=== PATIENT | male | born 1940 | race Caucasian/White ===

== ENCOUNTER → 2017-03-31 14:11 | Outpatient (CLI) | payer MEDICARE, OTHER, SELFPAY ==
[2017-03-31 15:52] LABS: BUN 24 mg/dL (7-18); Creatinine, Serum 1.49 mg/dL (0.70-1.30); EST Glomerular Filtration Rate 49 mL/min (>60); Est Glom Filt Rate - Afr Amer 59 mL/min (>60)
== END ==
PROVIDERS: Family Provider Family Medicine Geriatric Medicine; PCP Family Medicine Geriatric Medicine; Visit Provider Surgery Vascular Surgery
DX: I65.23 Occlusion and stenosis of bilateral carotid arteries (principal); I70.213 Atherosclerosis of native arteries of extremities with intermittent claudication, bilateral legs; E11.9 Type 2 diabetes mellitus without complications; I25.10 Atherosclerotic heart disease of native coronary artery without angina pectoris; E78.00 Pure hypercholesterolemia, unspecified; I10 Essential (primary) hypertension; Z85.038 Personal history of other malignant neoplasm of large intestine; Z87.891 Personal history of nicotine dependence
CPT/HCPCS: 36415; 82565; 84520

== ENCOUNTER → 2017-04-26 07:49 | Outpatient (CLI) | payer MEDICARE, OTHER, SELFPAY ==
--- NOTE | 2017-04-26 07:53 | CT_ITS ---
STUDY: CTA NECK WITH CONTRAST REASON FOR EXAM: Male, 76 years old. History of carotid stenosis. RADIATION DOSAGE (If Supplied By Facility): CTDIvol = ( 18.46 ) mGy, DLP = ( 642.75 ) mGycm TECHNIQUE: CT angiography with multi-detector data acquisition was performed from the aortic arch to the skull base following intravenous administration of 100 ml of Isovue 370 contrast. MIP images were reconstructed from the axial data set. Post-processing of the angiographic images was performed, with multiplanar reformation and 3D reconstruction. Individualized dose optimization techniques were used for this CT. COMPARISON: None. FINDINGS: AORTIC ARCH: There is atherosclerotic calcific plaque formation of the aortic arch and great vessels arising from the aortic arch, without a hemodynamically significant stenosis. There is a normal origin of the brachiocephalic, left common carotid, and left subclavian arteries. Prior coronary artery bypass surgery. Normal origins of the brachiocephalic, left common carotid, and left subclavian arteries. RIGHT CAROTID ARTERIES: Normal right common carotid artery (CCA). Normal right common carotid bulb. There is moderate atherosclerotic plaque formation of the origin of the right internal carotid artery with an estimated stenosis of 50-69% stenosis. Findings suggestive of a ulcerated plaque at the origin of the right internal carotid artery. Normal visualized cervical portion of the right internal carotid artery. Normal origin of the right external carotid artery (ECA). LEFT CAROTID ARTERIES: Normal left common carotid artery (CCA). Normal left common carotid bulb. There is mild atherosclerotic plaque formation of the origin of the left internal carotid artery with less than 50% cross sectional diameter stenosis. Normal visualized cervical portion of the left internal carotid artery. Normal origin of the left external carotid artery (ECA). VERTEBRAL ARTERIES: There is enhancement within the bilateral vertebral arteries with a small right vertebral artery, and a dominant left vertebral artery. CT/CTA Neck W/WO Contrast IMPRESSION: 50-70% narrowing of the right internal carotid artery at its origin with the findings suggestive of possible ulceration at its origin. Electronically Signed: Zain Collier MD at 11:48 EST Tel [phone], Service support ,
--- NOTE | 2017-04-26 08:07 | AAVD_ITS ---
Reason For Study: Atherosclerosis Aorta Measurements Aorta Doppler Measurements Proximal aorta measures1.51cm x 1.49cm. in cross-Peak systolic flow velocities within the proximal sectional axis. aorta measure 85 cm/sec. Proximal aorta measures1.53cm. in longitudinal Peak systolic flow velocities within the mid axis. aorta measure 89 cm/sec. Mid aorta measures1.46cm x 1.66cm. in cross- Peak systolic flow velocities within the distal sectional axis. aorta measure 82 cm/sec. Mid aorta measures1.46cm. in longitudinal axis. Distal aorta measures1.34cm x 1.46cm. in cross- sectional axis. Distal aorta measures1.40cm. in longitudinal axis. Left Iliac Artery Peak systolic velocity in the left iliac artery measures 134 cm/sec. Left iliac artery measures 1.38cm x1.47 cm. in the cross-sectional axis. Left iliac artery measures 1.22 cm. in the longitudinal axis. Right Iliac Artery Right iliac artery measures 0.94cm x 1.01 cm. in the cross-sectional axis. Right iliac artery measures 1.10 cm. in the longitudinal axis. Peak systolic velocity in the right iliac artery measures 124 cm/sec. Procedure Aorta IVC Iliac vasculature or bypass grafts [id number]. The exam was of poor technical quality due to bowel gas. Exam performed in department. Interpretation Summary 1. Aortoiliac with no aneurysm or stenosis seen. Ordering Physician: Luis Antonio Harrell Referring Physician: Hunter Becker Chi Performed By: Kacie Freitas, RO, RVT
--- NOTE | 2017-04-28 13:22 | LEAS ---
Arterial Study - Arterial Study Arterial Study: Date of scan 04/26/[address] Harrell Patient with a history of iliac stenting here for follow-up evaluation Interpretation: Right lower extremity normal pulsatile flow noted at the ankle duplex showing triphasic flow both vessels at the ankle with an SE 0.99 in the posterior tib 1.0 for the dorsalis pedis. Digital brachial index 0.55 next Left lower extremity normal pulsatile flow noted at the ankle again triphasic flow is noted with a SE 0.99 in the posterior tibial and 1.07 of the dorsalis pedis. Digital brachial index 0.52 Impression: 1. Bilateral lower extremities with no evidence significant arterial occlusive disease at rest with triphasic flow noted SE 1.04 and 1.07. 2. Mild small vessel disease bilaterally with digit brachial index 0.55 and 0.52
--- NOTE | 2017-04-28 13:27 | LEAS_ITS ---
Arterial Study - Arterial Study Arterial Study: Date of scan 04/26/[address] Harrell Patient with a history of iliac stenting here for follow-up evaluation Interpretation: Right lower extremity normal pulsatile flow noted at the ankle duplex showing triphasic flow both vessels at the ankle with an SE 0.99 in the posterior tib 1.0 for the dorsalis pedis. Digital brachial index 0.55 next Left lower extremity normal pulsatile flow noted at the ankle again triphasic flow is noted with a SE 0.99 in the posterior tibial and 1.07 of the dorsalis pedis. Digital brachial index 0.52 Impression: 1. Bilateral lower extremities with no evidence significant arterial occlusive disease at rest with triphasic flow noted SE 1.04 and 1.07. 2. Mild small vessel disease bilaterally with digit brachial index 0.55 and 0.52
== END ==
PROVIDERS: Family Provider Family Medicine Geriatric Medicine; PCP Family Medicine Geriatric Medicine; Visit Provider Surgery Vascular Surgery
DX: I65.23 Occlusion and stenosis of bilateral carotid arteries (principal); I70.213 Atherosclerosis of native arteries of extremities with intermittent claudication, bilateral legs; E11.9 Type 2 diabetes mellitus without complications; I25.10 Atherosclerotic heart disease of native coronary artery without angina pectoris; E78.00 Pure hypercholesterolemia, unspecified; Z85.038 Personal history of other malignant neoplasm of large intestine; Z87.891 Personal history of nicotine dependence
CPT/HCPCS: 70498; 93922; 93978; Q9967

== ENCOUNTER → 2017-05-23 13:48 | Outpatient (CLI) | payer MEDICARE, OTHER, SELFPAY ==
[2017-05-23 14:19] LABS: Absolute Lymphocyte Count 2.14 X10^3/ul (0.83-4.51); Absolute Neutrophil Count 3.1 X10^3/uL (2.0-7.7); Basophil# 0.02 X10^3/uL; Basophil% 0.3 % (0-1); Eosinophil# 0.22 X10^3/uL; Eosinophils% 3.7 % (0-5); Hemoglobin 14.2 g/dl (13.0-16.5); Lymphocyte # 2.14 X10^3/ul (4.0); Mean Corpuscular Hgb 31.1 pg (27.0-32.0); Mean Corpuscular Volume 94.1 fL (80-94); Monocyte# 0.44 X10^3/uL; Monocyte% 7.4 % (0-10); Neutrophil # 3.11 X10^3/uL (2.7-7.7); Neutrophil % 52.4 % (47-70); POSITIVE COUNT NO; POSITIVE DIFFERENTIAL NO; POSITIVE MORPHOLOGY NO; Platelet Count 246 K/mm3 (150-450); RBC Distribution Width CV 13.3 % (11.6-14.6); RBC Distribution Width SD 45.8 fl (35.1-43.9); Red Blood Count 4.57 M/mm3 (4.6-6.2); White Blood Count 5.9 K/mm3 (4.4-11.0)
[2017-05-23 14:42] LABS: ALB/GLOB Ratio 0.9 RATIO (0.9-2.4); AST(SGOT) 11 U/L (15-37); Alanine Aminotransfer ALT/SGPT 22 U/L (16-61); Albumin, Serum 3.6 g/dL (3.2-5.0); Alkaline Phosphatase 83 U/L (45-117); Anion Gap 5 (5-15); BUN 18 mg/dL (7-18); BUN/Creat Ratio 15.9 RATIO (10-20); Calcium,Total 8.9 mg/dL (8.5-10.1); Chloride 106 mmol/L (98-107); Creatinine, Serum 1.13 mg/dL (0.70-1.30); EST Glomerular Filtration Rate 67 mL/min (>60); Est Glom Filt Rate - Afr Amer 81 mL/min (>60); Globulin 4.2 g/dL (2.2-4.2); Glucose 102 mg/dL (74-106); Potassium 4.5 mmol/L (3.5-5.1); Protein, Total 7.8 g/dL (6.4-8.2); Sodium Level 139 mmol/L (136-145)
[2017-05-24 08:33] LABS: Vitamin D,25 Hydroxy 29.9 ng/mL (29.95-100.01)
== END ==
PROVIDERS: Family Provider Family Medicine Geriatric Medicine; PCP Family Medicine Geriatric Medicine; Visit Provider Family Medicine Geriatric Medicine
DX: E11.9 Type 2 diabetes mellitus without complications (principal); I10 Essential (primary) hypertension; E55.9 Vitamin D deficiency, unspecified
CPT/HCPCS: 36415; 80053; 82306; 84443; 85025

== ENCOUNTER → 2017-05-23 14:09 | Outpatient (CLI) | payer MEDICARE, OTHER, SELFPAY ==
--- NOTE | 2017-05-23 14:11 | CT_ITS ---
STUDY: CT CHEST WITH CONTRAST REASON FOR EXAM: Male, 76 years old. Shortness of breath. History of lung cancer with a left upper lobe resection. History of colon cancer as well. RADIATION DOSAGE (If Supplied By Facility): CTDIvol = ( 16.42 ) mGy, DLP = ( 588.32 ) mGycm TECHNIQUE: Transaxial imaging was performed following intravenous administration of 100 ml of Isovue 300 contrast material. Multiplanar coronal and sagittal images were reformatted. Individualized dose optimization techniques were used for this CT. COMPARISON: Comparison is made with prior examination dated October 20, 2015. FINDINGS: A left-sided portacatheter is seen. Small bilateral axillary lymph nodes. The previously seen left upper lobe spiculated nodule has been removed. There is evidence of postoperative changes with volume loss in the left upper lobe 8 with prior lobectomy. There is evidence of a small left pleural effusion with left basilar atelectasis. Emphysematous changes are seen in the lungs more prominent in the right lung. Sternal cerclage wires and vascular clips are present from a prior sternotomy and coronary artery bypass graft procedure (CABG). There are calcifications of the coronary arteries. There is a 1.3 cm x 0.8 cm filling defect in the left atrium just proximal to the insertion of the left inferior pulmonary venous return. There are multiple small lymph nodes within the mediastinum, which are normal in size and morphology most compatible with reactive lymph hyperplasia. Normal hilar regions. Normal enhanced pulmonary arteries. There is atherosclerotic calcification of the aortic arch arch and descending thoracic aorta. There are multi-level degenerative changes of the thoracic spine. There is no demonstrated abnormality of the visualized upper abdomen. CT/Chest WITH Contrast IMPRESSION: Status post left upper lobectomy with resection. Small left pleural effusion with underlying atelectasis at the left lung base. Filling defect in the left atrium as described. This most likely represents a thrombus. Electronically Signed: Zain Collier MD at 15:29 EDT Tel [phone], Service support ,
== END ==
PROVIDERS: Family Provider Family Medicine Geriatric Medicine; PCP Family Medicine Geriatric Medicine; Visit Provider Family Medicine Geriatric Medicine
DX: C34.90 Malignant neoplasm of unspecified part of unspecified bronchus or lung (principal); R06.02 Shortness of breath
CPT/HCPCS: 36415; 71260; 80053; 82306; 84443; 85025; Q9967

== ENCOUNTER → 2017-06-16 08:53 | Outpatient (CLI) | payer MEDICARE, OTHER, SELFPAY ==
--- NOTE | 2017-06-16 08:55 | ECHOD_ITS ---
Reason For Study: Assess LA for thrombus Procedure This was a 2D Doppler, Color Flow transthoracic echocardiogram. The exam was of fair technical quality due to diminished acoustic windows. The study was technically difficult. Exam performed in department. Left Ventricle Normal LV size. Left ventricular systolic function is normal. The estimated ejection fraction is 60 %. No regional wall motion abnormalities noted. Right Ventricle Normal RV size. ICD or pacer leads identified within the right ventricle. Normal systolic function. Atria The left atrium is mildly enlarged. Normal right atrium. ICD or pacer leads identified within the right atrium. No doppler evidence for ASD. Mitral Valve There is mild mitral annular calcification. Mild diffuse mitral valve thickening. Mild focal mitral valve calcification, bileaflet. Mild mitral valve prolapse. Trivial mitral valve insufficiency. Tricuspid Valve Normal tricuspid valve. Trivial tricuspid valve insufficiency. Aortic Valve The bioprosthetic aortic valve apparatus is not well visualized, however, based upon the 2D echocardiographic images obtained it appears stable. Mild to moderate aortic stenosis. Pulmonic Valve The pulmonic valve is not well visualized. Trivial pulmonic valve insufficiency. Great Vessels Normal sized aortic root. Calcified aortic root. Pericardium/Pleural No pericardial effusion. MMode/2D Measurements & Calculations LVIDd: 4.2 cm IVSd: 1.3 cm LVOT diam: 2.1 cm LVIDs: 2.9 cm LVPWd: 1.2 cm LVOT area: 3.3 cm2 FS: 30.6 % Ao root diam: 3.2 cm Doppler Measurements & Calculations MV E max moisés: 102.9 cm/sec Lat Peak E' Moisés: 4.8 cm/sec Med Peak E' Moisés: 3.2 cm/sec MV A max moisés: 161.9 cm/sec E/E' lat: 21.5 E/E' med: 32.5 MV E/A: 0.64 MV V2 max: 175.0 cm/sec Ao V2 max: 310.2 cm/sec LV V1 max: 139.6 cm/sec MV max P.3 mmHg Ao max P.5 mmHg LV V1 max P.8 mmHg MV V2 mean: 103.8 cm/sec Ao V2 mean: 217.5 cm/sec LV V1 mean P.8 mmHg MV mean P.8 mmHg Ao mean P.6 mmHg LV V1 mean: 104.3 cm/sec MV V2 VTI: 41.0 cm Ao V2 VTI: 70.7 cm LV V1 VTI: 32.7 cm MVA(VTI): 2.7 cm2 BHAKTI(I,D): 1.5 cm2 BHAKTI(V,D): 1.5 cm2 SV(LVOT): 109.3 ml PA V2 max: 79.1 cm/sec Interpretation Summary The study was technically difficult. Left ventricular systolic function is normal. The estimated ejection fraction is 60 %. The left atrium is mildly enlarged. There is mild mitral annular calcification. Mild diffuse mitral valve thickening. Mild focal mitral valve calcification, bileaflet. Mild mitral valve prolapse. Trivial mitral valve insufficiency. Trivial tricuspid valve insufficiency. The bioprosthetic aortic valve apparatus is not well visualized, however, based upon the 2D echocardiographic images obtained it appears stable. Mild to moderate aortic stenosis. Trivial pulmonic valve insufficiency. Calcified aortic root. ICD or pacer leads identified within the right atrium ICD or pacer leads identified within the right ventricle. Transmitral diastolic flow velocities suggest diastolic dysfunction. 2D echocardiographic images obtained demonstrate a vague echodensity in the left atrium (approximately 1.0 cm x 1.5 cm) of uncertain etiology potentially c/w echocardiographic artifact, however, other etiologies cannot be excluded. Consider further evaluation with ELIJAH if clinically indicated. Ordering Physician: Hunter Becker Referring Physician: Hunter Becker Chi Performed By: Sulema Gongora RDCS
== END ==
PROVIDERS: Family Provider Family Medicine Geriatric Medicine; PCP Family Medicine Geriatric Medicine; Visit Provider Family Medicine Geriatric Medicine
DX: I23.6 Thrombosis of atrium, auricular appendage, and ventricle as current complications following acute myocardial infarction (principal)
CPT/HCPCS: 93306

== ENCOUNTER → 2017-07-18 10:00 | Outpatient (CLI) | payer MEDICARE, OTHER, SELFPAY ==
--- NOTE | 2017-07-18 10:02 | ECHOTEE_ITS ---
Reason For Study: ATRIAL THROMBUS Medication ELIJAH probe passed with minimal difficulty. No complications were noted. Cetacaine Topical Orbisonia given X3 orally. Versed 2 mg given slow IVP. Fentanyl 100 mcg given slow IVP. Performed a rapid injection of agitated mix of 9 cc saline and 1cc air to assess for atrial septal defect. Left Ventricle Normal LV size. Left ventricular systolic function is normal. The estimated ejection fraction is 65 %. No regional wall motion abnormalities noted. Right Ventricle Normal RV size. ICD or pacer leads identified within the right ventricle. Normal systolic function. Atria No doppler evidence for ASD. Bubble contrast study negative for right to left interatrial shunt. The left atrium is mildly enlarged. There is no sponatenous contrast in the left atrium. No thrombus is detected in the left atrial appendage. Normal right atrium. There is no sponatenous contrast in the right atrium. No RA / appendage thrombus identified. ICD or pacer leads identified within the right atrium. Mitral Valve There is mild mitral annular calcification. Mild diffuse mitral valve thickening. Mild focal mitral valve calcification, bileaflet. Mild-Moderate (1-2+) mitral valve insufficiency. Tricuspid Valve Normal tricuspid valve. Trivial tricuspid valve insufficiency. Aortic Valve Stable appearing bioprosthetic aortic valve apparatus. Pulmonic Valve The pulmonic valve is not well visualized. Vessels Moderate atherosclerosis of the descending aorta. Pericardium No pericardial effusion. Interpretation Summary Left ventricular systolic function is normal. The estimated ejection fraction is 65 %. The left atrium is mildly enlarged. There is no sponatenous contrast in the left atrium. No thrombus is detected in the left atrial appendage. There is mild mitral annular calcification. Mild diffuse mitral valve thickening. Mild focal mitral valve calcification, bileaflet. Mild-Moderate (1-2+) mitral valve insufficiency. Trivial tricuspid valve insufficiency. Stable appearing bioprosthetic aortic valve apparatus. Bubble contrast study negative for right to left interatrial shunt. Moderate atherosclerosis of the descending aorta. ICD or pacer leads identified within the right atrium ICD or pacer leads identified within the right ventricle. 2D echocardiographic images appearing c/w a prominent Ridge of Warfarin. Comment: C/W the previous ELIJAH of 01/08/2013 there are similar type findings. Ordering Physician: Henrik Caldwell Referring Physician: Hunter Becker Chi Performed By: Cassandra Hoover, RO, RVT
--- NOTE | 2017-07-18 13:04 | PCM.HP.BLA ---
Problem List (1) Left atrial mass Status: Acute History and Physical Date of Admission: 07/18/17 Date: 07/18/2017 Pre-transesophageal echocardiogram H&P update/addendum For history of present illness, past medical history, family history, social history, review of systems, physical examination, impression and plan, please see previously dictated outpatient history of present illness. The patient has undergone noncardiovascular evaluation. He had a chest CT scan performed on 05/23/2017. Per the radiology report there was concerns of an underlying left atrium filling defect concerning for thrombus. The patient subsequently underwent a thoracic echocardiogram. Based upon the transthoracic echocardiographic images a left atrial echodensity could not be excluded. Thus the patient has been referred for further evaluation with transesophageal echocardiogram to evaluate for any obvious intracardiac mass lesion/thrombus, etc. The procedure and risks have been discussed with the patient and he was agreeable to this approach. This procedure is scheduled for [facility] on 07/18/2017.
== END ==
PROVIDERS: Family Provider Family Medicine Geriatric Medicine; PCP Family Medicine Geriatric Medicine; Visit Provider Internal Medicine Cardiovascular Disease
DX: I44.2 Atrioventricular block, complete (principal); R93.1 Abnormal findings on diagnostic imaging of heart and coronary circulation
CPT/HCPCS: 93312; 93320; 93325; J7030

== ENCOUNTER → 2017-08-31 12:12 | Outpatient (CLI) | payer MEDICARE, OTHER, SELFPAY ==
[2017-08-31 12:32] LABS: Absolute Lymphocyte Count 1.66 X10^3/ul (0.83-4.51); Absolute Neutrophil Count 5.7 X10^3/uL (2.0-7.7); Basophil# 0.01 X10^3/uL; Basophil% 0.1 % (0-1); Eosinophil# 0.02 X10^3/uL; Eosinophils% 0.3 % (0-5); Hematocrit 44.8 % (40-54); Hemoglobin 15.2 g/dl (13.0-16.5); Lymphocyte # 1.66 X10^3/ul (4.0); Lymphocyte % 20.8 % (19-41); Mean Corp Hgb Conc 33.9 g/gl (32-36); Mean Corpuscular Hgb 30.9 pg (27.0-32.0); Mean Corpuscular Volume 91.1 fL (80-94); Mean Platelet Vol. 10.7 fl (6.2-12.0); Monocyte# 0.62 X10^3/uL; Monocyte% 7.8 % (0-10); Neutrophil # 5.66 X10^3/uL (2.7-7.7); Neutrophil % 70.9 % (47-70); POSITIVE COUNT NO; POSITIVE DIFFERENTIAL NO; POSITIVE MORPHOLOGY NO; Platelet Count 212 K/mm3 (150-450); RBC Distribution Width CV 12.9 % (11.6-14.6); Red Blood Count 4.92 M/mm3 (4.6-6.2)
[2017-08-31 12:49] LABS: ALB/GLOB Ratio 0.7 RATIO (0.9-2.4); AST(SGOT) 9 U/L (15-37); Alanine Aminotransfer ALT/SGPT 18 U/L (16-61); Albumin, Serum 3.4 g/dL (3.2-5.0); Alkaline Phosphatase 80 U/L (45-117); Anion Gap 11 (5-15); BUN 21 mg/dL (7-18); BUN/Creat Ratio 10.3 RATIO (10-20); Calcium,Total 8.8 mg/dL (8.5-10.1); Chloride 100 mmol/L (98-107); Creatinine, Serum 2.03 mg/dL (0.70-1.30); EST Glomerular Filtration Rate 34 mL/min (>60); Est Glom Filt Rate - Afr Amer 41 mL/min (>60); Globulin 4.6 g/dL (2.2-4.2); Glucose 120 mg/dL (74-106); Potassium 4.4 mmol/L (3.5-5.1); Sodium Level 136 mmol/L (136-145)
--- NOTE | 2017-08-31 14:48 | CT_ITS ---
STUDY: CT ABDOMEN AND PELVIS WITHOUT CONTRAST REASON FOR EXAM: Male, 76 years old. Left-sided abdominal pain. The patient has a history of colon cancer and colectomy. RADIATION DOSAGE (If Supplied By Facility): CTDIvol = ( 18.13 ) mGy, DLP = ( 937.37 ) mGycm TECHNIQUE: Transaxial images were obtained from the dome of the diaphragm to the symphysis pubis without oral contrast, and without intravenous contrast. Sagittal and coronal images were reconstructed. Individualized dose optimization techniques were used for this CT. COMPARISON: None. FINDINGS: Small left pleural effusion with underlying atelectasis and/or scarring. Chronic changes at the right lung base. Coronary artery calcification. Normal liver. The patient is status post cholecystectomy. Normal spleen. Normal pancreas. Normal bilateral adrenal glands. Normal right kidney. Normal left kidney. Nonspecific bilateral perinephric stranding. Normal visualized stomach. Normal small intestine. There are multiple colonic diverticula consistent with diverticulosis. There is evidence of prior right hemicolectomy. The patient is status post appendectomy. There is diffuse atherosclerotic calcification of the abdominal aorta and its major visceral branches, without a demonstrated aneurysm. Normal inferior vena cava. Normal retroperitoneum. Normal urinary bladder. Normal abdominal wall. There are degenerative changes of the visualized lumbar spine. 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 CT/Abdomen/Pelvis without Cont IMPRESSION: Sigmoid diverticulosis. Electronically Signed: Zain Collier MD at 15:19 EDT Tel [phone], Service support ,
== END ==
PROVIDERS: Family Provider Family Medicine Geriatric Medicine; PCP Family Medicine Geriatric Medicine; Visit Provider Family Medicine Geriatric Medicine
DX: R10.9 Unspecified abdominal pain (principal)
CPT/HCPCS: 36415; 74176; 80053; 85025

== ENCOUNTER → 2017-09-01 09:26 | Outpatient (CLI) | payer MEDICARE, OTHER, SELFPAY ==
--- NOTE | 2017-09-01 09:30 | US_ITS ---
STUDY: RENAL ULTRASOUND - COMPLETE REASON FOR EXAM: Male, 76 years old. Renal failure. TECHNIQUE: Ultrasound evaluation of the kidneys was performed with real-time and static knowles-scale imaging. COMPARISON: None. FINDINGS: RIGHT KIDNEY: Normal location of the right kidney, which is normal in size. The right kidney measures 11.3 cm x 5.2 cm x 5.3 cm. There is a normal cortex of the right kidney. The renal cortex measures 1.4 cm. There is no right renal mass or cyst. There are no right renal calculi. There is no right hydronephrosis. DISTAL RIGHT URETER: There is non-visualization of the distal right ureter. There is no demonstrated right ureterovesical junction calculus. There is a visualized right ureteral jet. LEFT KIDNEY: Normal location of the left kidney, which is normal in size. The left kidney measures 10.5 cm x 5.1 cm x 4.4 cm. There is a normal cortex of the left kidney. The renal cortex measures 1.5 cm. There is no left renal mass or cyst. There are no left renal calculi. There is no left hydronephrosis. DISTAL LEFT URETER: There is non-visualization of the distal left ureter. There is no demonstrated left ureterovesical junction calculus. There is a visualized left ureteral jet. BLADDER: The distended urinary bladder has a volume of 225 ml. There is a normal wall thickness of the distended urinary bladder. There is no demonstrated mass within the urinary bladder. There are no demonstrated bladder calculi. US/Kidney and Bladder IMPRESSION: Normal ultrasound of the kidneys and urinary bladder. Electronically Signed: Zain Collier MD at 10:22 EDT Tel [phone], Service support ,
[2017-09-01 12:39] LABS: Anion Gap 9 (5-15); BUN 26 mg/dL (7-18); BUN/Creat Ratio 12.4 RATIO (10-20); Calcium,Total 8.2 mg/dL (8.5-10.1); Chloride 100 mmol/L (98-107); Creatinine, Serum 2.09 mg/dL (0.70-1.30); EST Glomerular Filtration Rate 33 mL/min (>60); Est Glom Filt Rate - Afr Amer 40 mL/min (>60); Glucose 141 mg/dL (74-106); Potassium 3.9 mmol/L (3.5-5.1); Sodium Level 136 mmol/L (136-145)
== END ==
PROVIDERS: Family Provider Family Medicine Geriatric Medicine; PCP Family Medicine Geriatric Medicine; Visit Provider Family Medicine Geriatric Medicine
DX: N19 Unspecified kidney failure (principal)
CPT/HCPCS: 36415; 76770; 80048

== ENCOUNTER → 2017-09-08 10:57 | Outpatient (CLI) | payer MEDICARE, OTHER, SELFPAY ==
[2017-09-08 13:09] LABS: Anion Gap 10 (5-15); BUN 17 mg/dL (7-18); BUN/Creat Ratio 9.7 RATIO (10-20); Calcium,Total 8.9 mg/dL (8.5-10.1); Chloride 98 mmol/L (98-107); Creatinine, Serum 1.75 mg/dL (0.70-1.30); EST Glomerular Filtration Rate 40 mL/min (>60); Est Glom Filt Rate - Afr Amer 49 mL/min (>60); Glucose 125 mg/dL (74-106); Potassium 3.7 mmol/L (3.5-5.1); Sodium Level 138 mmol/L (136-145)
== END ==
PROVIDERS: Family Provider Family Medicine Geriatric Medicine; PCP Family Medicine Geriatric Medicine; Visit Provider Family Medicine Geriatric Medicine
DX: I10 Essential (primary) hypertension (principal)
CPT/HCPCS: 36415; 80048

== ENCOUNTER → 2017-09-08 12:22 | Outpatient (CLI) | payer MEDICARE, OTHER, SELFPAY ==
--- NOTE | 2017-09-08 12:24 | ECHOD_ITS ---
Reason For Study: SOB Procedure This was a 2D Doppler, Color Flow transthoracic echocardiogram. The exam was of fair technical quality due to diminished acoustic widows. The study was technically difficult. Exam performed in department. Left Ventricle Normal LV size. Left ventricular systolic function is normal. The estimated ejection fraction is 65 %. There is evidence of diastolic dysfunction. No regional wall motion abnormalities noted. Right Ventricle Normal RV size. ICD or pacer leads identified within the right ventricle. Normal systolic function. Atria The left atrium is mildly enlarged. Normal right atrium. ICD or pacer leads identified within the right atrium. No doppler evidence for ASD. Mitral Valve There is mild mitral annular calcification. Mild diffuse mitral valve thickening. Mild focal mitral valve calcification, bileaflet. Trivial mitral valve insufficiency. Tricuspid Valve Normal tricuspid valve. Trivial tricuspid valve insufficiency. Unable to estimate RV systolic pressure/pulmonary artery pressure due to technically difficult study. Aortic Valve The bioprosthetic aortic valve apparatus is not well visualized, however, based upon the 2D echocardiographic images obtained it appears stable. Mild to moderate aortic stenosis. Pulmonic Valve The pulmonic valve is not well visualized. Great Vessels Normal sized aortic root. Pericardium/Pleural No pericardial effusion. MMode/2D Measurements & Calculations LVIDd: 4.8 cm IVSd: 1.4 cm LVOT diam: 2.1 cm LVIDs: 2.7 cm LVPWd: 1.2 cm LVOT area: 3.5 cm2 FS: 43.4 % Ao root diam: 2.5 cm LAV(MOD-sp4): 60.6 ml LA A4 area: 20.7 cm2 LA dimension: 4.8 cm Time Measurements MV dec time: 0.28 sec Doppler Measurements & Calculations MV E max moisés: 136.6 cm/sec Lat Peak E' Moisés: 5.7 cm/sec Med Peak E' Moisés: 5.3 cm/sec MV A max moisés: 177.1 cm/sec E/E' lat: 23.8 E/E' med: 25.8 MV E/A: 0.77 MV V2 max: 218.6 cm/sec MV P1/2t max moisés: 156.0 cm/sec Ao V2 max: 342.4 cm/sec MV max P.1 mmHg MV P1/2t: 74.2 msec Ao max P.9 mmHg MV V2 mean: 135.5 cm/sec MV dec slope: 615.5 cm/sec2 Ao V2 mean: 225.7 cm/sec MV mean P.4 mmHg MVA(P1/2t): 3.0 cm2 Ao mean P.2 mmHg MV V2 VTI: 45.2 cm Ao V2 VTI: 68.2 cm MVA(VTI): 2.4 cm2 BHAKTI(I,D): 1.6 cm2 BHAKTI(V,D): 1.4 cm2 LV V1 max: 140.1 cm/sec SV(LVOT): 108.8 ml PA V2 max: 115.6 cm/sec LV V1 max P.9 mmHg LV V1 mean P.1 mmHg LV V1 mean: 93.2 cm/sec LV V1 VTI: 31.1 cm Interpretation Summary The study was technically difficult. Left ventricular systolic function is normal. The estimated ejection fraction is 65 %. The left atrium is mildly enlarged. There is mild mitral annular calcification. Mild diffuse mitral valve thickening. Mild focal mitral valve calcification, bileaflet. Trivial mitral valve insufficiency. Trivial tricuspid valve insufficiency. The bioprosthetic aortic valve apparatus is not well visualized, however, based upon the 2D echocardiographic images obtained it appears stable. Mild to moderate aortic stenosis. Unable to estimate RV systolic pressure/pulmonary artery pressure due to technically difficult study. There is evidence of diastolic dysfunction. ICD or pacer leads identified within the right atrium ICD or pacer leads identified within the right ventricle. Ordering Physician: Hunter Becker Referring Physician: Hunter Becker Chi Performed By: Hubert Lehman RCS
--- NOTE | 2017-09-08 13:45 | RAD_ITS ---
STUDY: X-RAY - ABDOMEN/PELVIS REASON FOR EXAM: Male, 76 years old. Pt found out he has diverticulitis 1 week ago just finished meds today has had nausea for around 8 days history of gall bladder removal history of colon and lung cancer a couple years ago had part of his colon removed TECHNIQUE: Single AP view of the abdomen / pelvis. COMPARISON: None. FINDINGS: Normal visualized lung bases. Multiple median sternotomy wires are noted consistent for cardiac surgery. There is a moderate amount of colonic fecal material. There is no demonstrated free abdominal air. The visualized liver, spleen and kidneys are grossly normal in size and morphology. Normal soft tissue structures. There are diffuse degenerative changes of the visualized lumbar spine. RAD/Abdomen Single View IMPRESSION: Constipation. Electronically Signed: Wilmar Mitchell MD at 20:31 EDT , Service support ,
== END ==
PROVIDERS: Family Provider Family Medicine Geriatric Medicine; PCP Family Medicine Geriatric Medicine; Visit Provider Family Medicine Geriatric Medicine
DX: R06.02 Shortness of breath (principal); R10.9 Unspecified abdominal pain
CPT/HCPCS: 74018; 93306

== ENCOUNTER → 2017-11-24 10:41 | Outpatient (CLI) | payer MEDICARE, OTHER, SELFPAY ==
[2017-11-24 11:55] LABS: Absolute Lymphocyte Count 1.85 X10^3/ul (0.83-4.51); Absolute Neutrophil Count 3.2 X10^3/uL (2.0-7.7); Basophil# 0.02 X10^3/uL; Basophil% 0.3 % (0-1); Eosinophil# 0.28 X10^3/uL; Eosinophils% 4.9 % (0-5); Hematocrit 40.4 % (40-54); Hemoglobin 13.2 g/dl (13.0-16.5); Lymphocyte # 1.85 X10^3/ul (4.0); Lymphocyte % 32.2 % (19-41); Mean Corp Hgb Conc 32.7 g/gl (32-36); Mean Corpuscular Hgb 29.8 pg (27.0-32.0); Mean Corpuscular Volume 91.2 fL (80-94); Mean Platelet Vol. 11.2 fl (6.2-12.0); Monocyte# 0.39 X10^3/uL; Monocyte% 6.8 % (0-10); Neutrophil # 3.19 X10^3/uL (2.7-7.7); Neutrophil % 55.6 % (47-70); Platelet Count 231 K/mm3 (150-450); RBC Distribution Width CV 13.5 % (11.6-14.6); RBC Distribution Width SD 45.1 fl (35.1-43.9); Red Blood Count 4.43 M/mm3 (4.6-6.2); White Blood Count 5.7 K/mm3 (4.4-11.0)
[2017-11-24 11:57] LABS: POSITIVE COUNT NO; POSITIVE DIFFERENTIAL NO; POSITIVE MORPHOLOGY NO
[2017-11-24 12:20] LABS: Vitamin D,25 Hydroxy 21.1 ng/mL (29.95-100.01)
[2017-11-24 12:30] LABS: ALB/GLOB Ratio 0.8 RATIO (0.9-2.4); AST(SGOT) 9 U/L (15-37); Alanine Aminotransfer ALT/SGPT 20 U/L (16-61); Albumin, Serum 3.4 g/dL (3.2-5.0); Alkaline Phosphatase 82 U/L (45-117); Anion Gap 10 (5-15); BUN 32 mg/dL (7-18); BUN/Creat Ratio 17.7 RATIO (10-20); Calcium,Total 8.8 mg/dL (8.5-10.1); Chloride 105 mmol/L (98-107); Creatinine, Serum 1.81 mg/dL (0.70-1.30); EST Glomerular Filtration Rate 39 mL/min (>60); Est Glom Filt Rate - Afr Amer 47 mL/min (>60); Globulin 4.1 g/dL (2.2-4.2); Glucose 114 mg/dL (74-106); Potassium 4.9 mmol/L (3.5-5.1); Protein, Total 7.5 g/dL (6.4-8.2); Sodium Level 138 mmol/L (136-145); Thyroid Stim Hormone (TSH) 1.44 uIU/mL (0.358-3.74)
== END ==
PROVIDERS: Family Provider Family Medicine Geriatric Medicine; PCP Family Medicine Geriatric Medicine; Visit Provider Family Medicine Geriatric Medicine
DX: E11.9 Type 2 diabetes mellitus without complications (principal); E55.9 Vitamin D deficiency, unspecified; I10 Essential (primary) hypertension
CPT/HCPCS: 36415; 80053; 82306; 84443; 85025

== ENCOUNTER → 2017-12-27 15:40 | Outpatient (CLI) | payer MEDICARE, OTHER, SELFPAY ==
[2017-12-27 17:05] LABS: Microalbumin,Random Urine 48.7 mg/L (NO RANGE EST.); Microalbumin:Creatinine Ratio 33.4 mg/g CRE (<30 mg/g CRE)
== END ==
PROVIDERS: Family Provider Family Medicine Geriatric Medicine; PCP Family Medicine Geriatric Medicine; Visit Provider Family Medicine Geriatric Medicine
DX: N18.3 Chronic kidney disease, stage 3 (moderate) (principal)
CPT/HCPCS: 82043; 82570

== ENCOUNTER → 2018-03-27 12:39 | Outpatient (CLI) | payer MEDICARE, OTHER, SELFPAY ==
[2018-02-19 14:19] VITALS: BMI 29.2
[2018-03-27 14:04] LABS: Hematocrit 45.5 % (40-54); Mean Corpuscular Hgb 31.1 pg (27.0-32.0); Mean Corpuscular Volume 94.4 fL (80-94); Mean Platelet Vol. 11.3 fl (6.2-12.0); Platelet Count 213 K/mm3 (150-450); RBC Distribution Width SD 43.8 fl (35.1-43.9); Red Blood Count 4.82 M/mm3 (4.6-6.2); White Blood Count 5.3 K/mm3 (4.4-11.0)
[2018-03-27 14:07] LABS: Scan Indicated on CBC? Y/N NO
[2018-03-27 14:11] LABS: Albumin, Serum 3.5 g/dL (3.2-5.0); BUN 23 mg/dL (7-18); BUN/Creat Ratio 13.5 RATIO (10-20); Calcium,Total 8.3 mg/dL (8.5-10.1); Chloride 104 mmol/L (98-107); Creatinine, Serum 1.71 mg/dL (0.70-1.30); EST Glomerular Filtration Rate 41 mL/min (>60); Est Glom Filt Rate - Afr Amer 50 mL/min (>60); Glucose 105 mg/dL (74-106); Phosphorus 3.3 mg/dL (2.5-4.9); Potassium 4.9 mmol/L (3.5-5.1); Sodium Level 137 mmol/L (136-145)
--- OUTSIDE RECORDS SUMMARY | 2018-05-29 16:53 | XMS RPT_ITS ---
:1940 Author Organization OHIP Support Name Relationship Address Phone GEORGE BYRNE Unavailable Unavailable + [place] [address] R Unavailable Unavailable Unavailable SHAKIRA, HOMERO Unavailable Unavailable + [place] [address] CHAVEZ, GEORGE Unavailable . + [place] [address] R Unavailable Unavailable Unavailable SHAKIRA, HOMERO Unavailable Unavailable + [place] [address] CHAVEZ, GEORGE Unavailable . + [place] [address] R Unavailable Unavailable Unavailable SHAKIRA, HOMERO Unavailable Unavailable + [place] [address] CHAVEZ, GEORGE Unavailable . + [place] [address] R Unavailable Unavailable Unavailable SHAKIRA, HOMERO Unavailable Unavailable + [place] [address] CHAVEZ, GEORGE Unavailable . + [place] [address] R Unavailable Unavailable Unavailable SHAKIRA, HOMERO Unavailable Unavailable + [place] [address] CHAVEZ, GEORGE Unavailable . + [place] [address] R Unavailable Unavailable Unavailable SHAKIRA, HOMERO Unavailable Unavailable + [place] [address] CHAVEZ, GEORGE Unavailable . + [place] [address] R Unavailable Unavailable Unavailable SHAKIRA, HOMERO Unavailable Unavailable + [place] [address] CHAVEZ, GEORGE Unavailable . + [place] [address] R Unavailable Unavailable Unavailable SHAKIRA, HOMERO Unavailable Unavailable + [place] [address] CHAVEZ, GEORGE Unavailable . + [place] [address] R Unavailable Unavailable Unavailable SHAKIRA, HOMERO Unavailable Unavailable + [place] [address] CHAVEZ, GEORGE Unavailable . + [place] [address] R Unavailable Unavailable Unavailable SHAKIRA, HOMERO Unavailable Unavailable + [place] [address] CHAVEZ, GEORGE Unavailable . + [place] [address] R Unavailable Unavailable Unavailable SHAKIRA, HOMERO Unavailable Unavailable + [place] [address] R Unavailable Unavailable Unavailable R Unavailable Unavailable Unavailable CHAVEZ, RACHEAL Unavailable [address] + [place] [address] R Unavailable Unavailable Unavailable CHAVEZ, RACHEAL Unavailable [address] [phone] [place] [address] R Unavailable Unavailable Unavailable CHAVEZ, RACHEAL Unavailable [address] [phone] [place] [address] R Unavailable Unavailable Unavailable CHAVEZ, RACHEAL Unavailable [address] [phone] [place] [address] R Unavailable Unavailable Unavailable CHAVEZ, RACHEAL Unavailable [address] [phone] [place] [address] R Unavailable Unavailable Unavailable CHAVEZ, RACHEAL Unavailable [address] [phone] [place] [address] R Unavailable Unavailable Unavailable CHAVEZ, RACHEAL Unavailable [address] [phone] [place] [address] R Unavailable Unavailable Unavailable CHAVEZ, RACHEAL Unavailable [address] [phone] [place] [address] R Unavailable Unavailable Unavailable CHAVEZ, RACHEAL Unavailable [address] [phone] [place] [address] R Unavailable Unavailable Unavailable CHAVEZ, RACHEAL Unavailable [address] [phone] [place] [address] R Unavailable Unavailable Unavailable Care Team Providers Name Role Chinmay Kelly Attending Unavailable Eugenio, Hunter Chi Referring Unavailable Pauline Braden Attending Unavailable Eugenio, Hunter Chi Referring Unavailable Zita Dorado Attending Unavailable Eugenio, Hunter Chi Primary Care Unavailable Estrada, Zita Referring Unavailable Luis Antonio Harrell Attending Unavailable Luis Antonio Harrell Referring Unavailable Eugenio, Hunter Chi Primary Care Unavailable Henrik Caldwell Consulting Unavailable Pauline Braden Attending Unavailable Eugenio, Hunter Chi Referring Unavailable Eugenio, Hunter Chi Attending Unavailable Eugenio, Hunter Chi Primary Care Unavailable Eugenio, Hunter Chi Attending Unavailable Eugenio, Hunter Chi Referring Unavailable Eugenio, Hunter Chi Primary Care Unavailable Eugenio, Hunter Chi Attending Unavailable Eugenio, Hunter Chi Referring Unavailable Eugenio, Hunter Chi Primary Care Unavailable MoodHenrik lazo Attending Unavailable Eugenio, Hunter Chi Referring Unavailable MoodHenrik lazo Attending Unavailable MoodispaHenrik keating Referring Unavailable Eugenio, Hunter Chi Primary Care Unavailable Henrik Caldwell Attending Unavailable MoodispaHenrik keating Referring Unavailable Eugenio, Hunter Chi Primary Care Unavailable Henrik Caldwell Consulting Unavailable Pauline Braden Attending Unavailable Eugenio, Hunter Chi Referring Unavailable Eugenio, Hunter Chi Primary Care Unavailable Michelle Quintana Attending Unavailable MoodHenrik lazo Attending Unavailable Eugenio, Hunter Chi Referring Unavailable Eugenio, Hunter Chi Primary Care Unavailable Eugenio, Hunter Chi Attending Unavailable Eugenio, Hunter Chi Primary Care Unavailable Eugenio, Hunter Chi Referring Unavailable Eugenio, Hunter Chi Attending Unavailable Eugenio, Hunter Chi Referring Unavailable Eugenio, Hunter Chi Primary Care Unavailable Eugenio, Hunter Chi Attending Unavailable Eugenio, Hunter Chi Primary Care Unavailable Eugenio, Hunter Chi Attending Unavailable Eugenio, Hunter Chi Referring Unavailable Eugenio, Hunter Chi Primary Care Unavailable Henrik Caldwell Attending Unavailable Eugenio, Hunter Chi Referring Unavailable Eugenio, Hunter Chi Attending Unavailable Eugenio, Hunter Chi Primary Care Unavailable Pauline Braden Attending Unavailable Eugenio, Hunter Chi Referring Unavailable Eugenio, Hunter Chi Attending Unavailable Eugenio, Hunter Chi Primary Care Unavailable PROBLEMS PROBLEMS DATE TYPE CONDITION / CODE ATTENDING STATUS SOURCE 10/10/2017 Unknown R06.02 - Shortness of [place], Active [place] breath / [facility] R06.02(ICD-10) Hospital Repository 09/01/2017 Unknown N19 - Unspecified Eugenio, Hunter Chi Active [facility] kidney failure / Community N19(ICD-10) Hospital Repository 08/31/2017 Unknown R10.9 - Unspecified Eugenio, Hunter Chi Active [facility] abdominal pain / Community R10.9(ICD-10) Hospital Repository 07/18/2017 Unknown I44.2 - [place], Active [facility] Atrioventricular [facility] block, complete / Hospital I44.2(ICD-10) Repository 07/18/2017 Unknown R93.1 - Abnormal [place], Active [facility] findings on diagnostic [facility] imaging of heart and Hospital coronary circulation / Repository R93.1(ICD-10) 06/16/2017 Unknown 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[place], 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, auricular Community appendage, 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 / I23.6(ICD-10) 05/23/2017 Unknown E11.9 - Type 2 Eugenio, Hunter Chi Active [facility] diabetes mellitus Community without complications Hospital / E11.9(ICD-10) Repository 05/23/2017 Unknown E55.9 - Vitamin D Eugenio, Hunter Chi Active [facility] deficiency, Community unspecified / Hospital E55.9(ICD-10) Repository PROCEDURES PROCEDURES No Procedure Records FoundRESULTS RESULTS CBC-COMPLETE BLOOD CNT Collected: 03/27/2018 Status: F Source: [place] NO DIFF 12:47 PM [facility] REPOSITORY TYPE CODE TESTS RESULT OUT OF RANGE REFERENCE UNITS LAB L100.1000 4.4-11.0 K/mm3 Normal WBC 5.3 LAB L100.1200 4.6-6.2 M/mm3 Normal RBC 4.82 LAB L100.1300 13.0-16.5 g/dl Normal HGB 15.0 LAB L100.1400 40-54 % Normal HCT 45.5 LAB L100.1500 80-94 fL High MCV 94.4 LAB L100.1600 27.0-32.0 pg Normal MCH 31.1 LAB L100.1700 32-36 g/gl Normal MCHC 33.0 LAB L100.1810 11.6-14.6 % Normal RDW CV 13.0 LAB L100.1820 35.1-43.9 fl Normal RDW SD 43.8 LAB L100.1900 150-450 K/mm3 Normal PLT 213 LAB L100.2000 6.2-12.0 fl Normal MPV 11.3 Performed By: #### L100.0500 #### [facility] [address] [place], [address] RENAL PROFILE Collected: 03/27/2018 Status: F Source: [place] 12:47 PM [facility] REPOSITORY TYPE CODE TESTS RESULT OUT OF RANGE REFERENCE UNITS LAB L501.0100 74-106 mg/dL Normal GLU 105 Result Comment: Fasting Glucose result from 100 to 125 mg/dL suggests IMPAIRED HOMEOSTASIS per A.D.A. criteria. Please note revised GLUCOSE reference range effective 2017. LAB L501.1000 7-18 mg/dL High BUN 23 LAB L501.1100 0.70-1.30 mg/dL High CREAT,SERUM 1.71 Result Comment: The validity of the calculated GFR AND GFRAA in patients over 70 years has not been determined. Clinical correlation is essential. LAB L501.1110 >60 mL/min Low EST GFR 41 Result Comment: Non- GFR Calc LAB L501.1115 >60 mL/min Low EST GFR - AA 50 Result Comment: GFR Calc LAB L501.1300 10-20 RATIO Normal BUN/CRE 13.5 LAB L501.1800 3.2-5.0 g/dL Normal ALB 3.5 LAB L501.2200 8.5-10.1 mg/dL Low CA 8.3 LAB L501.2300 2.5-4.9 mg/dL Normal PHOS 3.3 LAB L501.5300 136-145 mmol/L NA Normal 137 LAB L501.5600 3.5-5.1 mmol/L K Normal 4.9 Result Comment: Slight Hemolysis, Result may be falsely increased. LAB L501.5900 98-107 mmol/L Normal CL 104 LAB L501.6100 21.0-32.0 mmol/L Normal CO2 27.0 Performed By: #### L500.3600 #### [facility] [address] [place], [address] PTHIN Collected: 03/27/2018 Status: F Source: [place] 12:47 PM [facility] REPOSITORY TYPE CODE TESTS RESULT OUT OF RANGE REFERENCE UNITS LAB L509.1000 18.4-80.1 pg/mL High PTHIN 104.0 Performed By: #### L509.1000 #### [facility] [address] [place], [address] PACEMAKER CHECK Observed: 03/14/2018 Status: F Source: [place] 6:37 PM [facility] REPOSITORY [facility] [address] [place] [address] Pacemaker Check Date of Service: 03/14/181810 MR#: [id number] Acct: [id number] Name: ZORAN BYRNE Rep #: [id number] : 1940 From: Pauline Braden Age/Sex: 77/M Location: [facility] Status: Signed Billing Codes PM Device Codes: PM Dev Interrogate (Remot 03/14/181811 <Electronically signed by Pauline Braden > Date Pauline Braden 03/14/181836<Electronically signed by Henrik Caldwell MD> Cosigner Signature: Date (if applicable) Henrik Caldwell MD CC: CARDIOLOGY VISIT Observed: 02/20/2018 Status: F Source: [place] REPORT 7:25 AM [facility] REPOSITORY [facility] [address] [place] [address] Ave[address] [place] [address] OFFICE VISIT Date of Service: 02/19/18 MR#: [id number] Acct: [id number] Name: ZORAN BYRNE Rep #: [id number] : 1940 Provider: HUA Freitas Age/Sex: 77/M Location: [facility] Status: Signed HPI HPI Details: ZORAN BYRNE, is a 77 M who presents to the office today for a cardiovascular outpatient follow-up. He has a history of CAD status post PCI to mid RCA in April 2002 and CABG with UMANZOR to LAD, and SVG to high lateral and lateral os cervix artery and the posterior descending artery of the RCA in March 2006. 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 Pt denies chest, arm, jaw, or neck discomfort. Her exercise tolerance is stable. Pt denies symptoms of palpitations, lightheadedness, dizziness, near syncopal or syncopal episodes. Pt denies edema or claudication issues. Pt. denies orthopnea, PND, fever, chills, blood in urine, blood in stool, or myalgia. He states SOB after walking some distances that is unchanged. He states left lower rib pain. Intake Vital Signs02/19/18 Height 5 ft 8 in 02/19/18 Weight: 192 lb 02/19/18 Body Mass Index (BMI) 29.2 Intake Visit Reasons: 6 M FU [employer] Required: No Accompanied by: Is patient in pain?: No Allergies No Known Allergies Allergy (Verified 02/19/18 14:40) Medications Doxycycline [Vibramycin] 1 tab PO DAILY 12/31/12 [History Confirmed 02/19/18] Nitroglycerin [Nitrolingual [place]] 0.4 mg SL PRN PRN 12/31/12 [History Confirmed 02/19/18] Aspirin E.C. [Ecotrin] 81 mg PO DAILY@0800 01/21/16 [History Confirmed 02/19/18] Cilostazol [Pletal] 100 mg PO DAILY 01/21/16 [History Confirmed 02/19/18] metoprolol tartrate 50 mg tablet 50 mg PO BID #180 tab 06/21/17 [Rx Confirmed 02/19/18] ramipril 5 mg capsule 5 mg PO DAILY #90 cap 07/26/17 [Rx Confirmed 02/19/18] metformin 500 mg tablet 500 mg PO BID 08/23/17 [History Confirmed 02/19/18] alirocumab 75 mg/mL subcutaneous pen injector 75 mg SC Q2W 02/19/18 [History Confirmed 02/19/18] Ejection fraction %: 65 to 70 PFSH Medical History Atherosclerosis of coronary artery bypass graft without angina pectoris (Chronic) Hyperlipidemia (Chronic) Hypertension (Chronic) Paroxysmal atrial tachycardia (Acute) Tachycardia (Acute) Nonrheumatic aortic valve disorder (Acute) Intermittent claudication (Acute) Carotid bruit (Acute) Left atrial mass (Acute) AV block, 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) Presence of cardiac pacemaker (Chronic) PAD (peripheral artery disease) (Chronic) Surgical History Presence of stent in coronary artery (Chronic) H/O aortic valve replacement (Chronic 03/31/06) S/P insertion of iliac artery stent (Chronic) Aortocoronary bypass status (Chronic 03/31/06) Postsurgical percutaneous transluminal coronary angioplasty (PTCA) status (Chronic) History of cholecystectomy (Resolved) History of lobectomy of lung (Resolved) History of right hemicolectomy (Resolved) Family History Mother Diabetes Social History Smoking Status: Former smoker how long ago did patient quit smokin years ago alcohol intake: current alcohol intake frequency: a few times a week Alcohol type: beer, wine, hard liquor caffeine: Yes Type: coffee Number of servings: 1 ROS Const Const: Negative for weakness, body ache, fever(s), chills or fatigue ENT ENT: Negative for dizziness Cardio Chest Pain: No Palpitations: No Edema: None Muscle aches with walking: None Resp Respiratory: Positive for SOB with activity; negative for SOB at rest, SOB orthopnea\SOB lying down or paroxysmal nocturnal dyspnea GI GI: Negative nausea, black,tarry stools, bright, red blood in stools or vomiting blood/hematemesis : Negative for hematuria or frequent nighttime urination/ nocturia Musc Musc: Negative for muscle aches/ myalgia Skin Skin: Negative non-healing lesions or rash Neuro Neuro: Negative for lightheadedness, near syncope, syncope, orthostatic symptoms, weakness or dizziness Endo Endo: Negative for fatigue Allergy Allergy/Immunology: Negative for rash Cardiology Exam Const Appearance: cooperative, healthy appearing, comfortable and no acute distress Nutritional Appearance: average body habitus and well nourished Orientation: alert, awake and oriented x3 Head Head: normal to inspection Ears: hearing grossly normal bilaterally Nose: external nose normal Face and Sinus: face symmetric Mouth: oral mucosae normal Eyes General: appearance normal, both eyes and all related structures Eyelids: eyelids normal EOM: EOM intact bilaterally Neck Neck: no JVD and normal visual inspection Carotids: normal carotid upstroke Chest Chest inspection: normal inspection of the chest, normal respiratory effort and symmetric chest movement; negative cough Auscultation: Bilateral: Clear to Auscultation Cardio Rate: regular rate Rhythm: regular rhythm Heart sounds: S1 normal and S2 normal; negative rub, gallop or murmur GI GI: normal to inspection Neuro General: alert, awake, oriented x3 and CN's II-XI intact bilaterally Skin Skin: no rashes or lesions noted Extremities Pulses: Normal: Right Posterior Tibial Pulse, Left Posterior Tibial Pulse, Right Radial Pulse, Left Radial Pulse Lower Extremity Edema: None: Bilateral Psych Psychological: normal affect Assessment AND Plan 1. Atherosclerosis of coronary artery bypass graft of [place] heart without angina pectoris I25.810 CABG x4- UMANZOR to LAD, SVG to the high lateral and lateral CX, SVG to PDA of the RCA 03/31/06 Plan His transesophageal echocardiogram July 2017 showed ejection fraction of 65%. His stress test in January 2017 showed myocardial perfusion appeared within normal limits. His heart catheterization in December 2012 showed his UMANZOR to LAD a small atretic nonfunctional vessel, SVG to LCx is approximately 100% occluded, and SVG to RCA without angiographically significant appearing disease. Patient denies any chest pain, arm pain, jaw pain, neck pain, shortness of breath, or fatigue suggestive of angina at this time. We will continue to monitor this. We will not make any medication regimen changes and will continue risk factor modification. 2. Presence of stent in coronary artery Z95.5 PTCA/stent of the mid RCA 04/10/02 Plan He will continue current treatment plan as outlined above. 3. H/O aortic valve replacement Z95.2 St. Live Bicor tissue valve 21mm 03/31/06 Plan His most recent transesophageal echocardiogram July 2017 showed stable appearing bioprosthetic aortic valve apparatus. He will continue current medications and we will continue to monitor. 4. Presence of cardiac pacemaker Z95.0 Plan Pacemaker check from November 2017 showed 9 MS episodes, less than 1% of total time, and 50 NSVT episodes. Battery longevity was approximately 7.5 years. Patient's pacemaker/ICD appears to be functioning appropriately. We will continue to monitor this with routine/scheduled follow-ups. 5. PAD (peripheral artery disease) I73.9 Plan He will continue follow-up with Dr. Harrell for carotid artery disease and previous femoral bypass. 6. Essential hypertension I10 Plan Patient's blood pressure is well-controlled today in the office. We will continue to monitor this. We will not make any medication regimen changes. 7. Hyperlipidemia, unspecified hyperlipidemia type E78.5 Plan He will continue with current cholesterol-lowering medication/injections. Plan Detail Additional Comments Thank you for allowing us to participate in the patient's plan of care, if you have any questions please do not hesitate to call. This note was generated using a voice recognition system and there may be incorrect words, spelling, or punctuation that were not noted upon reviewing the office note prior to saving. Follow Up 13 Months (PFM) 6 Months (PHYSICAL AERODYNAMICIST/PA) Coding Level of Care Code Off vis,est,level 3 Diagnoses Atherosclerosis of coronary artery bypass graft of [place] heart without angina pectoris I25.810 [place] vs. transplanted heart: [place] heart Presence of stent in coronary artery Z95.5 H/O aortic valve replacement Z95.2 Presence of cardiac pacemaker Z95.0 PAD (peripheral artery disease) I73.9 Essential hypertension I10 Hypertension type: essential hypertension Hyperlipidemia, unspecified hyperlipidemia type E78.5 Hyperlipidemia type: unspecified Coding Level of Care Code Off vis,est,level 3 Diagnoses Atherosclerosis of coronary artery bypass graft of [place] heart without angina pectoris I25.810 [place] vs. transplanted heart: [place] heart Presence of stent in coronary artery Z95.5 H/O aortic valve replacement Z95.2 Presence of cardiac pacemaker Z95.0 PAD (peripheral artery disease) I73.9 Essential hypertension I10 Hypertension type: essential hypertension Hyperlipidemia, unspecified hyperlipidemia type E78.5 Hyperlipidemia type: unspecified 02/20/18 0725 <Electronically signed by Chinmay HONG> Date Chinmay HONG Cosigner Signature: Date (if applicable) CC: Hunter Becker MD MICROALB:CREAT Collected: 12/27/2017 Status: F Source: [place] RATIO,RANDOM UR 3:42 PM [facility] REPOSITORY TYPE CODE TESTS RESULT OUT OF RANGE REFERENCE UNITS LAB L501.1200 NO RANGE EST. mg/dL Normal UR CREAT 146.00 LAB L502.0500 NO RANGE EST. mg/L Normal 48.7 MICROALBUMIN ,UR LAB L502.0600 <30 mg/g CRE mg/g CRE High 33.4 MALB:CREAT Performed By: #### L502.0250 #### [facility] [address] [place], [address] PACEMAKER CHECK Observed: 11/29/2017 Status: F Source: [place] 6:07 PM [facility] REPOSITORY [facility] [address] [place] [address] Pacemaker Check Date of Service: 11/29/17 1442 MR#: [id number] Acct: [id number] Name: ZORAN BYRNE Rep #: [id number] : 1940 From: Pauline Braden Age/Sex: 76/M Location: [facility] Status: Signed Billing Codes PM Device Codes: PM Dev Interrogate (Remot 11/29/17 1452 <Electronically signed by Pauline Braden > Date Pauline Braden 11/29/17 1807<Electronically signed by Henrik Caldwell MD> Cosigner Signature: Date (if applicable) Henrik Caldwell MD CC: CBC W/DIFF, AUTOMATED Collected: 11/24/2017 Status: F Source: [place] 10:42 AM [facility] REPOSITORY TYPE CODE TESTS RESULT OUT OF RANGE REFERENCE UNITS LAB L100.1000 4.4-11.0 K/mm3 Normal WBC 5.7 LAB L100.1200 4.6-6.2 M/mm3 Low RBC 4.43 LAB L100.1300 13.0-16.5 g/dl Normal HGB 13.2 LAB L100.1400 40-54 % Normal HCT 40.4 LAB L100.1500 80-94 fL Normal MCV 91.2 LAB L100.1600 27.0-32.0 pg Normal MCH 29.8 LAB L100.1700 32-36 g/gl Normal MCHC 32.7 LAB L100.1810 11.6-14.6 % Normal RDW CV 13.5 LAB L100.1820 35.1-43.9 fl High RDW SD 45.1 LAB L100.1900 150-450 K/mm3 Normal PLT 231 LAB L100.2000 6.2-12.0 fl Normal MPV 11.2 LAB L100.2100 47-70 % Normal NEUT% 55.6 LAB L100.2200 19-41 % Normal LY% 32.2 LAB L100.2300 0-10 % Normal MONO% 6.8 LAB L100.2400 0-5 % Normal EO% 4.9 LAB L100.2500 0-1 % Normal BASO% 0.3 LAB L100.2550 0.0-0.9 % Normal IM GRAN % 0.200 Result Comment: IG% - Immature Granulocytes (promyelocytes, myelocytes and metamyelocytes) > 1% indicates that a LEFT SHIFT is Present. LAB L100.2620 2.0-7.7 X10 3/uL Normal Absolute Neut 3.2 LAB L100.2720 0.83-4.51 X10 3/ul Normal Absolute Lymph 1.85 Performed By: #### L100.0100 #### [facility] [address] [place], [address] VITAMIN D,25 HYDROXY Collected: 11/24/2017 Status: F Source: [place] 10:42 AM [facility] REPOSITORY TYPE CODE TESTS RESULT OUT OF REFERENCE UNITS RANGE LAB L506.1000 29.95-100.01 ng/mL Low Vitamin D 21.1 25-OH Result Comment: Vitamin D 25(OH) Status Range Deficiency <20 ng/mL (50nmol/L) Insuffciency 20 - 30 ng/mL (50 - 75 nmol/L) Sufficiency 30 - 100 ng/mL (75 - 250 nmol/L) Toxicity >100 ng/mL (>250 nmol/L) Performed By: #### L506.1000 #### [facility] [place] [address] [place], [address] COMPREHENSIVE METABOLIC Collected: 11/24/2017 Status: F Source: [place] [facility] 10:42 AM [facility] REPOSITORY TYPE CODE TESTS RESULT OUT OF RANGE REFERENCE UNITS LAB L501.0100 74-106 mg/dL High GLU 114 Result Comment: Fasting Glucose result from 100 to 125 mg/dL suggests IMPAIRED HOMEOSTASIS per A.D.A. criteria. Please note revised GLUCOSE reference range effective 2017. LAB L501.1000 7-18 mg/dL High BUN 32 LAB L501.1100 0.70-1.30 mg/dL High CREAT,SERUM 1.81 Result Comment: The validity of the calculated GFR AND GFRAA in patients over 70 years has not been determined. Clinical correlation is essential. LAB L501.1110 >60 mL/min Low EST GFR 39 Result Comment: Non- GFR Calc LAB L501.1115 >60 mL/min Low EST GFR - AA 47 Result Comment: GFR Calc LAB L501.1300 10-20 RATIO Normal BUN/CRE 17.7 LAB L501.1500 6.4-8.2 g/dL T Normal PROT 7.5 LAB L501.1800 3.2-5.0 g/dL Normal ALB 3.4 LAB L501.1950 2.2-4.2 g/dL Normal GLOB 4.1 LAB L501.2000 0.9-2.4 RATIO Low A/G 0.8 LAB L501.2200 8.5-10.1 mg/dL CA Normal 8.8 LAB L501.4100 15-37 U/L Low AST 9 LAB L501.4305 45-117 U/L Normal ALK P 82 LAB L501.4405 16-61 U/L Normal ALT 20 LAB L501.4600 0.20-1.00 mg/dL T Normal BILI 0.40 LAB L501.5300 136-145 mmol/L NA Normal 138 LAB L501.5600 3.5-5.1 mmol/L K Normal 4.9 LAB L501.5900 98-107 mmol/L CL Normal 105 LAB L501.6100 21.0-32.0 mmol/L Normal CO2 23.0 LAB L501.6200 5-15 Normal GAP 10 Performed By: #### L500.4050, L501.9520 #### [facility] [address] [place], [address] THYROID STIM HORMONE Collected: 11/24/2017 Status: F Source: [place] (TSH) 10:42 AM [facility] REPOSITORY TYPE CODE TESTS RESULT OUT OF RANGE REFERENCE UNITS LAB L501.9520 0.358-3.74 uIU/mL Normal TSH 1.44 Performed By: #### L500.4050, L501.9520 #### [facility] [address] [place], [address] ECHOCARDIOGRAM COMPLETE Observed: 09/08/2017 Status: F Source: [place] 4:56 PM [facility] Cardiovascular Services [address] [place] [address] Echo Complete 09/08/17 1307 MR#: [id number] Acct: [id number] Name: ZORAN BYRNE Rep #: [id number] : 1940 76 From: Henrik Caldwell MD Attending Dr: Eugenio BEARDEN,Hunter Haile Status: REG CLI Ordering Dr: Hunter Becker MD Date: 09/08/17 Location: [facility] Sex: M C Admitted: Reason For Study: SOB Procedure This was a 2D Doppler, Color Flow transthoracic echocardiogram. The exam was of fair technical quality due to diminished acoustic widows. The study was technically difficult. Exam performed in department. Left Ventricle Normal LV size. Left ventricular systolic function is normal. The estimated ejection fraction is 65 %. There is evidence of diastolic dysfunction. No regional wall motion abnormalities noted. Right Ventricle Normal RV size. ICD or pacer leads identified within the right ventricle. Normal systolic function. Atria The left atrium is mildly enlarged. Normal right atrium. ICD or pacer leads identified within the right atrium. No doppler evidence for ASD. Mitral Valve There is mild mitral annular calcification. Mild diffuse mitral valve thickening. Mild focal mitral valve calcification, bileaflet. Trivial mitral valve insufficiency. Tricuspid Valve Normal tricuspid valve. Trivial tricuspid valve insufficiency. Unable to estimate RV systolic pressure/pulmonary artery pressure due to technically difficult study. Aortic Valve The bioprosthetic aortic valve apparatus is not well visualized, however, based upon the 2D echocardiographic images obtained it appears stable. Mild to moderate aortic stenosis. Pulmonic Valve The pulmonic valve is not well visualized. Great Vessels Normal sized aortic root. Pericardium/Pleural No pericardial effusion. MMode/2D Measurements AND Calculations LVIDd: 4.8 cm IVSd: 1.4 cm LVOT diam: 2.1 cm LVIDs: 2.7 cm LVPWd: 1.2 cm LVOT area: 3.5 cm2 FS: 43.4 % Ao root diam: 2.5 cm LAV(MOD-sp4): 60.6 ml LA A4 area: 20.7 cm2 LA dimension: 4.8 cm Time Measurements MV dec time: 0.28 sec Doppler Measurements AND Calculations MV E max moisés: 136.6 cm/sec Lat Peak E' Moisés: 5.7 cm/sec Med Peak E' Moisés: 5.3 cm/sec MV A max moisés: 177.1 cm/sec E/E' lat: 23.8 E/E' med: 25.8 MV E/A: 0.77 MV V2 max: 218.6 cm/sec MV P1/2t max moisés: 156.0 cm/sec Ao V2 max: 342.4 cm/sec MV max P.1 mmHg MV P1/2t: 74.2 msec Ao max P.9 mmHg MV V2 mean: 135.5 cm/sec MV dec slope: 615.5 cm/sec2 Ao V2 mean: 225.7 cm/sec MV mean P.4 mmHg MVA(P1/2t): 3.0 cm2 Ao mean P.2 mmHg MV V2 VTI: 45.2 cm Ao V2 VTI: 68.2 cm MVA(VTI): 2.4 cm2 BHAKTI(I,D): 1.6 cm2 BHAKTI(V,D): 1.4 cm2 LV V1 max: 140.1 cm/sec SV(LVOT): 108.8 ml PA V2 max: 115.6 cm/sec LV V1 max P.9 mmHg LV V1 mean P.1 mmHg LV V1 mean: 93.2 cm/sec LV V1 VTI: 31.1 cm Interpretation Summary The study was technically difficult. Left ventricular systolic function is normal. The estimated ejection fraction is 65 %. The left atrium is mildly enlarged. There is mild mitral annular calcification. Mild diffuse mitral valve thickening. Mild focal mitral valve calcification, bileaflet. Trivial mitral valve insufficiency. Trivial tricuspid valve insufficiency. The bioprosthetic aortic valve apparatus is not well visualized, however, based upon the 2D echocardiographic images obtained it appears stable. Mild to moderate aortic stenosis. Unable to estimate RV systolic pressure/pulmonary artery pressure due to technically difficult study. There is evidence of diastolic dysfunction. ICD or pacer leads identified within the right atrium ICD or pacer leads identified within the right ventricle. Ordering Physician: Hunter Becker Referring Physician: Hunter Becker Chi Performed By: Hubert Lehman RCS 09/08/171655 Date Henrik Caldwell MD CC: Hunter Becker MD Date Dictated: 09/08/17 1307 Date Transcribed: 09/08/171655 Soil Chemist: Signed ABDOMEN SINGLE VIEW Observed: 09/08/2017 Status: F Source: [place] 1:31 PM [facility] Imaging Services [address] [place] [address] Abdomen Single View MR#: [id number] Acct: [id number] Name: ZORAN BYRNE Rep #: [id number] : 1940 M 76 From: Wilmar Mitchell MD PCP: Hunter Becker MD, Chi Status: REG CLI Study: Abdomen Single View Date of Exam: 09/08/17 Exam# [id number] Ordering Dr: Hunter Becker MD STUDY: X-RAY - ABDOMEN/PELVIS REASON FOR EXAM: Male, 76 years old. Pt found out he has diverticulitis 1 week ago just finished meds today has had nausea for around 8 days history of gall bladder removal history of colon and lung cancer a couple years ago had part of his colon removed TECHNIQUE: Single AP view of the abdomen / pelvis. COMPARISON: None. FINDINGS: Normal visualized lung bases. Multiple median sternotomy wires are noted consistent for cardiac surgery. There is a moderate amount of colonic fecal material. There is no demonstrated free abdominal air. The visualized liver, spleen and kidneys are grossly normal in size and morphology. Normal soft tissue structures. There are diffuse degenerative changes of the visualized lumbar spine. RAD/Abdomen Single View IMPRESSION: Constipation. Electronically Signed: Wilmar Mitchell MD at 20:31 EDT , Service support , CC: Hunter Becker MD Soil Chemist: Signed BASIC METABOLIC Collected: 09/08/2017 Status: F Source: [place] PROFILE (BMP) 11:00 AM [facility]POS[facility] TYPE CODE TESTS RESULT OUT OF RANGE REFERENCE UNITS LAB L501.0100 74-106 mg/dL High GLU 125 Result Comment: Fasting Glucose result from 100 to 125 mg/dL suggests IMPAIRED HOMEOSTASIS per A.D.A. criteria. Please note revised GLUCOSE reference range effective 2017. LAB L501.1000 7-18 mg/dL Normal BUN 17 LAB L501.1100 0.70-1.30 mg/dL High CREAT,SERUM 1.75 Result Comment: The validity of the calculated GFR AND GFRAA in patients over 70 years has not been determined. Clinical correlation is essential. LAB L501.1110 >60 mL/min Low EST GFR 40 Result Comment: Non- GFR Calc LAB L501.1115 >60 mL/min Low EST GFR - AA 49 Result Comment: GFR Calc LAB L501.1300 10-20 RATIO Low BUN/CRE 9.7 LAB L501.2200 8.5-10.1 mg/dL Normal CA 8.9 LAB L501.5300 136-145 mmol/L Normal NA 138 LAB L501.5600 3.5-5.1 mmol/L Normal K 3.7 LAB L501.5900 98-107 mmol/L Normal CL 98 LAB L501.6100 21.0-32.0 mmol/L Normal CO2 30.0 LAB L501.6200 5-15 Normal GAP 10 Performed By: #### L500.2500 #### [facility] [address] [place], [address] PACEMAKER CHECK Observed: 09/04/2017 Status: F Source: [place] 2:41 PM [facility] [address] [place] [address] Pacemaker Check Date of Service: 08/21/17 1733 MR#: [id number] Acct: [id number] Name: ZORAN BYRNE Rep #: [id number] : 1940 From: Pauline Braden Age/Sex: 76/M Location: [facility] Status: Signed Comments Summary Comments: Remote Dual Chamber Pacemaker Evaluation: See attached scanned Latitude report. Interrogation shows 9 MS episodes, <1% total time and 5 NSVT episodes since 08/30/13. Last NSVT episode occurred on 08/15/17. E-gram shows MVT @ 172 bpm x 6 beats (AV dissociated). Last ATR episode occurred on 07/06/17. E-gram shows atrial flutter with appropriate MS. Presenting rhythm shows P synchronous paced @ 60 ppm. Estimated battery life 8 yrs. 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 Lead impedances, atrial sensing and ventricular auto pace/sense threshold remain stable. Normal remote PPM function. Pt notified remote transmission received and next f/u appt scheduled for in 3 mos. Device Device Date Interviewed: 09/04/17 Follow-up Location: remote Interview Reason: scheduled follow up Ingot Header: SpokenLayer Name: Transactiv Model: K064 DR POLLACK Serial #: [id number] Implant Date: 11/26/12 Year(s): 4 Implant Physician: Dr. Virginia Covington/ Jing Patient Characteristics Atrial Indication: Sinus bradycardia AV/Node Indication: Complete heart block Ejection fraction %: 65 to 70 (12/2016) By: Echo Underlying rhythm: Sinus rhythm Pacemaker Dependent: No Device Characteristics Device: Dual Chamber Type: Pacemaker Leads Lead #1 Ingot Header Lead 1: Guidant Model Lead 1: 4470 Serial# Lead 1: [id number] Position Lead 1: RA Lead #2 Ingot Header Lead 2: Guidant Model Lead 2: 4471 Serial# Lead 2: [id number] Date Implanted Lead 2: 11/26/12 Position Lead 2: RV Diagnostics Pacing % RA Pacin % RV Pacin Mode Switching Total # Episodes: 9 % Mode switched: 1 Arrhythmias Non-Sust Episodes: 50 Óscar Settings Óscar Settings Pacemaker Mode DDD Lower Rate Limit (bpm) 70 Hysteresis Rate (bpm) Max Track Rate (bpm) 140 Max Sensor Rate (bpm) Max AV Delay (msec) 220 Max PV Delay (msec) Max PVARP (msec) 300 Output/Sensing V/PW (ms) 2.5/0.6 auto1.3/0.4 Sensitivity RA RV LV AGC 0.25 0.6 Comments: Billing Codes PM Device Codes: PM Dev Interrogate (Remot Assessment AND Plan Problems 1. Presence of cardiac pacemaker Z95.0 2. 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 Tachycardia R00.0 4. Paroxysmal atrial tachycardia I47.1 09/04/17 1207 <Electronically signed by Pauline Braden > Date Pauline Braden 09/04/17 1441<Electronically signed by Henrik Caldwell MD> Cosigner Signature: Date (if applicable) Henrik Caldwell MD CC: BASIC METABOLIC Collected: 09/01/2017 Status: F Source: [place] PROFILE (BMP) 11:26 AM [facility] TYPE CODE TESTS RESULT OUT OF RANGE REFERENCE UNITS LAB L501.0100 74-106 mg/dL High GLU 141 Result Comment: Fasting Glucose result greater than or equal to 126 mg/dL suggests DIABETES MELLITUS per A.D.A. criteria. Please note revised GLUCOSE reference range effective 2017. LAB L501.1000 7-18 mg/dL High BUN 26 LAB L501.1100 0.70-1.30 mg/dL High CREAT,SERUM 2.09 Result Comment: The validity of the calculated GFR AND GFRAA in patients over 70 years has not been determined. Clinical correlation is essential. LAB L501.1110 >60 mL/min Low EST GFR 33 Result Comment: Non- GFR Calc LAB L501.1115 >60 mL/min Low EST GFR - AA 40 Result Comment: GFR Calc LAB L501.1300 10-20 RATIO Normal BUN/CRE 12.4 LAB L501.2200 8.5-10.1 mg/dL Low CA 8.2 LAB L501.5300 136-145 mmol/L NA Normal 136 LAB L501.5600 3.5-5.1 mmol/L K Normal 3.9 LAB L501.5900 98-107 mmol/L CL Normal 100 LAB L501.6100 21.0-32.0 mmol/L Normal CO2 27.0 LAB L501.6200 5-15 Normal GAP 9 Performed By: #### L500.2500 #### [facility] [address] [place], [address] KIDNEY AND BLADDER Observed: 09/01/2017 Status: F Source: [place] 9:30 AM [facility] Imaging Services [address] [place] [address] Kidney and Bladder MR#: [id number] Acct: [id number] Name: ZORAN BYRNE Rep #: [id number] : 1940 M 76 From: Zain Collier MD PCP: Hunter Becker MD, Chi Status: REG CLI Study: Kidney and Bladder Date of Exam: 09/01/17 Exam# [id number] Ordering Dr: Hunter Becker MD STUDY: RENAL ULTRASOUND - COMPLETE REASON FOR EXAM: Male, 76 years old. Renal failure. TECHNIQUE: Ultrasound evaluation of the kidneys was performed with real-time and static knowles-scale imaging. COMPARISON: None. FINDINGS: RIGHT KIDNEY: Normal location of the right kidney, which is normal in size. The right kidney measures 11.3 cm x 5.2 cm x 5.3 cm. There is a normal cortex of the right kidney. The renal cortex measures 1.4 cm. There is no right renal mass or cyst. There are no right renal calculi. There is no right hydronephrosis. DISTAL RIGHT URETER: There is non-visualization of the distal right ureter. There is no demonstrated right ureterovesical junction calculus. There is a visualized right ureteral jet. LEFT KIDNEY: Normal location of the left kidney, which is normal in size. The left kidney measures 10.5 cm x 5.1 cm x 4.4 cm. There is a normal cortex of the left kidney. The renal cortex measures 1.5 cm. There is no left renal mass or cyst. There are no left renal calculi. There is no left hydronephrosis. DISTAL LEFT URETER: There is non-visualization of the distal left ureter. There is no demonstrated left ureterovesical junction calculus. There is a visualized left ureteral jet. BLADDER: The distended urinary bladder has a volume of 225 ml. There is a normal wall thickness of the distended urinary bladder. There is no demonstrated mass within the urinary bladder. There are no demonstrated bladder calculi. US/Kidney and Bladder IMPRESSION: Normal ultrasound of the kidneys and urinary bladder. Electronically Signed: Zain Collier MD at 10:22 EDT Tel [phone], Service support , CC: Hunter Becker MD Soil Chemist: Signed ABDOMEN/PELVIS WITHOUT Observed: 08/31/2017 Status: F Source: [place] CONT 2:48 PM [facility] Imaging Services [address] [place] [id number] Abdomen/Pelvis without Cont MR#: [id number] Acct: [id number] Name: CHAVEZZORAN Mundo Rep #: [id number] : 1940 M 76 From: Zain Collier MD PCP: Hunter Becker MD, Chi Status: REG CLI Study: Abdomen/Pelvis without Cont Date of Exam: 08/31/17 Exam# [id number] Ordering Dr: Hunter Becker MD STUDY: CT ABDOMEN AND PELVIS WITHOUT CONTRAST REASON FOR EXAM: Male, 76 years old. Left-sided abdominal pain. The patient has a history of colon cancer and colectomy. RADIATION DOSAGE (If Supplied By Facility): CTDIvol = ( 18.13 ) mGy, DLP = ( 937.37 ) mGycm TECHNIQUE: Transaxial images were obtained from the dome of the diaphragm to the symphysis pubis without oral contrast, and without intravenous contrast. Sagittal and coronal images were reconstructed. Individualized dose optimization techniques were used for this CT. COMPARISON: None. FINDINGS: Small left pleural effusion with underlying atelectasis and/or scarring. Chronic changes at the right lung base. Coronary artery calcification. Normal liver. The patient is status post cholecystectomy. Normal spleen. Normal pancreas. Normal bilateral adrenal glands. Normal right kidney. Normal left kidney. Nonspecific bilateral perinephric stranding. Normal visualized stomach. Normal small intestine. There are multiple colonic diverticula consistent with diverticulosis. There is evidence of prior right hemicolectomy. The patient is status post appendectomy. There is diffuse atherosclerotic calcification of the abdominal aorta and its major visceral branches, without a demonstrated aneurysm. Normal inferior vena cava. Normal retroperitoneum. Normal urinary bladder. Normal abdominal wall. There are degenerative changes of the visualized lumbar spine. 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 CT/Abdomen/Pelvis without Cont IMPRESSION: Sigmoid diverticulosis. Electronically Signed: Zain Collier MD at 15:19 EDT Tel [phone], Service support , CC: Hunter Becker MD Soil Chemist: Signed CBC W/DIFF, AUTOMATED Collected: 08/31/2017 Status: F Source: [place] 12:14 PM [facility] TYPE CODE TESTS RESULT OUT OF RANGE REFERENCE UNITS LAB L100.1000 4.4-11.0 K/mm3 Normal WBC 8.0 LAB L100.1200 4.6-6.2 M/mm3 Normal RBC 4.92 LAB L100.1300 13.0-16.5 g/dl Normal HGB 15.2 LAB L100.1400 40-54 % Normal HCT 44.8 LAB L100.1500 80-94 fL Normal MCV 91.1 LAB L100.1600 27.0-32.0 pg Normal MCH 30.9 LAB L100.1700 32-36 g/gl Normal MCHC 33.9 LAB L100.1810 11.6-14.6 % Normal RDW CV 12.9 LAB L100.1820 35.1-43.9 fl Normal RDW SD 43.0 LAB L100.1900 150-450 K/mm3 Normal PLT 212 LAB L100.2000 6.2-12.0 fl Normal MPV 10.7 LAB L100.2100 47-70 % High NEUT% 70.9 LAB L100.2200 19-41 % Normal LY% 20.8 LAB L100.2300 0-10 % Normal MONO% 7.8 LAB L100.2400 0-5 % Normal EO% 0.3 LAB L100.2500 0-1 % Normal BASO% 0.1 LAB L100.2550 0.0-0.9 % Normal IM GRAN % 0.100 Result Comment: IG% - Immature Granulocytes (promyelocytes, myelocytes and metamyelocytes) > 1% indicates that a LEFT SHIFT is Present. LAB L100.2620 2.0-7.7 X10 3/uL Normal Absolute Neut 5.7 LAB L100.2720 0.83-4.51 X10 3/ul Normal Absolute Lymph 1.66 Performed By: #### L100.0100 #### [facility] [address] [place], [address] COMPREHENSIVE METABOLIC Collected: 08/31/2017 Status: F Source: [facility] 12:14 PM [facility] TYPE CODE TESTS RESULT OUT OF RANGE REFERENCE UNITS LAB L501.0100 74-106 mg/dL High GLU 120 Result Comment: Fasting Glucose result from 100 to 125 mg/dL suggests IMPAIRED HOMEOSTASIS per A.D.A. criteria. Please note revised GLUCOSE reference range effective 2017. LAB L501.1000 7-18 mg/dL High BUN 21 LAB L501.1100 0.70-1.30 mg/dL High CREAT,SERUM 2.03 Result Comment: The validity of the calculated GFR AND GFRAA in patients over 70 years has not been determined. Clinical correlation is essential. LAB L501.1110 >60 mL/min Low EST GFR 34 Result Comment: Non- GFR Calc LAB L501.1115 >60 mL/min Low EST GFR - AA 41 Result Comment: GFR Calc LAB L501.1300 10-20 RATIO Normal BUN/CRE 10.3 LAB L501.1500 6.4-8.2 g/dL T Normal PROT 8.0 LAB L501.1800 3.2-5.0 g/dL Normal ALB 3.4 LAB L501.1950 2.2-4.2 g/dL High GLOB 4.6 LAB L501.2000 0.9-2.4 RATIO Low A/G 0.7 LAB L501.2200 8.5-10.1 mg/dL CA Normal 8.8 LAB L501.4100 15-37 U/L Low AST 9 LAB L501.4305 45-117 U/L Normal ALK P 80 LAB L501.4405 16-61 U/L Normal ALT 18 LAB L501.4600 0.20-1.00 mg/dL T Normal BILI 0.60 LAB L501.5300 136-145 mmol/L NA Normal 136 LAB L501.5600 3.5-5.1 mmol/L K Normal 4.4 LAB L501.5900 98-107 mmol/L CL Normal 100 LAB L501.6100 21.0-32.0 mmol/L Normal CO2 25.0 LAB L501.6200 5-15 Normal GAP 11 Performed By: #### L500.4050 #### [facility] [address] [place], [place], [address] CARDIOLOGY VISIT Observed: 08/23/2017 Status: F Source: [place] REPORT 5:04 PM [facility] 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 From a cardiac standpoint he states overall he is done reasonably well with respect and not having classic angina pectoris and not using nitroglycerin sublingual. There has been no issues with respect to ongoing acute CHF or pulmonary edema. There has been no near syncope or syncope. There is been no unexplained fevers, chills, or night sweats. He states he does note that he has gained weight. He is also chronically short of breath. He recently had a chest CT scan performed. On his chest CT scan, that was done for noncardiac reasons, a concern was raised about a possible left atrial appendage thrombus. Thus he underwent evaluation with a transesophageal echocardiogram. There was no obvious intracardiac mass lesion/thrombus identified. Intake Vital Signs08/23/17 Height 5 ft 8 in 08/23/17 Weight: 199 lb 08/23/17 Body Mass Index (BMI) 30.2 08/23/17 Blood Pressure 128/58 Intake Visit Reasons: 6 M FU Allergies No Known Allergies Allergy (Verified 08/23/17 15:27) Medications Doxycycline [Vibramycin] 1 tab PO DAILY 12/31/12 [History Confirmed 08/23/17] Nitroglycerin [Nitrolingual Holstein] 0.4 mg SL PRN PRN 12/31/12 [History Confirmed 08/23/17] Aspirin E.C. [Ecotrin] 81 mg PO DAILY@0800 01/21/16 [History Confirmed 08/23/17] Cilostazol [Pletal] 100 mg PO DAILY 01/21/16 [History Confirmed 08/23/17] pravastatin 80 mg tablet 80 mg PO QHS #90 tab 05/22/17 [Rx Confirmed 08/23/17] metoprolol tartrate 50 mg tablet 50 mg PO BID #180 tab 06/21/17 [Rx Confirmed 08/23/17] ramipril 5 mg capsule 5 mg PO DAILY #90 cap 07/26/17 [Rx Confirmed 08/23/17] metformin 500 mg tablet 500 mg PO BID 08/23/17 [History Confirmed 08/23/17] [facility] Medical History Presence of stent in coronary artery (Chronic) Atherosclerosis of coronary artery bypass graft without angina pectoris (Chronic) Hyperlipidemia (Chronic) Hypertension (Chronic) Paroxysmal atrial tachycardia (Acute) Tachycardia (Acute) Nonrheumatic aortic valve disorder (Acute) Intermittent claudication (Acute) Carotid bruit (Acute) Left atrial mass (Acute) AV block, 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) Presence of cardiac pacemaker (Chronic) PAD (peripheral artery disease) (Acute) Surgical History H/O aortic valve replacement (Chronic 03/31/06) S/P insertion of iliac artery stent (Chronic) Aortocoronary bypass status (Chronic 03/31/06) Postsurgical percutaneous transluminal coronary angioplasty (PTCA) status (Chronic) History of cholecystectomy (Resolved) History of lobectomy of lung (Resolved) History of right hemicolectomy (Resolved) Family History Mother Diabetes Social History Smoking Status: Former smoker ROS Const Const: Positive for fatigue (tired all of the time); negative for weakness, weight gain, weight loss, frequent falls or excessive sweating Eyes Eyes: Negative for change in vision, blurry vision or transient loss of vision ENT ENT: Negative for dizziness or balance problems Cardio Chest Pain: No Palpitations: No Edema: None Muscle aches with walking: Bilateral (cramping while ambulating) Resp Respiratory: Positive for SOB with activity (increased); negative for SOB at rest Additional Details: Patient notes occasional pain in chest with deep breaths GI GI: Negative vomiting or vomiting blood/hematemesis : Negative for hematuria Musc Musc: Negative for balance problems, muscle aches/ myalgia, muscle weakness or joint pain Skin Skin: Negative non-healing lesions or rash Neuro Neuro: Negative for weakness, blurry vision, dizziness, lightheadedness, frequent falls or orthostatic symptoms Eddie Hematologic/Lymphatic: Negative for easy bleeding Endo Endo: Positive for fatigue (tired all of the time); negative for excessive sweating Psych Psych: Negative for anxiety or depression Allergy Allergy/Immunology: Negative for hives, Negative for rash Cardiology Exam Const Appearance: cooperative, healthy appearing, comfortable, well developed and well groomed Nutritional Appearance: overweight Orientation: alert, awake and oriented x3 Head Head: normal to inspection, normocephalic and atraumatic Ears: hearing grossly normal bilaterally Nose: external nose normal Face and Sinus: face symmetric Mouth: oral mucosae normal Eyes Eyelids: eyelids normal Conjunctivae: conjunctivae normal Pupils: PERRL EOM: EOM intact bilaterally Neck Neck: normal visual inspection and full ROM Carotids: bruit Chest Chest inspection: normal inspection of the chest and symmetric chest movement Auscultation: Bilateral: Clear to Auscultation Cardio Palpation: normal PMI Rate: regular rate Rhythm: regular rhythm Heart sounds: S1 normal and S2 normal Murmur: Grade 3/6, harsh, mid systolic, LLSB, LVOT and sternal notch GI GI: normal to inspection, soft, no hepatosplenomegaly and bowel sounds present Neuro General: alert, awake, oriented x3 and moves all extremities Skin Skin: no rashes or lesions noted Extremities Pulses: Normal: Right Radial Pulse, Left Radial Pulse Lower Extremity Edema: None: Bilateral Psych Psychological: normal affect Supplemental Info He had a transthoracic echocardiogram performed on 06/16/2017. The results are as noted below. Interpretation Summary The study was technically difficult. Left ventricular systolic function is normal. The estimated ejection fraction is 60 %. The left atrium is mildly enlarged. There is mild mitral annular calcification. Mild diffuse mitral valve thickening. Mild focal mitral valve calcification, bileaflet. Mild mitral valve prolapse. Trivial mitral valve insufficiency. Trivial tricuspid valve insufficiency. The bioprosthetic aortic valve apparatus is not well visualized, however, based upon the 2D echocardiographic images obtained it appears stable. Mild to moderate aortic stenosis. Trivial pulmonic valve insufficiency. Calcified aortic root. ICD or pacer leads identified within the right atrium ICD or pacer leads identified within the right ventricle. Transmitral diastolic flow velocities suggest diastolic dysfunction. 2D echocardiographic images obtained demonstrate a vague echodensity in the left atrium (approximately 1.0 cm x 1.5 cm) of uncertain etiology potentially c/w echocardiographic artifact, however, other etiologies cannot be excluded. Consider further evaluation with ELIJAH if clinically indicated. He had a transesophageal echocardiogram performed on 07/18/2017. The results are as noted below. Interpretation Summary Left ventricular systolic function is normal. The estimated ejection fraction is 65 %. The left atrium is mildly enlarged. There is no sponatenous contrast in the left atrium. No thrombus is detected in the left atrial appendage. There is mild mitral annular calcification. Mild diffuse mitral valve thickening. Mild focal mitral valve calcification, bileaflet. Mild-Moderate (1-2+) mitral valve insufficiency. Trivial tricuspid valve insufficiency. Stable appearing bioprosthetic aortic valve apparatus. Bubble contrast study negative for right to left interatrial shunt. Moderate atherosclerosis of the descending aorta. ICD or pacer leads identified within the right atrium ICD or pacer leads identified within the right ventricle. 2D echocardiographic images appearing c/w a prominent Ridge of Warfarin. Comment: C/W the previous ELIJAH of 01/08/2013 there are similar type findings. He had a pharmacologic stress nuclear imaging study performed on 01/06/2017. The results are as noted below. Impression: 1. Rest and stress SPECT Cardiolite nuclear imaging demonstrating myocardial perfusion appearing within normal limits. 2. The gated Cardiolite study reports an LVEF of 74%. He did have a diagnostic cardiac catheterization performed on 01/01/2013. The results are as noted below. Final impression: 1. Relatively normal resting left ventricular end-diastolic pressure 2. Borderline elevation of the intrapulmonary and right heart pressures 3. Oxygen saturations: No obvious evidence of intracardiac shunting phenomenon 4. Left ventricle: A. Normal left ventricle size, wall motion, and systolic function B. Estimated LVEF of 65% 5, Left Main coronary artery: A. Large long vessel B. Diffuse minimal luminal irregularities 6. Left anterior descending coronary artery: A. Proximal linear septal bindery operator, 75% hazy appearing stenosis 7. Left circumflex coronary artery: A. Ostial 50% appearing stenosis B. Pre-OM branch: 75% appearing stenosis C. CM branch #1: Mid 75% appearing stenosis D. CM branch #2: After the takeoff of OM1: Ostial/proximal 95% appearing stenosis 8. Immediate ramus coronary: A. Diffuse minimal luminal irregularities 9. Right coronary artery: A. Large dominant vessel B. Proximal 100% occluded C. Right PDA, right AV segment, and right posterior lateral branch filling from the SVG graft with no angiographically significant appearing disease distal to the graft attachment 10. UMANZOR to the LAD: A. Small atretic nonfunctional vessel 11. SVG to the LCx system (sequential graft): A. Proximally 100% occluded 12. SVG to the RCA system: A. Patent without angiographically significant appearing disease 13. Aortic valve: A. Restrictive/stenotic with a peak to peak gradient of 17 mmHg, a mean gradient of 21 mmHg, and an aortic valve area of 1.6 in meter squared compatible with mild-moderate aortic valve stenosis B. Trace aortic valve insufficiency 14, Aortic root: A. Calcified 15: Mitral valve annulus: A. Calcified 16: Mitral valve: A. Trace mitral valve regurgitation His previous PTCA/stent report was performed at [facility] on 04/10/2002. At that point in time he received a PTCA/stent to the mid RCA. His previous CABG x 4 was performed at [facility] on 03/31/2006. At that time he received a UMANZOR to the LAD, and SVG to the high lateral and lateral circumflex arteries and the posterior descending coronary artery of the RCA system as well as an aortic valve replacement with a Saint Live Biocor tissue valve #21 mm. He does have a Unbounceio model number [id number] serial #[id number] dual-chamber pacemaker implanted on 11/26/2012. Assessment AND Plan 1. 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 It was not felt he had any acute cardiovascular issues or concerns. He will continue risk factor modification and medical management. 2. Presence of stent in coronary artery Z95.5 PTCA/stent of the mid RCA 04/10/02 Plan He does have a history of previous PCI as noted above. Again he appears to be without any acute issues. He will continue medical therapy and follow-up. 3. H/O aortic valve replacement Z95.2 St. Live Bicor tissue valve 21mm 03/31/06 Plan His aortic valve is been assessed. It appears to be stable. He will continue AHA antibiotic prophylaxis. 4. 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 He is status post permanent pacemaker placement. 5. Presence of cardiac pacemaker Z95.0 Plan His pacemaker is being followed. It has been functioning appropriately. 6. Bilateral carotid bruits R09.89 Plan He does have a history of carotid artery disease. He has been evaluated with carotid artery duplex study in the past. He is going to continue to follow with peripheral vascular surgery. Plan Detail Additional Comments Overall, the present time, was not felt he required further adjustment of his medication. It was not felt he required additional cardiac diagnostic studies or therapeutic intervention. He will need continued outpatient follow-up. He was asked to follow with his primary care physician with respect to any additional follow-up of his history of lung carcinoma status post left upper lobe lobectomy, etc. Thank you for allowing me to participate in the care of your patient. Please don't hesitate to call if any issues arise. This note was generated using a voice recognition system and there may be incorrect words, spelling or punctuation that were not noted when reviewing the office note prior to saving. Follow Up 6 Months (PFM) Coding Level of Care Code Off vis,est,level 3 Diagnoses Atherosclerosis of coronary artery bypass graft of [place] heart without angina pectoris I25.810 [place] vs. 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 transplanted heart: [place] heart Presence of stent in coronary artery Z95.5 H/O aortic valve replacement Z95.2 Complete AV block I44.2 Presence of cardiac pacemaker Z95.0 Bilateral carotid bruits R09.89 Laterality: bilateral 08/23/17 1704 <Electronically signed by Henrik Caldwell MD> Date Henrik Caldwell MD Cosigner Signature: Date (if applicable) CC: Hunter Becker MD HISTORY AND PHYSICAL Observed: 07/18/2017 Status: F Source: [place] EXAM 1:08 PM [facility] RE[facility]IT[facility] Medical Records Department [address] [place] [address] History and Physical 07/18/17 1304 MR#: [id number] Acct: [id number] Name: ZORAN BYRNE Rep #: [id number] : 1940 76 From: Henrik Caldwell MD PCP: Hunter Becker MD, Chi Status: REG CLI Y Location: CVS Problem List (1) Left atrial mass Status: Acute History and Physical Date of Admission: 07/18/17 Date: 07/18/2017 Pre-transesophageal echocardiogram H AND P update/addendum For history of present illness, past medical history, family history, social history, review of systems, physical examination, impression and plan, please see previously dictated outpatient history of present illness. The patient has undergone noncardiovascular evaluation. He had a chest CT scan performed on 05/23/2017. Per the radiology report there was concerns of an underlying left atrium filling defect concerning for thrombus. The patient subsequently underwent a thoracic echocardiogram. Based upon the transthoracic echocardiographic images a left atrial echodensity could not be excluded. Thus the patient has been referred for further evaluation with transesophageal echocardiogram to evaluate for any obvious intracardiac mass lesion/thrombus, etc. The procedure and risks have been discussed with the patient and he was agreeable to this approach. This procedure is scheduled for [facility] on 07/18/2017. 07/18/17 1308 <Electronically signed by Henrik Caldwell MD> Date Henrik Caldwell MD Cosigner Signature: Date (if applicable) CC: Henrik Calwdell MD; Hunter Becker MD Signed ECHO TRANSESOPHAGEAL (ELIJAH) Observed: 07/18/2017 Status: F Source: [place] 1:02 PM [facility] Cardiovascular Services [address] [place] [address] Echo Transesophageal (ELIJAH) 07/18/17 1047 MR#: [id number] Acct: [id number] Name: ZORAN BYRNE Rep #: [id number] : 1940 76 From: Henrik Caldwell MD Attending Dr: Henrik Caldwell MD Status: REG CLI Ordering Dr: Henrik Caldwell MD Date: 07/18/17 Location: CVS Sex: M C Admitted: Reason For Study: ATRIAL THROMBUS Medication ELIJAH probe passed with minimal difficulty. No complications were noted. Cetacaine Topical Holstein given X3 orally. Versed 2 mg given slow IVP. Fentanyl 100 mcg given slow IVP. Performed a rapid injection of agitated mix of 9 cc saline and 1cc air to assess for atrial septal defect. Left Ventricle Normal LV size. Left ventricular systolic function is normal. The estimated ejection fraction is 65 %. No regional wall motion abnormalities noted. Right Ventricle Normal RV size. ICD or pacer leads identified within the right ventricle. Normal systolic function. Atria No doppler evidence for ASD. Bubble contrast study negative for right to left interatrial shunt. The left atrium is mildly enlarged. There is no sponatenous contrast in the left atrium. No thrombus is detected in the left atrial appendage. Normal right atrium. There is no sponatenous contrast in the right atrium. No RA / appendage thrombus identified. ICD or pacer leads identified within the right atrium. Mitral Valve There is mild mitral annular calcification. Mild diffuse mitral valve thickening. Mild focal mitral valve calcification, bileaflet. Mild-Moderate (1-2+) mitral valve insufficiency. Tricuspid Valve Normal tricuspid valve. Trivial tricuspid valve insufficiency. Aortic Valve Stable appearing bioprosthetic aortic valve apparatus. Pulmonic Valve The pulmonic valve is not well visualized. Vessels Moderate atherosclerosis of the descending aorta. Pericardium No pericardial effusion. Interpretation Summary Left ventricular systolic function is normal. The estimated ejection fraction is 65 %. The left atrium is mildly enlarged. There is no sponatenous contrast in the left atrium. No thrombus is detected in the left atrial appendage. There is mild mitral annular calcification. Mild diffuse mitral valve thickening. Mild focal mitral valve calcification, bileaflet. Mild-Moderate (1-2+) mitral valve insufficiency. Trivial tricuspid valve insufficiency. Stable appearing bioprosthetic aortic valve apparatus. Bubble contrast study negative for right to left interatrial shunt. Moderate atherosclerosis of the descending aorta. ICD or pacer leads identified within the right atrium ICD or pacer leads identified within the right ventricle. 2D echocardiographic images appearing c/w a prominent Ridge of Warfarin. Comment: C/W the previous ELIJAH of 01/08/2013 there are similar type findings. Ordering Physician: Henrik Caldwell Referring Physician: Hunter Becker Chi Performed By: Cassandra Hoover RDCS, RVT 07/18/17 1302 Date Henrik Caldwell MD CC: Henrik Caldwell MD; Hunter Becker MD Date Dictated: 07/18/17 1047 Date Transcribed: 07/18/17 1302 Soil Chemist: Signed ECHOCARDIOGRAM COMPLETE Observed: 06/16/2017 Status: F Source: [place] 2:14 PM [facility] Cardiovascular Services [address] [place] [id number] Echo Complete 06/16/17 0909 MR#: [id number] Acct: [id number] Name: ZORAN BYRNE Rep #: [id number] : 1940 76 From: Henrik Caldwell MD Attending Dr: Hunter Becker MD, Chi Status: REG CLI Ordering Dr: Hunter Becker MD Date: 06/16/17 Location: [facility] Sex: M C Admitted: Reason For Study: Assess LA for thrombus Procedure This was a 2D Doppler, Color Flow transthoracic echocardiogram. The exam was of fair technical quality due to diminished acoustic windows. The study was technically difficult. Exam performed in department. Left Ventricle Normal LV size. Left ventricular systolic function is normal. The estimated ejection fraction is 60 %. No regional wall motion abnormalities noted. Right Ventricle Normal RV size. ICD or pacer leads identified within the right ventricle. Normal systolic function. Atria The left atrium is mildly enlarged. Normal right atrium. ICD or pacer leads identified within the right atrium. No doppler evidence for ASD. Mitral Valve There is mild mitral annular calcification. Mild diffuse mitral valve thickening. Mild focal mitral valve calcification, bileaflet. Mild mitral valve prolapse. Trivial mitral valve insufficiency. Tricuspid Valve Normal tricuspid valve. Trivial tricuspid valve insufficiency. Aortic Valve The bioprosthetic aortic valve apparatus is not well visualized, however, based upon the 2D echocardiographic images obtained it appears stable. Mild to moderate aortic stenosis. Pulmonic Valve The pulmonic valve is not well visualized. Trivial pulmonic valve insufficiency. Great Vessels Normal sized aortic root. Calcified aortic root. Pericardium/Pleural No pericardial effusion. MMode/2D Measurements AND Calculations LVIDd: 4.2 cm IVSd: 1.3 cm LVOT diam: 2.1 cm LVIDs: 2.9 cm LVPWd: 1.2 cm LVOT area: 3.3 cm2 FS: 30.6 % Ao root diam: 3.2 cm Doppler Measurements AND Calculations MV E max moisés: 102.9 cm/sec Lat Peak E' Moisés: 4.8 cm/sec Med Peak E' Moisés: 3.2 cm/sec MV A max moisés: 161.9 cm/sec E/E' lat: 21.5 E/E' med: 32.5 MV E/A: 0.64 MV V2 max: 175.0 cm/sec Ao V2 max: 310.2 cm/sec LV V1 max: 139.6 cm/sec MV max P.3 mmHg Ao max P.5 mmHg LV V1 max P.8 mmHg MV V2 mean: 103.8 cm/sec Ao V2 mean: 217.5 cm/sec LV V1 mean P.8 mmHg MV mean P.8 mmHg Ao mean P.6 mmHg LV V1 mean: 104.3 cm/sec MV V2 VTI: 41.0 cm Ao V2 VTI: 70.7 cm LV V1 VTI: 32.7 cm MVA(VTI): 2.7 cm2 BHAKTI(I,D): 1.5 cm2 BHAKTI(V,D): 1.5 cm2 SV(LVOT): 109.3 ml PA V2 max: 79.1 cm/sec Interpretation Summary The study was technically difficult. Left ventricular systolic function is normal. The estimated ejection fraction is 60 %. The left atrium is mildly enlarged. There is mild mitral annular calcification. Mild diffuse mitral valve thickening. Mild focal mitral valve calcification, bileaflet. Mild mitral valve prolapse. Trivial mitral valve insufficiency. Trivial tricuspid valve insufficiency. The bioprosthetic aortic valve apparatus is not well visualized, however, based upon the 2D echocardiographic images obtained it appears stable. Mild to moderate aortic stenosis. Trivial pulmonic valve insufficiency. Calcified aortic root. ICD or pacer leads identified within the right atrium ICD or pacer leads identified within the right ventricle. Transmitral diastolic flow velocities suggest diastolic dysfunction. 2D echocardiographic images obtained demonstrate a vague echodensity in the left atrium (approximately 1.0 cm x 1.5 cm) of uncertain etiology potentially c/w echocardiographic artifact, however, other etiologies cannot be excluded. Consider further evaluation with ELIJAH if clinically indicated. Ordering Physician: Hunter Becker Referring Physician: Hunter Becker Chi Performed By: Sulema Gongora RDCS 06/16/17 1414 Date Henrik Caldwell MD CC: Hunter Becker MD Date Dictated: 06/16/1709 Date Transcribed: 06/16/17 141 Soil Chemist: Signed PACEMAKER CHECK Observed: 06/14/2017 Status: F Source: [place] 11:16 AM [facility] REPOS[facility] [address] [place] [address] Pacemaker Check Date of Service: 05/22/17 114 MR#: [id number] Acct: [id number] Name: ZORAN BYRNE Rep #: [id number] : 1940 From: Pauline Braden Age/Sex: 76/M Location: [facility] Status: Signed Comments Summary Comments: Remote Dual Chamber Pacemaker Evaluation: Remote interrogation shows 8 MS episodes, <1% total time and 47 NSVT episodes since 08/30/13. Stored e-gram on 05/19/17 shows MVT @ 150 bpm (AV dissociated) x 14 beats. Only 1 NSVT episode since last remote check in February. Presenting rhythm shows P synchronous paced @ 70 ppm. 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 Battery longevity approx 8 years. Lead impedances, atrial sensing and ventricular auto pace/sense threshold remain stable. Normal remote PPM function. Pt notified remote transmission received and next f/u appt scheduled for in 3 mos. Device Device Date Interviewed: 05/22/17 Follow-up Location: remote Interview Reason: scheduled follow up Ingot Header: SpokenLayer Name: Transactiv Model: K064 DR POLLACK Serial #: [id number] Implant Date: 11/26/12 Year(s): 4 Implant Physician: Dr. Virginia Covington/ Jing Patient Characteristics Atrial Indication: Sinus bradycardia AV/Node Indication: Complete heart block Ejection fraction %: 65 to 70 (12/2016) By: Echo Underlying rhythm: Sinus rhythm Pacemaker Dependent: No Device Characteristics Device: Dual Chamber Type: Pacemaker Remote Follow-Up: Latitude Leads Lead #1 Ingot Header Lead 1: Guidant Model Lead 1: [id number] Serial# Lead 1: [id number] Date Implanted Lead 1: 11/26/12 Position Lead 1: RA Lead #2 Ingot Header Lead 2: Guidant Model Lead 2: 4471 Serial# Lead 2: [id number] Date Implanted Lead 2: 11/26/12 Position Lead 2: RV Diagnostics Pacing % RA Pacin % RV Pacin Mode Switching Total # Episodes: 8 % Mode switched: 1 Arrhythmias Non-Sust Episodes: 47 Measurements Battery Magnet Rate (bmp): 100 Battery Status: JESUS ALBERTO Predicted Remaining Longevity (months or years): 8 years RA Measurements Signal Amplitude (mV): 7.7 Impedance (Ohms): 339 RV Measurements Impedance (Ohms): 409 Threshold Voltage: 0.9 @ PW(ms): 0.4 Óscar Settings Óscar Settings Pacemaker Mode DDD Lower Rate Limit (bpm) 70 Hysteresis Rate (bpm) Max Track Rate (bpm) 140 Max Sensor Rate (bpm) Max AV Delay (msec) 220 Max PV Delay (msec) Max PVARP (msec) 300 Output/Sensing V/PW (ms) 2.5/0.6 auto1.3/0.4 Sensitivity RA RV LV AGC 0.25 0.6 Comments: Billing Codes PM Device Codes: PM Dev Prog Eval, Dual Assessment AND Plan Problems 1. Presence of cardiac pacemaker Z95.0 2. AV block, 3rd degree I44.2 06/06/17 1949 <Electronically signed by Pauline Braden > Date Pauline Braden 06/14/17 1116<Electronically signed by Henrik Caldwell MD> [facility] Signature: Date (if applicable) Henrik Caldwell MD CC: CHEST WITH CONTRAST Observed: 05/23/2017 Status: F Source: [place] 2:12 PM [facility] Imaging Services [address] [place] [address] Chest WITH Contrast MR#: [id number] Acct: [id number] Name: ZORAN BYRNE Rep #: [id number] : 1940 M 76 From: Zain Collier MD PCP: Hunter Becker MD, Chi Status: REG CLI Study: Chest WITH Contrast Date of Exam: 05/23/17 Exam# [id number] Ordering Dr: Hunter Becker MD STUDY: CT CHEST WITH CONTRAST REASON FOR EXAM: Male, 76 years old. Shortness of breath. History of lung cancer with a left upper lobe resection. History of colon cancer as well. RADIATION DOSAGE (If Supplied By Facility): CTDIvol = ( 16.42 ) mGy, DLP = ( 588.32 ) mGycm TECHNIQUE: Transaxial imaging was performed following intravenous administration of 100 ml of Isovue 300 contrast material. Multiplanar coronal and sagittal images were reformatted. Individualized dose optimization techniques were used for this CT. COMPARISON: Comparison is made with prior examination dated October 20, 2015. FINDINGS: A left-sided portacatheter is seen. Small bilateral axillary lymph nodes. The previously seen left upper lobe spiculated nodule has been removed. There is evidence of postoperative changes with volume loss in the left upper lobe 8 with prior lobectomy. There is evidence of a small left pleural effusion with left basilar atelectasis. Emphysematous changes are seen in the lungs more prominent in the right lung. Sternal cerclage wires and vascular clips are present from a prior sternotomy and coronary artery bypass graft procedure (CABG). There are calcifications of the coronary arteries. There is a 1.3 cm x 0.8 cm filling defect in the left atrium just proximal to the insertion of the left inferior pulmonary venous return. There are multiple small lymph nodes within the mediastinum, which are normal in size and morphology most compatible with reactive lymph hyperplasia. Normal hilar regions. Normal enhanced pulmonary arteries. There is atherosclerotic calcification of the aortic arch arch and descending thoracic aorta. There are multi-level degenerative changes of the thoracic spine. There is no demonstrated abnormality of the visualized upper abdomen. CT/Chest WITH Contrast IMPRESSION: Status post left upper lobectomy with resection. Small left pleural effusion with underlying atelectasis at the left lung base. Filling defect in the left atrium as described. This most likely represents a thrombus. Electronically Signed: Zain Collier MD at 15:29 EDT Tel [phone], Service support , CC: Hunter Becker MD Soil Chemist: Signed CBC W/DIFF, AUTOMATED Collected: 05/23/2017 Status: F Source: [place] 1:55 PM [facility] REPOS[facility] TYPE CODE TESTS RESULT OUT OF RANGE REFERENCE UNITS LAB L100.1000 4.4-11.0 K/mm3 Normal WBC 5.9 LAB L100.1200 4.6-6.2 M/mm3 Low RBC 4.57 LAB L100.1300 13.0-16.5 g/dl Normal HGB 14.2 LAB L100.1400 40-54 % Normal HCT 43.0 LAB L100.1500 80-94 fL High MCV 94.1 LAB L100.1600 27.0-32.0 pg Normal MCH 31.1 LAB L100.1700 32-36 g/gl Normal MCHC 33.0 LAB L100.1810 11.6-14.6 % Normal RDW CV 13.3 LAB L100.1820 35.1-43.9 fl High RDW SD 45.8 LAB L100.1900 150-450 K/mm3 Normal PLT 246 LAB L100.2000 6.2-12.0 fl Normal MPV 11.0 LAB L100.2100 47-70 % Normal NEUT% 52.4 LAB L100.2200 19-41 % Normal LY% 36.0 LAB L100.2300 0-10 % Normal MONO% 7.4 LAB L100.2400 0-5 % Normal EO% 3.7 LAB L100.2500 0-1 % Normal BASO% 0.3 LAB L100.2550 0.0-0.9 % Normal IM GRAN % 0.200 Result Comment: IG% - Immature Granulocytes (promyelocytes, myelocytes and metamyelocytes) > 1% indicates that a LEFT SHIFT is Present. LAB L100.2620 2.0-7.7 X10 3/uL Normal Absolute Neut 3.1 LAB L100.2720 0.83-4.51 X10 3/ul Normal Absolute Lymph 2.14 Performed By: #### L100.0100 #### [facility] [place], [address] COMPREHENSIVE METABOLIC Collected: 05/23/2017 Status: F Source: [place] [facility] 1:55 PM [facility] REPOS[facility] TYPE CODE TESTS RESULT OUT OF RANGE REFERENCE UNITS LAB L501.0100 74-106 mg/dL Normal GLU 102 Result Comment: Fasting Glucose result from 100 to 125 mg/dL suggests IMPAIRED HOMEOSTASIS per A.D.A. criteria. Please note revised GLUCOSE reference range effective 2017. LAB L501.1000 7-18 mg/dL Normal BUN 18 LAB L501.1100 0.70-1.30 mg/dL Normal CREAT,SERUM 1.13 Result Comment: The validity of the calculated GFR AND GFRAA in patients over 70 years has not been determined. Clinical correlation is essential. LAB L501.1110 >60 mL/min Normal EST GFR 67 Result Comment: Non- GFR Calc LAB L501.1115 >60 mL/min Normal EST GFR - AA 81 Result Comment: GFR Calc LAB L501.1300 10-20 RATIO Normal BUN/CRE 15.9 LAB L501.1500 6.4-8.2 g/dL T Normal PROT 7.8 LAB L501.1800 3.2-5.0 g/dL Normal ALB 3.6 LAB L501.1950 2.2-4.2 g/dL Normal GLOB 4.2 LAB L501.2000 0.9-2.4 RATIO Normal A/G 0.9 LAB L501.2200 8.5-10.1 mg/dL CA Normal 8.9 LAB L501.4100 15-37 U/L Low AST 11 LAB L501.4305 45-117 U/L Normal ALK P 83 LAB L501.4405 16-61 U/L Normal ALT 22 Result Comment: Please note revised ALT reference range effective 2017. LAB L501.4600 0.20-1.00 mg/dL Normal T BILI 0.50 LAB L501.5300 136-145 mmol/L Normal NA 139 LAB L501.5600 3.5-5.1 mmol/L Normal K 4.5 LAB L501.5900 98-107 mmol/L Normal CL 106 LAB L501.6100 21.0-32.0 mmol/L Normal CO2 28.0 LAB L501.6200 5-15 Normal GAP 5 Performed By: #### L500.4050, L501.9520 #### [facility] [address] [place], [address] THYROID STIM HORMONE Collected: 05/23/2017 Status: F Source: [place] (TSH) 1:55 PM [facility] REPOSITORY TYPE CODE TESTS RESULT OUT OF RANGE REFERENCE UNITS LAB L501.9520 0.358-3.74 uIU/mL Normal TSH 0.90 Performed By: #### L500.4050, L501.9520 #### [facility] [address] [place], [place], [address] VITAMIN D,25 HYDROXY Collected: 05/23/2017 Status: F Source: [place] 1:55 PM [facility] REPOSITORY TYPE CODE TESTS RESULT OUT OF REFERENCE UNITS RANGE LAB L506.1000 29.95-100.01 ng/mL Low Vitamin D 29.9 25-OH Result Comment: Vitamin D 25(OH) Status Range Deficiency <20 ng/mL (50nmol/L) Insuffciency 20 - 30 ng/mL (50 - 75 nmol/L) Sufficiency 30 - 100 ng/mL (75 - 250 nmol/L) Toxicity >100 ng/mL (>250 nmol/L) Performed By: #### L506.1000 #### [facility] [address] [place], [place], [address] ABD AORTIC/IVC DUPLEX Observed: 04/28/2017 Status: F Source: [place] SCAN 2:44 PM [facility] REPOSITORY [facility] Cardiovascular Services [address] [place] [address] Abd Aortic/IVC Duplex scan 04/26/17 0815 MR#: [id number] Acct: [id number] Name: ZORAN BYRNE Rep #: [id number] : 1940 76 From: Luis Antonio Harrell MD Attending Dr: Luis Antonio Harrell MD Status: REG CLI Ordering Dr: Luis Antonio Harrell MD Date: 04/26/17 Location: CT Sex: M C Admitted: Reason For Study: Atherosclerosis Aorta Measurements Aorta Doppler Measurements Proximal aorta measures1.51cm x 1.49cm. in cross-Peak systolic flow velocities within the proximal sectional axis. aorta measure 85 cm/sec. Proximal aorta measures1.53cm. in longitudinal Peak systolic flow velocities within the mid axis. aorta measure 89 cm/sec. Mid aorta measures1.46cm x 1.66cm. in cross- Peak systolic flow velocities within the distal sectional axis. aorta measure 82 cm/sec. Mid aorta measures1.46cm. in longitudinal axis. Distal aorta measures1.34cm x 1.46cm. in cross- sectional axis. Distal aorta measures1.40cm. in longitudinal axis. Left Iliac Artery Peak systolic velocity in the left iliac artery measures 134 cm/sec. Left iliac artery measures 1.38cm x1.47 cm. in the cross-sectional axis. Left iliac artery measures 1.22 cm. in the longitudinal axis. Right Iliac Artery Right iliac artery measures 0.94cm x 1.01 cm. in the cross- sectional axis. Right iliac artery measures 1.10 cm. in the longitudinal axis. Peak systolic velocity in the right iliac artery measures 124 cm/sec. Procedure Aorta IVC Iliac vasculature or bypass grafts 15865. The exam was of poor technical quality due to bowel gas. Exam performed in department. Interpretation Summary 1. Aortoiliac with no aneurysm or stenosis seen. Ordering Physician: Luis Antonio Harrell Referring Physician: Hunter Becker Chi Performed By: Kacie Freitas, RO, RVT 04/28/17 1444 Date Luis Antonio Harrell MD CC: Luis Antonio Harrell MD; Hunter Becker MD Date Dictated: 04/26/17 0815 Date Transcribed: 04/28/17 1444 Soil Chemist: Signed LOWER EXT ARTERIAL Observed: 04/28/2017 Status: F Source: [place] STUDY 1:27 PM [facility] REPOSITORY [facility] Cardiovascular Services [address] [place] [address] 04/28/17 1322 MR#: [id number] Acct: [id number] Name: CHAVEZZORAN Mundo Rep #: [id number] : 1940 76 From: Luis Antonio Harrell MD Attending Dr: Luis Antonio Harrell MD Status: REG CLI Ordering Dr: Date: 04/28/17 Location: CT Sex: M C Admitted: Arterial Study - Arterial Study Arterial Study: Date of scan 04/26/[address] Harrell Patient with a history of iliac stenting here for follow-up evaluation Interpretation: Right lower extremity normal pulsatile flow noted at the ankle duplex showing triphasic flow both vessels at the ankle with an SE 0.99 in the posterior tib 1.0 for the dorsalis pedis. Digital brachial index 0.55 next Left lower extremity normal pulsatile flow noted at the ankle again triphasic flow is noted with a SE 0.99 in the posterior tibial and 1.07 of the dorsalis pedis. Digital brachial index 0.52 Impression: 1. Bilateral lower extremities with no evidence significant arterial occlusive disease at rest with triphasic flow noted SE 1.04 and 1.07. 2. Mild small vessel disease bilaterally with digit brachial index 0.55 and 0.52 04/28/17 1327 <Electronically signed by Luis Antonio Harrell MD> Date Luis Antonio Harrell MD CC: Luis Antonio Harrell MD; Hunter Becker MD Date Dictated: 04/28/172 Date Transcribed: 04/28/171321 Soil Chemist: ERVIN Signed CTA NECK W/WO Observed: 04/26/2017 Status: F Source: [place] CONTRAST 7:53 AM [facility] REPOSITORY [facility] Imaging Services [address] [place] [address] CTA Neck W/WO Contrast MR#: [id number] Acct: [id number] Name: ZORAN BYRNE Rep #: [id number] : 1940 M 76 From: Zain Collier MD PCP: Hunter Becker MD, Chi Status: REG CLI Study: CTA Neck W/WO Contrast Date of Exam: 04/26/17 Exam# [id number] Ordering Dr: Luis Antonio Harrell MD STUDY: CTA NECK WITH CONTRAST REASON FOR EXAM: Male, 76 years old. History of carotid stenosis. RADIATION DOSAGE (If Supplied By Facility): CTDIvol = ( 18.46 ) mGy, DLP = ( 642.75 ) mGycm TECHNIQUE: CT angiography with multi-detector data acquisition was performed from the aortic arch to the skull base following intravenous administration of 100 ml of Isovue 370 contrast. MIP images were reconstructed from the axial data set. Post-processing of the angiographic images was performed, with multiplanar reformation and 3D reconstruction. Individualized dose optimization techniques were used for this CT. COMPARISON: None. FINDINGS: AORTIC ARCH: There is atherosclerotic calcific plaque formation of the aortic arch and great vessels arising from the aortic arch, without a hemodynamically significant stenosis. There is a normal origin of the brachiocephalic, left common carotid, and left subclavian arteries. Prior coronary artery bypass surgery. Normal origins of the brachiocephalic, left common carotid, and left subclavian arteries. RIGHT CAROTID ARTERIES: Normal right common carotid artery (CCA). Normal right common carotid bulb. There is moderate atherosclerotic plaque formation of the origin of the right internal carotid artery with an estimated stenosis of 50-69% stenosis. Findings suggestive of a ulcerated plaque at the origin of the right internal carotid artery. Normal visualized cervical portion of the right internal carotid artery. Normal origin of the right external carotid artery (ECA). LEFT CAROTID ARTERIES: Normal left common carotid artery (CCA). Normal left common carotid bulb. There is mild atherosclerotic plaque formation of the origin of the left internal carotid artery with less than 50% cross sectional diameter stenosis. Normal visualized cervical portion of the left internal carotid artery. Normal origin of the left external carotid artery (ECA). VERTEBRAL ARTERIES: There is enhancement within the bilateral vertebral arteries with a small right vertebral artery, and a dominant left vertebral artery. CT/CTA Neck W/WO Contrast IMPRESSION: 50-70% narrowing of the right internal carotid artery at its origin with the findings suggestive of possible ulceration at its origin. Electronically Signed: Zain Collier MD at 11:48 EST Tel [phone], Service support , CC: Luis Antonio Harrell MD; Hunter Becker MD Soil Chemist: Signed ALLERGIES ALLERGIES DATE TYPE / CODE NAME / CODE REACTION SEVERITY SOURCE 02/19/2018 Drug No Known Unknown [facility] Allergy/4160 Allergies/F00 Hospital 69583(SNOMED 3448442(RXNOR Repository CT) M) ENCOUNTERS ENCOUNTERS ADMIT/DISCHARGE ACCOUNT ADMITTING ENCOUNTER LOCATION SOURCE NUMBER CLASS 03/27/2018 [id number] Ambulatory [place] 7 [facility] ing:MTLAB Repository 03/14/2018/ [id number] Ambulatory BMSBuilding:B [place] 9 6 [facility] Repository 02/19/2018/ [id number] Ambulatory BMSBuilding:B [place] 8 3 [facility] Repository 12/27/2017 [id number] Ambulatory [place] 0 [facility] ing:POLAB3 Repository 11/29/2017/ [id number] Ambulatory BMSBuilding:B [place] 8 6 [facility] Repository 11/24/2017 [id number] Ambulatory [place] 7 [facility] ing:POLAB3 Repository 09/08/2017 [id number] Amb[place] [facility] ing[facility]S Repository 09/08/2017 [id number] Ambulatory BMSBuilding:W [place] 2 [facility] Repository 09/08/2017 [id number] Ambulatory [place] [facility] ing:POLAB3 Repository 09/01/2017 [id number] Ambulatory [place] [facility] ing:US Repository 08/31/2017 [id number] Ambulatory [place] 2 [facility] ing:CT Repository 08/23/2017/ [id number] Ambulatory BMSBuilding:B [place] 8 9 [facility] Repository 08/23/2017 [id number] Ambulatory BMSBuilding:B [place] 9 [facility] Repository 08/21/2017/ [id number] Ambulatory BMSBuilding:B [place] 8 3 [facility] Repository 07/18/2017 [id number] Ambulatory [place] [facility] ing:[facility]S Repository 07/18/2017 [id number] Ambulatory BMSBuilding:B [place] 5 [facility] Repository 06/16/2017 [id number] Ambulatory [place] 4 [facility] ing:[facility] Repository 06/16/2017 [id number] Ambulatory BMSBuilding:W [place] 9 [facility] Repository 05/23/2017 [id number] Ambulatory [place] 7 [facility] ing:CT Repository 05/23/2017 [id number] Ambulatory [place] 4 [facility] ing:POLAB3 Repository 05/22/2017/ [id number] Ambulatory BMSBuilding:B [place] 8 0 [facility] Repository 04/26/2017 [id number] Ambulatory [place] 3 [facility] Repository PAYERS PAYERS ENCOUNTER GUARANTOR PAYER SUBSCRIBER SOURCE 03/27/2018 ZORAN Flower Primary ZORAN [id number] CR Insurance:MEDICARE ANDERSONDOB: [address], PART A BPolicy Number: [id number] [facility] [address]Wvk: [id number] Repository Date:2018-03-26 () 03/27/2018 Secondary ZORAN D [place] Insurance:MEDICAL ANDERSONDOB: [facility] [id number] Hospital Number: Repository [id number] Date:7177-22-29RS [address] [place] [address]YC: 03/27/2018 Tertiary NOT GIVENUNK [place] Insurance:SELF PAY [facility] Number: Effective Repository Date:2018-03-26 03/14/2018 ZORAN D Primary ZORAN D [place] [id number] Insurance:MEDICARE ANDERSONDOB: [facility] PART A olicy Number: [id number], [id number] [place]ository [place] [address]Vko: Date:2017-12-06 () 03/14/2018 Secondary ZORAN D [place] Insurance:HUMANA ANDERSONDOB: [facility] [id number] Hospital Number: Repository [id number] Date:6056-72-51CL [address] [place] [address]UT: 03/14/2018 Tertiary NOT GIVENUNK [place] Insurance:SELF PAY [facility] Number: Effective Repository Date:2018-03-14 02/19/2018 ZORAN D Primary ZORAN D [place] [id number] Insurance:MEDICARE ANDERSONDOB: [facility] PART A olicy Number: [id number], [id number] [place]ository [place] [address]Zbq: Date:2017-08-23 () 02/19/2018 Secondary ZORAN D [place] Insurance:HUMANA ANDERSONDOB: [facility] [id number] Hospital Number: Repository [id number] Date:1321-26-69PL [address] [place] [address]YK: 02/19/2018 Tertiary NOT GIVENUNK [place] Insurance:SELF PAY [facility] Number: Effective Repository Date:2018-02-19 12/27/2017 ZORAN D Primary ZORAN D [place] [id number] Insurance:MEDICARE ANDERSONDOB: [facility] PART A BPolicy Number: [id number] [id number] Repository [place] [address]Lml: Date:2017-12-27 () 12/27/2017 Secondary ZORAN D [place] Insurance:HUMANA ANDERSONDOB: [facility] [id number] Hospital Number: Repository [id number] Date:6812-15-19BX [address] [place] [address]VY: 12/27/2017 Tertiary NOT GIVENUNK [place] Insurance:SELF PAY [facility] Number: Effective Repository Date:2017-12-27 11/29/2017 ZORAN D Primary ZORAN D [place] [id number] Insurance:MEDICARE ANDERSONDOB: [facility] PART A BPolicy Number: [id number] [id number] Repository [place] [address]Anu: Date:2017-08-21 () 11/29/2017 Secondary ZORAN D [place] Insurance:HUMANA ANDERSONDOB: [facility] [id number] Hospital Number: Repository [id number] Date:1556-94-79NF [address] [place] [address]GU: 11/29/2017 Tertiary NOT GIVENUNK [place] Insurance:SELF PAY [facility] Number: Effective Repository Date:2017-11-29 11/24/2017 ZORAN D Primary ZORAN D [place] [id number] CR Insurance:MEDICARE ANDERSONDOB: [address], PART A BPolicy Number: [id number] [facility] [address]Nhu: [id number] Repository Date:2017-11-24 () 11/24/2017 Secondary ZORAN D [place] Insurance:HUMANA ANDERSONDOB: [facility] [id number] Hospital Number: Repository [id number] Date:1035-95-93RX [address] [address]FF: 11/24/2017 Tertiary NOT GIVENUNK [place] Insurance:SELF PAY [facility] Number: Effective Repository Date:2017-11-24 09/08/2017 ZORAN D Primary ZORAN D [place] [id number] CR Insurance:MEDICARE ANDERSONDOB: [place] [address], PART A BPolicy Number: [id number] [facility] [address]Tad: [id number] Repository Date:2017-09-01 () 09/08/2017 Secondary ZORAN D [place] Insurance:HUMANA ANDERSONDOB: [facility] [id number] Hospital Number: Repository [id number] Date:0458-84-90HR [address] [address]LK: 09/08/2017 Tertiary NOT GIVENUNK [place] Insurance:SELF PAY [facility] Number: Effective Repository Date:2017-09-01 09/08/2017 ZORAN D Primary ZORAN D [place] [id number] CR Insurance:MEDICARE ANDERSONDOB: [place] [address], PART A BPolicy Number: [id number] [facility] [address]Nlm: [id number] Repository Date:2017-09-01 () 09/08/2017 Secondary ZORAN D [place] Insurance:HUMANA ANDERSONDOB: [facility] [id number] Hospital Number: Repository [id number] Date:7135-05-83WP [address] [address]XT: 09/08/2017 Tertiary NOT GIVENUNK [place] Insurance:SELF PAY [facility] Number: Effective Repository Date:2017-09-08 09/08/2017 ZORAN D Primary ZORAN D [place] [id number] CR Insurance:MEDICARE ANDERSONDOB: [place] [address], PART A BPolicy Number: [id number] [facility] [address]Ubv: [id number] Repository Date:2017-09-08 (HP) 09/08/2017 Secondary ZORAN D [place] Insurance:HUMANA ANDERSONDOB: Community COMMERCIALPolicy [id number] Hospital Number: Repository [id number] Date:6674-66-77PI [address] [address]KN: 09/08/2017 Tertiary NOT GIVENUNK [place] Insurance:SELF PAY [facility] Number: Effective Repository Date:2017-09-08 09/01/2017 ZORAN D Primary ZORAN D [place] [id number] CR Insurance:MEDICARE ANDERSONDOB: [place] [address], PART A BPolicy Number: [id number] [facility] [address]Yci: [id number] Repository Date:2017-09-01 () 09/01/2017 Secondary ZORAN D [place] Insurance:HUMANA ANDERSONDOB: [facility] COMMERCIALPolicy [id number] Hospital Number: Repository [id number] Date:5058-68-14CZ [address] [address]PU: 09/01/2017 Tertiary NOT GIVENUNK [place] Insurance:SELF PAY [facility] Number: Effective Repository Date:2017-09-01 08/31/2017 ZORAN D Primary ZORAN D [place] [id number] CR Insurance:MEDICARE ANDERSONDOB: [place] [address], PART A BPolicy Number: [id number] [facility] [address]Oln: [id number] Repository Date:2017-08-31 () 08/31/2017 Secondary ZORAN D [place] Insurance:HUMANA ANDERSONDOB: [facility] COMMERCIALPolicy [id number] Hospital Number: Repository [id number] Date:5249-13-35LS [address] [address]BS: 08/31/2017 Tertiary NOT GIVENUNK [place] Insurance:SELF PAY [facility] Number: Effective Repository Date:2017-08-31 08/23/2017 ZORAN D Primary ZORAN D [place] [id number] Insurance:MEDICARE ANDERSONDOB: Community [address] PART A BPolicy Number: [id number] [id number] [place]ository [place] [address]Etx: Date:2017-02-23 () 08/23/2017 Secondary ZORAN D [place] Insurance:HUMANA ANDERSONDOB: [facility] [id number] Hospital Number: Repository [id number] Date:4707-55-32WZ [address] [place] [address]XM: 08/23/2017 Tertiary NOT GIVENUNK [place] Insurance:SELF PAY [facility] Number: Effective Repository Date:2017-08-23 08/23/2017 ZORAN D Primary ZORAN D [place] [id number] CR Insurance:MEDICARE ANDERSONDOB: [address], PART A BPolicy Number: [id number] [facility] [address]Zqz: [id number] Repository Date:2017-08-23 () 08/23/2017 Secondary ZORAN D [place] Insurance:HUMANA ANDERSONDOB: [facility] [id number] Hospital Number: Repository [id number] Date:6841-01-42NQ [address] [address]XC: 08/23/2017 Tertiary NOT GIVENUNK [place] Insurance:SELF PAY [facility] Number: Effective Repository Date:2017-08-23 08/21/2017 ZORAN D Primary ZORAN D [place] [id number] CR Insurance:MEDICARE ANDERSONDOB: [address], PART A BPolicy Number: [id number] [facility] [address]Kne: [id number] Repository Date:2017-05-22 () 08/21/2017 Secondary ZORAN D [place] Insurance:HUMANA ANDERSONDOB: [facility] [id number] Hospital Number: Repository [id number] Date:1153-38-61YA [address] [address]ZL: 08/21/2017 Tertiary NOT GIVENUNK [place] Insurance:SELF PAY [facility] Number: Effective Repository Date:2017-08-21 07/18/2017 ZORAN D Primary ZORAN D [place] [id number] CR Insurance:MEDICARE ANDERSONDOB: [place] [address], PART A olicy Number: [id number] [facility] [address]Ozm: [id number] Repository Date:2017-06-20 () 07/18/2017 Secondary ZORAN D [place] Insurance:HUMANA ANDERSONDOB: Community COMMERCIALPolicy [id number] Hospital Number: Repository [id number] Date:0495-91-22GU [address] [place] [address]TB: 07/18/2017 Tertiary NOT GIVENUNK [place] Insurance:SELF PAY [facility] Number: Effective Repository Date:2017-06-20 07/18/2017 ZORAN D Primary ZORAN D [place] [id number] CR Insurance:MEDICARE ANDERSONDOB: [place] [address], PART A olicy Number: [id number] [facility] [address]Ljc: [id number] Repository Date:2017-06-20 () 07/18/2017 Secondary ZORAN D [place] Insurance:HUMANA ANDERSONDOB: [facility] [id number] Hospital Number: Repository [id number] Date:4640-47-69RG [address] [place] [address]ZW: 07/18/2017 Tertiary NOT GIVENUNK [place] Insurance:SELF PAY [facility] Number: Effective Repository Date:2017-07-18 06/16/2017 ZORAN D Primary ZORAN D [place] [id number] [address] Insurance:MEDICARE ANDERSONDOB: [place] [address], PART A olicy Number: [id number] [facility] [address]Qzr: [id number] Repository Date:2017-05-31 () 06/16/2017 Secondary ZORAN D [place] Insurance:HUMANA ANDERSONDOB: [facility] COMMERCIALPolicy [id number] Hospital Number: Repository [id number] Date:2338-17-87MO [address] [place] [address]HW: 06/16/2017 Tertiary NOT GIV[place]UNK [place] Insurance:SELF PAY [facility] Number: Effective Repository Date:2017-05-31 06/16/2017 ZORAN D Primary ZORAN D [place] [id number] [address] Insurance:MEDICARE ANDERSONDOB: [place] [address], PART A BPolicy Number: [id number] [facility] [address]Obc: [id number] Repository Date:2017-05-31 () 06/16/2017 Secondary ZORAN D [place] Insurance:HUMANA ANDERSONDOB: [facility] [id number] Hospital Number: Repository [id number] Date:4932-47-78GZ [address] [place] [address]EN: 06/16/2017 Tertiary NOT GIVENUNK [place] Insurance:SELF PAY [facility] Number: Effective Repository Date:2017-06-16 05/23/2017 ZORAN D Primary ZORAN D [place] [id number] CR Insurance:MEDICARE ANDERSONDOB: [place] [address], PART A BPolicy Number: [id number] [facility] [address]Sxb: [id number] Repository Date:2017-05-23 () 05/23/2017 Secondary ZORAN D [place] Insurance:HUMANA ANDERSONDOB: [facility] [id number] Hospital Number: Repository [id number] Date:9008-23-11SR [address] [place] [address]WJ: 05/23/2017 Tertiary NOT GIVENUNK [place] Insurance:SELF PAY [facility] Number: Effective Repository Date:2017-05-23 05/23/2017 ZORAN D Primary Z[place]AN D [place] [id number] CR Insurance:MEDICARE ANDERSONDOB: [place] [address], PART A BPolicy Number: [id number] [facility] [address]Gib: [id number] Repository Date:2017-05-23 () 05/23/2017 Secondary [place]ORAN D [place] Insurance:HUMANA ANDERSONDOB: Community COMMERCIALPolicy [id number] Hospital Number: Repository [id number] Date:[id number] [address] [place] [id number]: 05/23/2017 Tertiary NOT GIVENUNK [place] Insurance:SELF PAY [facility]: Effective Repository Date:2017-05-23 05/22/2017 ZORAN D Primary ZORAN D [place] [id number] CR Insurance:MEDICARE ANDERSONDOB: Community [id number], [place] A BPolicy Number: [id number] [facility] [address]Ots: [id number] Repository Date:2017-02-20 () 05/22/2017 Secondary ZORAN D [place] Insurance:HUMANA ANDERSONDOB: [facility] [id number] Number: Repository [id number] Date:[id number] [address] [id number]: 05/22/2017 Tertiary NOT GIVENUNK [place] Insurance:SELF PAY [facility] Number: Effective Repository Date:2017-02-20 04/26/2017 ZORAN D Primary ZORAN D [place] [id number] CR Insurance:MEDICARE ANDERSONDOB: Community [id number], PART A BPolicy Number: [id number] [facility] [address]Oxt: [id number] Repository Date:2017-04-13 () 04/26/2017 Secondary ZORAN D [place] Insurance:HUMANA ANDERSONDOB: [facility] [id number] Hospital Number: Repository [id number] Date:[id number] [address] [place] [id number]: 04/26/2017 Tertiary NOT GIVENUNK [place] Insurance:SELF PAY [facility] Number: Effective Repository Date:2017-04-13
== END ==
PROVIDERS: Family Provider Family Medicine Geriatric Medicine; PCP Family Medicine Geriatric Medicine; Referring Provider Internal Medicine Nephrology; Visit Provider Internal Medicine Nephrology
DX: N18.3 Chronic kidney disease, stage 3 (moderate) (principal)
CPT/HCPCS: 36415; 80069; 83970; 85027

== ENCOUNTER → 2018-05-28 13:35 | Outpatient (CLI) | payer MEDICARE, OTHER, SELFPAY ==
[2018-02-19 14:19] VITALS: BMI 29.2
[2018-05-28 15:27] LABS: Absolute Lymphocyte Count 1.53 X10^3/ul (0.83-4.51); Absolute Neutrophil Count 3.2 X10^3/uL (2.0-7.7); Basophil# 0.01 X10^3/uL; Basophil% 0.2 % (0-1); Eosinophil# 0.12 X10^3/uL; Eosinophils% 2.2 % (0-5); Hematocrit 44.9 % (40-54); Hemoglobin 14.6 g/dl (13.0-16.5); Lymphocyte # 1.53 X10^3/ul (4.0); Lymphocyte % 28.4 % (19-41); Mean Corp Hgb Conc 32.5 g/gl (32-36); Mean Corpuscular Hgb 29.6 pg (27.0-32.0); Mean Corpuscular Volume 91.1 fL (80-94); Mean Platelet Vol. 11.5 fl (6.2-12.0); Monocyte# 0.53 X10^3/uL; Monocyte% 9.9 % (0-10); Neutrophil # 3.18 X10^3/uL (2.7-7.7); Neutrophil % 59.1 % (47-70); Platelet Count 235 K/mm3 (150-450); RBC Distribution Width CV 13.4 % (11.6-14.6); RBC Distribution Width SD 43.9 fl (35.1-43.9); Red Blood Count 4.93 M/mm3 (4.6-6.2); White Blood Count 5.4 K/mm3 (4.4-11.0)
[2018-05-28 15:28] LABS: POSITIVE COUNT NO; POSITIVE DIFFERENTIAL NO; POSITIVE MORPHOLOGY NO
[2018-05-28 15:48] LABS: ALB/GLOB Ratio 0.8 RATIO (0.9-2.4); AST(SGOT) 15 U/L (15-37); Alanine Aminotransfer ALT/SGPT 25 U/L (16-61); Albumin, Serum 3.5 g/dL (3.2-5.0); Alkaline Phosphatase 80 U/L (45-117); Anion Gap 8 (5-15); BUN 33 mg/dL (7-18); BUN/Creat Ratio 17.1 RATIO (10-20); Calcium,Total 8.4 mg/dL (8.5-10.1); Chloride 103 mmol/L (98-107); Creatinine, Serum 1.93 mg/dL (0.70-1.30); EST Glomerular Filtration Rate 36 mL/min (>60); Est Glom Filt Rate - Afr Amer 44 mL/min (>60); Globulin 4.2 g/dL (2.2-4.2); Glucose 204 mg/dL (74-106); Potassium 4.7 mmol/L (3.5-5.1); Protein, Total 7.7 g/dL (6.4-8.2); Sodium Level 136 mmol/L (136-145); Thyroid Stim Hormone (TSH) 1.67 uIU/mL (0.358-3.74)
== END ==
PROVIDERS: Family Provider Family Medicine Geriatric Medicine; PCP Family Medicine Geriatric Medicine; Visit Provider Family Medicine Geriatric Medicine
DX: E11.9 Type 2 diabetes mellitus without complications (principal); I10 Essential (primary) hypertension; E55.9 Vitamin D deficiency, unspecified
CPT/HCPCS: 36415; 80053; 82306; 84443; 85025

== ENCOUNTER → 2018-08-17 08:48 | Outpatient (CLI) | payer MEDICARE, OTHER, SELFPAY ==
[2018-02-19 14:19] VITALS: BMI 29.2
[2018-08-15 14:12] VITALS: BMI 28.9
--- NOTE | 2018-08-17 08:50 | CDU_ITS ---
Reason For Study: ATHEROSCLEROSIS Rt. Velocities/BP Lt. Velocities/BP Prox CCA 128/19 cm/sec. Prox CCA 88/19 cm/sec. Mid CCA 73/20 cm/sec. Mid CCA 82/18 cm/sec. Dist CCA 68/16 cm/sec. Dist CCA 80/19 cm/sec. Prox ICA 221/53 cm/sec. Prox ICA 83/18 cm/sec. Mid ICA 195/43 cm/sec. Mid ICA 89/23 cm/sec. Dist ICA 130/27 cm/sec. Dist ICA 70/19 cm/sec. Rt. ICA/CCA = 1.7. Lt. ICA/CCA = 1.0. Prox ECA 116/13 cm/sec. Prox ECA 157/6 cm/sec. Rt. Vert. 50/0 cm/sec. Lt. Vert. 47/13 cm/sec. Right Extracranial There is homogeneous, smooth atherosclerotic plaque noted in the right common carotid artery. There is heterogeneous, irregular atherosclerotic plaque noted in the right internal carotid artery. There is heterogeneous, irregular atherosclerotic plaque noted in the right external carotid artery. Antegrade flow is noted in the right vertebral artery. Left Extracranial There is homogeneous, smooth atherosclerotic plaque noted in the left common carotid artery. There is heterogeneous, irregular atherosclerotic plaque noted in the left internal carotid artery. There is heterogeneous, irregular atherosclerotic plaque noted in the left external carotid artery. Antegrade flow is noted in the left vertebral artery. Procedure Carotid Duplex 13012. Exam performed in department. Interpretation Summary Moderate (50-69%) stenosis right extracranial internal carotid. Mild (<50%) stenosis left extracranial internal carotid. Flow within the vertebral arteries is antegrade bilaterally. Ordering Physician: Luis Antonio Harrell Referring Physician: MARISSA BENNETT CHI Performed By: Andreina Samuels, RO, RVT
--- NOTE | 2018-08-17 08:50 | ART_ITS ---
Reason For Study: ATHEROSCLEROSIS Procedure A bilateral lower extremity continuous wave Doppler with analog waveform analysis and ankle brachial indexes. Left Segmental Pressures Left brachial= 136mmHg. Left posterior tibial artery = 136mmHg. Left dorsalis pedis artery = 146mmHg. The left posterior tibial artery waveforms are biphasic. The left dorsalis pedis waveforms are triphasic. Right Segmental Pressures Right brachial= 149mmHg. Right posterior tibial artery = 145mmHg. Right dorsalis pedis artery = 150mmHg. The right dorsalis pedis waveforms are triphasic. The right posterior tibial artery waveforms are triphasic. Indices The right ankle brachial index by the dorsalis pedis is 1.0. The right ankle brachial index by the posterior tibial artery is 1.0. The left ankle brachial index by the dorsalis pedis is 1.0. The left ankle brachial index by the posterior tibial artery is .9. Interpretation Summary 1. Bilateral triphasic flow and leanne 1.0/1.0. Ordering Physician: Luis Antonio Harrell Referring Physician: Luis Antonio Harrell Performed By: JACOB SCOTT [facility]
--- NOTE | 2018-08-17 08:51 | AAVD_ITS ---
Reason For Study: ATHEROSCLEROSIS Aorta Measurements Aorta Doppler Measurements Proximal aorta measures1.4 X 1.5cm. in cross- Peak systolic flow velocities within the proximal sectional axis. aorta measure 37 cm/sec. Proximal aorta measures1.6cm. in longitudinal Peak systolic flow velocities within the mid aorta axis. measure 74 cm/sec. Mid aorta measures1.5 X 1.6cm. in cross-sectional Peak systolic flow velocities within the distal axis. aorta measure 104 cm/sec. Mid aorta measures1.6cm. in longitudinal axis. Distal aorta measures1.7 X 1.6cm. in cross- sectional axis. Distal aorta measures1.6cm. in longitudinal axis. Left Iliac Artery Left iliac artery measures .8 X .9 cm. in the longitudinal axis. Left iliac artery measures 1.0 cm. in the cross-sectional axis. Peak systolic velocity in the left iliac artery measures 109 cm/sec. Right Iliac Artery Right iliac artery measures .9 X 1.1 cm. in the longitudinal axis. Right iliac artery measures 1.0 cm. in the cross-sectional axis. Peak systolic velocity in the right iliac artery measures 107 cm/sec. Procedure Aorta IVC Iliac vasculature or bypass grafts 31298. Technically difficult due to bowel gas. Exam performed in department. Interpretation Summary 1. No aortoiliac stenosis or aneurysm. Ordering Physician: Luis Antonio Harrell Referring Physician: Luis Antonio Harrell Performed By: Andreina Samuels, ALICIACS, RVT
== END ==
PROVIDERS: Family Provider Family Medicine Geriatric Medicine; PCP Family Medicine Geriatric Medicine; Referring Provider Surgery Vascular Surgery; Visit Provider Surgery Vascular Surgery
DX: I65.23 Occlusion and stenosis of bilateral carotid arteries (principal); I70.211 Atherosclerosis of native arteries of extremities with intermittent claudication, right leg; I70.212 Atherosclerosis of native arteries of extremities with intermittent claudication, left leg; E11.9 Type 2 diabetes mellitus without complications; I25.10 Atherosclerotic heart disease of native coronary artery without angina pectoris; E78.00 Pure hypercholesterolemia, unspecified; I10 Essential (primary) hypertension; Z85.038 Personal history of other malignant neoplasm of large intestine; Z87.891 Personal history of nicotine dependence
CPT/HCPCS: 93880; 93922; 93978

== ENCOUNTER → 2018-09-21 13:24 | Outpatient (CLI) | payer MEDICARE, OTHER, SELFPAY ==
[2018-02-19 14:19] VITALS: BMI 29.2
[2018-08-15 14:12] VITALS: BMI 28.9
[2018-09-21 15:50] LABS: Albumin, Serum 3.4 g/dL (3.2-5.0); BUN 37 mg/dL (7-18); BUN/Creat Ratio 19.1 RATIO (10-20); Calcium,Total 8.7 mg/dL (8.5-10.1); Chloride 102 mmol/L (98-107); Creatinine, Serum 1.94 mg/dL (0.70-1.30); EST Glomerular Filtration Rate 36 mL/min (>60); Est Glom Filt Rate - Afr Amer 43 mL/min (>60); Glucose 214 mg/dL (74-106); Phosphorus 4.2 mg/dL (2.5-4.9); Potassium 4.3 mmol/L (3.5-5.1); Protein, Urine (Random) 15.9 mg/dL (<11.9); Protein:Creat Ratio 182 mg/g CRE (0-200); Sodium Level 134 mmol/L (136-145)
== END ==
PROVIDERS: Family Provider Family Medicine Geriatric Medicine; PCP Family Medicine Geriatric Medicine; Referring Provider Internal Medicine Nephrology; Visit Provider Internal Medicine Nephrology
DX: E11.22 Type 2 diabetes mellitus with diabetic chronic kidney disease (principal); N18.3 Chronic kidney disease, stage 3 (moderate)
CPT/HCPCS: 36415; 80069; 82570; 84156

== ENCOUNTER → 2018-11-29 14:44 | Outpatient (CLI) | payer MEDICARE, OTHER, SELFPAY ==
[2018-08-15 14:12] VITALS: BMI 28.9
[2018-11-29 15:54] LABS: Absolute Lymphocyte Count 1.54 X10^3/uL (0.83-4.51); Basophil# 0.02 X10^3/uL; Basophil% 0.4 % (0-1); Eosinophil# 0.15 X10^3/uL; Eosinophils% 2.9 % (0-5); Hematocrit 43.4 % (40-54); Hemoglobin 13.8 g/dL (13.0-16.5); Lymphocyte # 1.54 X10^3/ul (4.0); Mean Corp Hgb Conc 31.8 g/dL (32-36); Mean Corpuscular Hgb 30.7 pg (27.0-32.0); Mean Corpuscular Volume 96.4 fL (80-94); Monocyte# 0.46 X10^3/uL; Monocyte% 8.9 % (0-10); NRBC Flagged by Analyzer 0 % (0-5); Neutrophil # 2.96 X10^3/uL (2.7-7.7); Neutrophil % 57.6 % (47-70); Platelet Count 235 K/mm3 (150-450); RBC Distribution Width CV 13.2 % (11.6-14.6); White Blood Count 5.1 K/mm3 (4.4-11.0)
[2018-11-29 16:24] LABS: ALB/GLOB Ratio 0.8 RATIO (0.9-2.4); AST(SGOT) 13 U/L (15-37); Alanine Aminotransfer ALT/SGPT 23 U/L (16-61); Albumin, Serum 3.5 g/dL (3.2-5.0); Alkaline Phosphatase 68 U/L (45-117); Anion Gap 6 (5-15); BUN 28 mg/dL (7-18); BUN/Creat Ratio 13.8 RATIO (10-20); Calcium,Total 8.7 mg/dL (8.5-10.1); Chloride 105 mmol/L (98-107); Creatinine, Serum 2.03 mg/dL (0.70-1.30); EST Glomerular Filtration Rate 34 mL/min (>60); Est Glom Filt Rate - Afr Amer 41 mL/min (>60); Globulin 4.3 g/dL (2.2-4.2); Glucose 94 mg/dL (74-106); Potassium 4.7 mmol/L (3.5-5.1); Protein, Total 7.8 g/dL (6.4-8.2); Sodium Level 140 mmol/L (136-145); Thyroid Stim Hormone (TSH) 1.91 uIU/mL (0.358-3.74)
[2018-11-29 16:49] LABS: Vitamin D,25 Hydroxy 26.9 ng/mL (29.95-100.01)
== END ==
PROVIDERS: Family Provider Family Medicine Geriatric Medicine; PCP Family Medicine Geriatric Medicine; Visit Provider Family Medicine Geriatric Medicine
DX: E11.9 Type 2 diabetes mellitus without complications (principal); E55.9 Vitamin D deficiency, unspecified; I10 Essential (primary) hypertension
CPT/HCPCS: 36415; 80053; 82306; 84443; 85025

== ENCOUNTER → 2019-01-24 11:35 | Outpatient (CLI) | payer MEDICARE, OTHER, SELFPAY ==
[2018-08-15 14:12] VITALS: BMI 28.9
--- NOTE | 2019-01-24 11:43 | CT_ITS ---
STUDY: CT BRAIN WITHOUT CONTRAST REASON FOR EXAM: Male, 78 years old. Memory loss RADIATION DOSAGE (If Supplied By Facility): CTDIvol = ( 44.99 ) mGy, DLP = ( 796.11 ) mGycm TECHNIQUE: Transaxial CT imaging of the brain was performed without administration of intravenous contrast material. Individualized dose optimization techniques were used for this CT. COMPARISON: No relevant priors. FINDINGS: Normal soft tissue structures. Normal calvarium. Normal size ventricles and extra-axial spaces for the patient's age. There are areas of decreased attenuation within the white matter tracts of the supratentorial brain, consistent with marked microvascular disease changes. Chronic bilateral basal ganglia lacunar infarcts. Normal brainstem. Normal cerebellum. There is no intracranial hemorrhage. There are no findings of an acute ischemic infarction. Normal visualized paranasal sinuses. CT/Brain/Head without Contrast IMPRESSION: Chronic involutional changes of the brain. Electronically Signed: Rajan Daly, at 12:20 EST Tel , Service support ,
[2019-01-24 11:51] LABS: Absolute Lymphocyte Count 0.96 X10^3/uL (0.83-4.51); Absolute Neutrophil Count 2.9 X10^3/uL (2.0-7.7); Basophil# 0.01 X10^3/uL; Basophil% 0.2 % (0-1); Eosinophil# 0.09 X10^3/uL; Hematocrit 45.4 % (40-54); Hemoglobin 14.8 g/dL (13.0-16.5); Lymphocyte # 0.96 X10^3/ul (4.0); Lymphocyte % 21.8 % (19-41); Mean Corp Hgb Conc 32.6 g/dL (32-36); Mean Corpuscular Hgb 31.5 pg (27.0-32.0); Mean Corpuscular Volume 96.6 fL (80-94); Mean Platelet Vol. 10.9 fl (6.2-12.0); Monocyte# 0.44 X10^3/uL; NRBC Flagged by Analyzer 0 % (0-5); Neutrophil % 65.8 % (47-70); Platelet Count 194 K/mm3 (150-450); RBC Distribution Width CV 13.3 % (11.6-14.6); RBC Distribution Width SD 47.4 fl (35.1-43.9); White Blood Count 4.4 K/mm3 (4.4-11.0)
[2019-01-24 12:13] LABS: Vitamin B12 540 pg/mL (211-911)
[2019-01-24 12:19] LABS: ALB/GLOB Ratio 0.9 RATIO (0.9-2.4); AST(SGOT) 9 U/L (15-37); Alanine Aminotransfer ALT/SGPT 18 U/L (16-61); Albumin, Serum 3.5 g/dL (3.2-5.0); Alkaline Phosphatase 66 U/L (45-117); Anion Gap 6 (5-15); BUN 21 mg/dL (7-18); Calcium,Total 8.9 mg/dL (8.5-10.1); Chloride 103 mmol/L (98-107); Creatinine, Serum 1.75 mg/dL (0.70-1.30); EST Glomerular Filtration Rate 40 mL/min (>60); Est Glom Filt Rate - Afr Amer 49 mL/min (>60); Glucose 113 mg/dL (74-106); Potassium 4.4 mmol/L (3.5-5.1); Protein, Total 7.5 g/dL (6.4-8.2); Sodium Level 138 mmol/L (136-145)
[2019-01-31 01:56] LABS: Rapid Plasmin Reagin (RPR) NONREACTIVE (NONREACTIVE)
== END ==
PROVIDERS: Family Provider Family Medicine Geriatric Medicine; PCP Family Medicine Geriatric Medicine; Referring Provider Family Medicine Geriatric Medicine; Visit Provider Family Medicine Geriatric Medicine
DX: F03.90 Unspecified dementia, unspecified severity, without behavioral disturbance, psychotic disturbance, mood disturbance, and anxiety (principal); F05 Delirium due to known physiological condition; I63.50 Cerebral infarction due to unspecified occlusion or stenosis of unspecified cerebral artery
CPT/HCPCS: 36415; 70450; 80053; 82607; 82746; 84443; 85025; 86592

== ENCOUNTER → 2019-02-07 10:16 | Outpatient (CLI) | payer MEDICARE, OTHER, SELFPAY ==
[2018-08-15 14:12] VITALS: BMI 28.9
--- NOTE | 2019-02-07 10:18 | CT_ITS ---
STUDY: CT BRAIN WITHOUT CONTRAST REASON FOR EXAM: Male, 78 years old. Unsteadiness. Recent stroke. RADIATION DOSAGE (If Supplied By Facility): CTDIvol = ( 44.99 ) mGy, DLP = ( 796.11 ) mGycm TECHNIQUE: Transaxial CT imaging of the brain was performed without administration of intravenous contrast material. Individualized dose optimization techniques were used for this CT. COMPARISON: Comparison is made with prior study dated January 24, 2019. FINDINGS: Normal soft tissue structures. Normal calvarium. There is mild cerebral atrophy with widening of the extra-axial spaces and ventricular dilatation. There are areas of decreased attenuation within the white matter tracts of the supratentorial brain, consistent with microvascular disease changes. More pronounced white matter changes in the posterior left parietal occipital lobes. This may represent edema. A repeat scan with IV contrast is recommended. Normal basal ganglia and thalami. Normal brainstem. Normal cerebellum. There is no intracranial hemorrhage. There are no findings of an acute ischemic infarction. Atherosclerotic calcification of the cavernous portions of the internal carotid arteries bilaterally. Normal visualized paranasal sinuses. CT/Brain/Head without Contrast IMPRESSION: Chronic involutional changes of the brain. Progressive white matter changes in the posterior left parietal occipital lobes as described. White matter edema should be ruled out. A repeat examination with IV contrast is recommended. Electronically Signed: Zain Collier, at 11:44 EST , Service support ,
--- NOTE | 2019-02-07 13:40 | CT_ITS ---
STUDY: CT BRAIN WITH CONTRAST REASON FOR EXAM: Male, 78 years old. Increasing confusion. RADIATION DOSAGE (If Supplied By Facility): CTDIvol = ( 44.99 ) mGy, DLP = ( 812.98 ) mGycm TECHNIQUE: Transaxial CT imaging of the brain was performed post contrast administration. The examination was performed with intravenous administration of 100ML ISOVUE 300. Individualized dose optimization techniques were used for this CT. COMPARISON: Comparison is made with prior unenhanced scan done earlier today. FINDINGS: Normal soft tissue structures. Normal calvarium. There is mild cerebral atrophy with widening of the extra-axial spaces and ventricular dilatation. There is evidence of a an enhancing mass measuring 2.4 cm x 5.8 cm in the posterior roof of the corpus callosum. There is evidence of surrounding white matter edema in the left posterior parietal occipital lobes. A glioblastoma should be ruled out. No significant hydrocephalus is seen. Small old bilateral lacunar infarcts. Normal brainstem. Normal cerebellum. There is no intracranial hemorrhage. There are no findings of an acute ischemic infarction. Normal visualized paranasal sinuses. 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 Electronically Signed: Zain Collier, at 14:49 EST , Service support ,
[2019-02-07 14:11] LABS: CREATININE FINGERSTICK 1.3 mg/dL (0.70-1.30)
== END ==
PROVIDERS: Family Provider Family Medicine Geriatric Medicine; PCP Family Medicine Geriatric Medicine; Referring Provider Family Medicine Geriatric Medicine; Visit Provider Family Medicine Geriatric Medicine
DX: Z01.812 Encounter for preprocedural laboratory examination (principal); Z86.73 Personal history of transient ischemic attack (TIA), and cerebral infarction without residual deficits
CPT/HCPCS: 70450; 70460; 70470; Q9967

== ENCOUNTER → 2019-03-05 12:56 | Outpatient (CLI) | payer MEDICARE, OTHER, SELFPAY ==
[2018-08-15 14:12] VITALS: BMI 28.9
[2019-02-14 13:39] VITALS: BMI 29.3
[2019-03-05 13:17] LABS: Absolute Lymphocyte Count 1.25 X10^3/uL (0.83-4.51); Absolute Neutrophil Count 6.8 X10^3/uL (2.0-7.7); Basophil# 0.01 X10^3/uL; Basophil% 0.1 % (0-1); Eosinophil# 0.05 X10^3/uL; Eosinophils% 0.6 % (0-5); Hematocrit 46.6 % (40-54); Lymphocyte # 1.25 X10^3/ul (4.0); Lymphocyte % 14.5 % (19-41); Mean Corp Hgb Conc 32.2 g/dL (32-36); Mean Corpuscular Hgb 30.9 pg (27.0-32.0); Mean Corpuscular Volume 96.1 fL (80-94); Mean Platelet Vol. 10.4 fl (6.2-12.0); Monocyte# 0.39 X10^3/uL; Monocyte% 4.5 % (0-10); NRBC Flagged by Analyzer 0 % (0-5); Neutrophil # 6.83 X10^3/uL (2.7-7.7); Neutrophil % 79.5 % (47-70); Platelet Count 142 K/mm3 (150-450); RBC Distribution Width CV 13.9 % (11.6-14.6); RBC Distribution Width SD 49.1 fl (35.1-43.9); Red Blood Count 4.85 M/mm3 (4.6-6.2); White Blood Count 8.6 K/mm3 (4.4-11.0)
[2019-03-05 13:35] LABS: ALB/GLOB Ratio 0.9 RATIO (0.9-2.4); AST(SGOT) 14 U/L (15-37); Alanine Aminotransfer ALT/SGPT 55 U/L (16-61); Alkaline Phosphatase 54 U/L (45-117); Anion Gap 5 (5-15); BUN 42 mg/dL (7-18); Calcium,Total 8.2 mg/dL (8.5-10.1); Chloride 103 mmol/L (98-107); Creatinine, Serum 1.45 mg/dL (0.70-1.30); EST Glomerular Filtration Rate 50 mL/min (>60); Est Glom Filt Rate - Afr Amer 61 mL/min (>60); Globulin 3.2 g/dL (2.2-4.2); Glucose 143 mg/dL (74-106); LDH 388 U/L (87-241); Phosphorus 3.3 mg/dL (2.5-4.9); Potassium 4.6 mmol/L (3.5-5.1); Protein, Total 6.2 g/dL (6.4-8.2); Sodium Level 140 mmol/L (136-145)
[2019-03-05 13:58] LABS: PTHIN 228.5 pg/mL (18.4-80.1)
[2019-03-08 05:06] LABS: HEPATITIS B SURFACE AG Negative (Negative); Hepatitis A AB, Total Negative (Negative); Hepatitis A IgM Antibody Negative (Negative); Hepatitis B Core AB IgM Negative (Negative); Hepatitis B Core Ab Total Negative (Negative); Hepatitis C Ab <0.1 s/co ratio (0.0-0.9)
[2019-03-08 12:49] LABS: Hep B Surface Antibodies Non Reactive (.)
== END ==
PROVIDERS: Family Provider Family Medicine Geriatric Medicine; PCP Family Medicine Geriatric Medicine; Visit Provider Student in an Organized Health Care Education/Training Program
DX: C85.89 Other specified types of non-Hodgkin lymphoma, extranodal and solid organ sites (principal); N18.3 Chronic kidney disease, stage 3 (moderate)
CPT/HCPCS: 80053; 83615; 83970; 84100; 85025; 86704; 86705; 86706; 86708; 86709; 86803; 87340

== ENCOUNTER 2019-03-07 09:30 | Inpatient (IN) | payer MEDICARE, OTHER, SELFPAY ==
[2018-08-15 14:12] VITALS: BMI 28.9
[2019-02-14 13:39] VITALS: BMI 29.3
[2019-03-07] VITALS (10 sets, daily range): BP systolic 122–151; BP diastolic 58–79; PULSE 67–103; RESP 16–23; TEMP 36.7–37.8; O2SAT 90–100; BMI 29.6; BMI 28.4; BMI 28.5
--- NOTE | 2019-03-07 09:54 | CT_ITS ---
STUDY: CT BRAIN WITHOUT CONTRAST REASON FOR EXAM: Male, 78 years old. Headache, increased confusion, recently dx brain tumor RADIATION DOSAGE (If Supplied By Facility): CTDIvol = ( 44.99 ) mGy, DLP = ( 812.98 ) mGycm TECHNIQUE: Transaxial CT imaging of the brain was performed without administration of intravenous contrast material. Individualized dose optimization techniques were used for this CT. COMPARISON: 02/07/2019 FINDINGS: Normal soft tissue structures. Normal calvarium. Sequela from previously noted hemorrhage in the posterior corpus callosum. No acute hemorrhage or residual hematoma noted. There is mild cerebral atrophy with widening of the extra-axial spaces and ventricular dilatation. There are areas of decreased attenuation within the white matter tracts of the supratentorial brain, consistent with microvascular disease changes. Normal basal ganglia and thalami. Normal brainstem. There is mild cerebellar atrophy. Normal visualized paranasal sinuses. CT/Brain/Head without Contrast IMPRESSION: Chronic involutional changes of the brain. No acute hemorrhage Previously noted acute hemorrhage involving the posterior corpus callosum has resolved. Sequela from hemorrhage noted. Electronically Signed: Armando Welch MD at 11:28 EST , Service support ,
--- NOTE | 2019-03-07 09:55 | EKG12_ITS ---
Test Reason : HEADACHE Blood Pressure : / mmHG Vent. Rate : 075 BPM Atrial Rate : 075 BPM P-R Int : 260 ms QRS Dur : 140 ms QT Int : 428 ms P-R-T Axes : 033 -66 122 degrees QTc Int : 477 ms Atrial-sensed ventricular-paced rhythm with prolonged AV conduction Abnormal ECG Confirmed by ELSIE BEARDEN, WOJCIECH ([id number]), news copy editor CHRIS PEREIRA ([id number]) on 03/11/2019 12:27:44 PM Referred By: MANISH Confirmed By:WOJCIECH ZIMMERMAN MD
--- NOTE | 2019-03-07 10:00 | RAD_ITS ---
STUDY: X-RAY CHEST REASON FOR EXAM: Male, 78 years old. SOB, CONFUSION; COLON CA, LUNG CA- REMOVAL OF LEFT UPPER LOBE, CABG- AORTIC VALVE Replaced; dx WITH BRAIN TUMOR 6 WEEKS AGO. TECHNIQUE: Single AP portable view of the chest. COMPARISON: 03/22/2015 FINDINGS: Stable appearance of a left subclavian pacemaker, EKG leads overlie the chest. Right lung remains clear and well expanded. There is stable elevation of the left hemidiaphragm which may be due to postsurgical change. There is no superimposed process in the visualized left lung. There is no demonstrated pleural abnormality. Sternal cerclage wires and vascular clips are present from a prior sternotomy and coronary artery bypass graft procedure (CABG). Normal mediastinum and ruth. Normal visualized pulmonary arteries. Normal visualized aortic arch and descending thoracic aorta. There are diffuse degenerative changes of the visualized thoracic spine. There is degenerative osteoarthritis of the bilateral shoulders. There is no demonstrated abnormality of the visualized soft tissue structures of the upper abdomen. RAD/Chest 1 View (Portable) IMPRESSION: Likely postsurgical changes in the left hemithorax with stable elevation of the left hemidiaphragm, no superimposed acute pulmonary process Electronically Signed: Armando Welch MD at 10:38 EST , Service support ,
--- NOTE | 2019-03-07 10:00 | ED.VISSUMM ---
- ER Visit Summary Date of Service: 03/07/19 Chief Complaint: Headache, confusion History of Present Illness: The patient is a 78 M presenting per EMS with confusion. Per daughter patient complained of headache earlier today. Patient does not recall this. He denies current headache. He was diagnosed 6 weeks ago with a brain tumor. 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 He was on Decadron taper which was discontinued on 03/05. Daughter states when he went from 2 per day to 1 per day he started having increasing confusion. When the medication was stopped on 03/05 his confusion worsened. He has had unsteady gait. No recent falls. He was scheduled to see his oncologist today. Daughter was concerned about his confusion and called EMS. Physical Examination: Vitals are stable. Patient is afebrile. Alert no acute distress. HEENT exam is unremarkable. Neck is supple. No meningismus Lungs are clear and equal bilaterally. Heart is regular rate and rhythm. Abdomen is soft nontender nondistended. Extremities are unremarkable. Skin is warm and dry. No focal neurologic deficit. Alert and oriented x2 Remainder of exam is unremarkable. Emergency Department Course and Treatment: EKG is paced at rate of 75. Chest x-ray shows likely postsurgical changes in the left hemithorax with stable elevation of the left hemidiaphragm, no superimposed acute pulmonary process. CT head shows chronic involutional changes of the brain. No acute hemorrhage Previously noted acute hemorrhage involving the posterior corpus callosum has resolved. Sequela from hemorrhage noted. Further information was provided by both the emergency room physician and the career and technology education teacher. The previous study viewed for comparison was only the postcontrast study. On the original report of this exam, that was referred to as a hemorrhage. However, comparison with the noncontrasted image. For the contrasted images show that this was an enhancing lesion. It is subsequently been biopsied and proven to be a B-cell lymphoma. Today''s examination does not show significant increase in size or edema when compared to the original noncontrasted study of 02/07/2019. CBC normal except platelet 114. Chemistries show glucose 107, BUN 39, creatinine 1.56. Urinalysis normal. Influenza negative. Discussed with Dr. Tomlinson. Patient will be given Decadron. Discussed with hospitalist for admission. Disposition: Admission Impression: Headache, confusion This note was generated with Dragon dictation software. It may contain incorrect words, spelling, and punctuation that were not noted in review of the chart prior to signing ED Disposition - Plan for ED Patient:
[2019-03-07 10:42] LABS: Absolute Lymphocyte Count 1.32 X10^3/uL (0.83-4.51); Absolute Neutrophil Count 6.7 X10^3/uL (2.0-7.7); Basophil# 0.01 X10^3/uL; Basophil% 0.1 % (0-1); Eosinophil# 0.08 X10^3/uL; Eosinophils% 0.9 % (0-5); Hematocrit 44.8 % (40-54); Hemoglobin 14.8 g/dL (13.0-16.5); Lymphocyte # 1.32 X10^3/ul (4.0); Lymphocyte % 15.2 % (19-41); Mean Corpuscular Hgb 31.1 pg (27.0-32.0); Mean Corpuscular Volume 94.1 fL (80-94); Mean Platelet Vol. 10.2 fl (6.2-12.0); Monocyte% 5.8 % (0-10); NRBC Flagged by Analyzer 0 % (0-5); Neutrophil # 6.73 X10^3/uL (2.7-7.7); Neutrophil % 77.4 % (47-70); Platelet Count 114 K/mm3 (150-450); RBC Distribution Width CV 13.8 % (11.6-14.6); RBC Distribution Width SD 47.8 fl (35.1-43.9); Red Blood Count 4.76 M/mm3 (4.6-6.2); White Blood Count 8.7 K/mm3 (4.4-11.0)
[2019-03-07 10:52] LABS: Anion Gap 6 (5-15); BUN 39 mg/dL (7-18); Calcium,Total 8.9 mg/dL (8.5-10.1); Chloride 102 mmol/L (98-107); Creatinine, Serum 1.56 mg/dL (0.70-1.30); EST Glomerular Filtration Rate 46 mL/min (>60); Est Glom Filt Rate - Afr Amer 56 mL/min (>60); Estimated Creatinine Clearance 39.03 ml/min; Glucose 107 mg/dL (74-106); Potassium 4.4 mmol/L (3.5-5.1); Sodium Level 140 mmol/L (136-145)
[2019-03-07 13:09] LABS: Bacteria 0 SEEN /hpf (None Seen); Mucous, Urine 0 SEEN /hpf (<or=2+); Red Blood Cells-Urine 0 SEEN /hpf (0-5); Squamous Epithelial Cells - UA 0 SEEN /hpf (0-5); White Blood Cells 0 SEEN /hpf (0-5)
[2019-03-07 13:16] LABS: Color, Urine Yellow (Yellow); Glucose, Dipstick Normal (Normal); Ketone-Dipstick Negative (Negative); Leukocyte Esterase-Dipstick Negative /ul (Negative); Nitrite-Dipstick Negative (Negative); Occult Blood-Urine Negative /ul (Negative); Protein-Dipstick Negative (Negative); Urine Bilirubin Dipstick Negative (Negative); Urine Clarity Clear (Clear); Urine Urobilinogen Normal (Normal)
--- NOTE | 2019-03-07 13:27 | PCM.HP.STD ---
Problem List (1) Encephalopathy acute Status: Acute (2) Headache Status: Acute Qualifiers: Headache type: unspecified Headache chronicity pattern: unspecified pattern Intractability: not intractable Qualified Code(s): R51 - Headache (3) PRINCIPLE [employer]USTRIAL HYGIENIST lymphoma Status: Chronic (4) Diabetes mellitus, type II Status: Chronic Qualifiers: Diabetes mellitus residential insulin use: without salvage determiner use Diabetes mellitus complication status: with other specified complication Qualified Code(s): E11.69 - Type 2 diabetes mellitus with other specified complication (5) Atherosclerosis of coronary artery bypass graft without angina pectoris Status: Chronic Qualifiers: [place] vs. transplanted heart: [place] heart Qualified Code(s): I25.810 - Atherosclerosis of coronary artery bypass graft(s) without angina pectoris Comment: CABG x4- UMANZOR to LAD, SVG to the high lateral and lateral CX, SVG to PDA of the RCA 03/31/06 (6) Hyperlipidemia Status: Chronic Qualifiers: Hyperlipidemia type: unspecified Qualified Code(s): E78.5 - Hyperlipidemia, unspecified (7) Hypertension Status: Chronic Qualifiers: Hypertension type: essential hypertension Qualified Code(s): I10 - Essential (primary) hypertension (8) H/O aortic valve replacement Status: Chronic Comment: St. 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 (10) Presence of cardiac pacemaker Status: Chronic (11) PAD (peripheral artery disease) Status: Chronic History of Present Illness Date of Admission: 03/07/19 Chief Complaint: Headache, confusion, recent Dx brain tumor 6 weeks prior The patient is a 78 y/o M w/ PMHx: CKD stage III (Baseline Cr 1.7), Valvular Heart Disease s/p AVR, Hx Complete HB s/p pacemaker, CAD s/p CABG x 4 and PCI, PAD s/p iliac stent placement, Diabetes mellitus type II, Hx CVA, HTN, HLD, Dementia unclear type with unclear behavioral disturbance history, Hx Lung CA left upper lobe lobectomy and lymph node dissection and pathology was consistent with a 1.5 x 1.2 x 1.0 cm grade 2 adenocarcinoma, Recent Dx Primary [employer] HYGI[employer]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 s/p CT head with contrast (02/07/2019) and biopsy (02/19/2019) with completion of a steroid taper on 03/05/2019 with increased appetite, weight gain as well as some fluid retention and insomnia associated with no headache at that time her pain at the biopsy site with occasional imbalance issues when walking and noted 3 falls per oncology most recently approximately 1-1/2 weeks prior to current presentation who now presents to the [facility] ED on 03/07/18 with history of recurrent confusion, reported headache earlier in the day, noted to have grabbed his head but denies now; however, confused with unsteady gait ongoing onset immediately following recent wean off steroids. Patient unable to give location or details regarding recent earlier headache complaint and comfortable appearing in the ED. Work-up in the ED included T 98.8, heart rate 69, BP 148/63, respiratory rate 23, 98% on room air, CBC with WBCs 8.7, hemoglobin 14.8, platelet 114 without market shift, BMP with BUN/creatinine 39/1.56, glucose 107, urinalysis unremarkable, chest x-ray with postsurgical changes left hemithorax with stable elevation of the left hemidiaphragm with no superimposed acute cardiopulmonary findings, CT brain with chronic involutional changes with no evidence of acute hemorrhage with previously noted resolution of prior acute findings involving the posterior corpus callosum with sequela. In the ED patient administered Decadron 8 mg p.o. x1. ED discussed case with Dr. Tomlinson and requested administration Decadron and admission to [facility]. Past Medical History Past Medical History (Chronic Problems): Chronic Problems (Last Reviewed 03/07/19 @ 13:48 by Carmina Doty) Diabetes mellitus, type II (Chronic) PR[employer]LE [employer]RI[employer] HYGIENIST lymphoma (Chronic) Presence of stent in coronary artery (Chronic) PTCA/stent of the mid RCA 04/10/02 Atherosclerosis of coronary artery bypass graft without angina pectoris (Chronic) CABG x4- UMANZOR to LAD, SVG to the high lateral and lateral CX, SVG to PDA of the RCA 03/31/06 Hyperlipidemia (Chronic) Hypertension (Chronic) H/O aortic valve replacement (Chronic ~03/31/06) St. 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) Presence of cardiac pacemaker (Chronic) S/P insertion of iliac artery stent (Chronic) PAD (peripheral artery disease) (Chronic) Medical History: Medical History (Last Reviewed 03/07/19 @ 13:48 by Carmina Doty) Atherosclerosis of coronary artery bypass graft without angina pectoris (Chronic) I25.810 CABG x4- UMANZOR to LAD, SVG to the high lateral and lateral CX, SVG to PDA of the RCA 03/31/06 Hyperlipidemia (Chronic) E78.5 Hypertension (Chronic) I10 Paroxysmal atrial tachycardia (Acute) I47.1 Tachycardia (Acute) R00.0 Nonrheumatic aortic valve disorder (Acute) I35.9 Intermittent claudication (Acute) I73.9 Carotid bruit (Acute) R09.89 Left atrial mass (Acute) I51.9 AV block, 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) I44.2 Presence of cardiac pacemaker (Chronic) Z95.0 PAD (peripheral artery disease) (Chronic) I73.9 Diabetes E11.9 CVA (cerebral vascular accident) I63.9 Encephalopathy G93.40 PAOD (peripheral arterial occlusive disease) I77.9 Vascular dementia F01.50 White matter disease R90.82 Allergies No Known Allergies Allergy (Verified 03/07/19 09:38) Home Medications: Ambulatory Orders Medication Instructions Recorded Doxycycline [Vibramycin] 1 tab PO DAILY 12/31/12 Nitroglycerin [Nitrolingual [place]] 0.4 mg SL PRN PRN 12/31/12 metoprolol tartrate 50 mg tablet 50 mg PO BID #180 tab 07/31/18 ramipril 5 mg capsule 5 mg PO DAILY #90 cap 08/15/18 Atorvastatin Calcium [Lipitor] 40 mg PO QHS 02/12/19 Pioglitazone [Actos] 30 mg PO DAILY 02/12/19 Esomeprazole Mag Trihydrate 20 mg PO DAILY 02/14/19 [Nexium] Surgical History: Surgical History (Last Reviewed 03/07/19 @ 13:48 by Carmina Doty) Presence of stent in coronary artery (Chronic) Z95.5 PTCA/stent of the mid RCA 04/10/02 H/O aortic valve replacement (Chronic) Onset Date: ~03/31/[address]. Live Bicor tissue valve 21mm 03/31/06 S/P insertion of iliac artery stent (Chronic) Z95.828 Aortocoronary bypass status Onset Date: ~03/31/06 Z95.1 CABG x4- UMANZOR to LAD, SVG to the high lateral and lateral CX, SVG to PDA of the RCA 03/31/06 Postsurgical percutaneous transluminal coronary angioplasty (PTCA) status Z98.61 PTCA/stent of the mid RCA 04/10/02 History of cholecystectomy Z90.49 History of lobectomy of lung Z90.2 Lt Upper Lobe @ [facility] 12/23/15 History of right hemicolectomy Z90.49 Surgical History: - - CABG x4, PCI, AVR, cholecystectomy, right hemicolectomy, left upper lobectomy, pacemaker placement, iliac artery stent, recent brain biopsy. Psychiatric History: No pertinent psych hx Lives: Spouse/ Significant Other Smoking Status: Former smoker Tobacco Use: Non-smoker Alcohol: None Drugs: None - *Family History Maternal Family History: Family History (Last Reviewed 03/07/19 @ 13:48 by Carmina Doty) Mother Diabetes Dementia Hypertension Father Colon cancer History Items: Diabetes, Dementia, Heart Disease, Hypertension Paternal Family History: Family History (Last Reviewed 03/07/19 @ 13:48 by Carmina Doty) Mother Diabetes Dementia Hypertension Father Colon cancer History Items: - - Patient with paternal family history of colon cancer. Review of Systems Constitutional: Reports: Weakness, Fatigue. Denies: Anorexia, Chills, Fever, Malaise, Weight Change HEENT: Reports: Head Aches. Denies: Sinus Congestion, Sinus Drainage Cardiovascular: Denies: Chest Pain, Palpitations Respiratory: Denies: Cough, Shortness of breath at rest, Sputum production Gastrointestinal: Reports: Nausea. Denies: Abdominal Pain, Vomiting Genitourinary: Denies: Dysuria Musculoskeletal: Reports: Joint Pain. Denies: Joint Tenderness Skin: Denies: Rash, Wounds Neurological: Reports: Balance problems, Confusion. Denies: Focal weakness, Numbness, Tingling Psychiatric: Reports: - - Insomnia.. Denies: Anxiety, Depression, Homicidal Ideations, Suicidal Ideations Hematologic/ Lymphatic: Denies: Easy Bruising, Easy Bleeding VTE Information - Inpt Only VTE Present on Admission: No VTE Mechan Device Prophylaxis: SCD's VTE Pharm Prophylaxis ordered?: Yes Patient Problems: Active and Suspected Problems (Last Reviewed 03/07/19 @ 13:48 by Carmina Doty) Encephalopathy acute (Acute) Headache (Acute) Subjective: Seated upright in the bed, calm appearing, initially per discussion with ED physician able to give his birthdate and year but upon hospitalist evaluation cannot give year, month but able to carry on conversation appropriately, no acute distress. Objective: Physical Examination: General: awake, alert, oriented to the fact that he is in the hospital and some remote events but cannot give month, year, recent events, remains cooperative, seated upright in the ED bed, no acute distress, calm, denies any headache. Skin: normal color, turgor, no icterus, cyanosis. HEENT: AT/NC, EOMI, PERRLA, mildly dry MM, no carotid bruits or JVD noted; however thickened neck makes examination difficult. Lungs: Diminished breath sounds, greater bilateral bases, decreased effort, no rales, ronchi or wheezing. Heart: Regular rate and rhythm; no gallop, rub audible. Abdomen: soft, overweight, NTTP, ND, normal BS, no HSM. Extremities: no cyanosis, clubbing, bilateral lower extremity pedal and ankle edema. Neurological: patient awake, alert, oriented as noted; cognitive function not baseline intact; pupils equally reactive to light and accomodation; cranial nerves II-XII grossly normal, moving all 4 extremities, no focal deficits, strength moderately global decreased secondary to acute presentation and complaints. Psychiatric: affect appears fatigued, mildly flat, no acute evidence of depressive or anxiety feelings. - Physical Exam Vitals/I&O's: Vital Signs Temp Pulse Resp BP Pulse Ox 98.8 F 74 19 H 125/58 H 98 03/07/19 09:31 03/07/19 12:33 03/07/19 12:33 03/07/19 12:33 03/07/19 12:33 Oxygen Delivery Method Room Air Weight: 200 lb 9.93 oz Body Mass Index (BMI) 29.6 Microbiology Past 72 Hours 03/07/19 10:05 Mucosa - Nose Influenza Types A,B Direct FA (ANGEL) - Final Laboratory Results 03/07/19 10:30: WBC 8.7, RBC 4.76, Hgb 14.8, Hct 44.8, MCV 94.1 H, MCH 31.1, MCHC 33.0, RDW Std Deviation 47.8 H, RDW Coeff of Ni 13.8, Plt Count 114 L, MPV 10.2, Immature Gran % (Auto) 0.600, Neut % (Auto) 77.4 H, Lymph % (Auto) 15.2 L, [place] % (Auto) 5.8, Eos % (Auto) 0.9, Baso % (Auto) 0.1, Absolute Neuts (auto) 6.7, Absolute Lymphs (auto) 1.32, Nucleated RBC % 0 03/07/19 10:30: Sodium 140, Potassium 4.4, Chloride 102, Carbon Dioxide 32.0, Anion Gap 6, BUN 39 H, Creatinine 1.56 H, Estim Creat Clear Calc 39.03, Est GFR (MDRD) Af Amer 56 L, Est GFR (MDRD) Non-Af 46 L, BUN/Creatinine Ratio 25.0 H, Glucose 107 H, Calcium 8.9 03/07/19 13:00: Urine Color Yellow, Urine Clarity Clear, Urine pH 7.0, Ur Specific Jeannette 1.010, Urine Protein Negative, Urine Glucose (UA) Normal, Urine Ketones Negative, Urine Occult Blood Negative, Urine Nitrite Negative, Urine Bilirubin Negative, Urine Urobilinogen Normal, Ur Leukocyte Esterase Negative, Urine RBC Pending, Urine WBC Pending, Ur Squamous Epith Cells Pending, Urine Bacteria Pending, Urine Mucus Pending Assessment/Plan All Active Problems (Last Reviewed 03/07/19 @ 13:48 by Carmina Doty) Encephalopathy acute (Acute) Headache (Acute) Paroxysmal atrial tachycardia (Acute) Tachycardia (Acute) Nonrheumatic aortic valve disorder (Acute) Intermittent claudication (Acute) Carotid bruit (Acute) Left atrial mass (Acute) The patient is a 78 y/o M w/ PMHx: CKD stage III, Valvular Heart Disease s/p AVR, Hx Complete HB s/p pacemaker, CAD s/p CABG x 4 and PCI, PAD s/p iliac stent placement, Diabetes mellitus type II, Hx CVA, HTN, HLD, Dementia unclear type with unclear behavioral disturbance history, Hx Lung CA left upper lobe lobectomy w/ grade 2 adenocarcinoma, Recent Dx Primary [employer]LE [employer]RIAL HYGIEN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 s/p biopsy (02/19/2019) with completion of a steroid taper on 03/05/2019 with increased appetite, weight gain as well as some fluid retention and insomnia associated with no headache at that time her pain at the biopsy site with occasional imbalance issues when walking and noted 3 falls per oncology most recently approximately 1-1/2 weeks prior to current presentation who now presents to the [facility] ED on 03/07/18 with history of recurrent confusion, reported headache earlier in the day, noted to have grabbed his head but denies now; however, confused with unsteady gait ongoing onset immediately following recent wean off steroids. 1. 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 Tomlinson, following w/ Dr. Ricardo, most recent visit 03/05/19 with last dose steroids at that time, noted plan for PET scan 03/11/18, LP and analysis 03/12/18 as well as referral to Ophthalmology outpatient with initially planned med onc evaluation 03/07/18; however, missed visit secondary to ED presentation. Per discussion with Dr. Tomlinson, will admit to PCU, maintain on telemetry, continue neurochecks, fall precautions, per his specific request will obtain CT neck, chest and abdomen and pelvis to assist with staging to assess if patient is able to remain at [facility] or if further intervention at tertiary facility needs to be initiated, maintain on Decadron 4 mg IV every 6 hours, PT/OT/case management consultations for discharge planning. 2. Chronic Kidney Disease Stage III: Admission BUN/Cr 39/1.56, baseline renal function 1.7, repeat BMP in AM and closely given IV contrast usage per oncology request. 3. Diabetes mellitus type II: Hold oral home regimen, ADA diet, accu checks w/ ISS, given concurrent high-dose steroids may need to alter regimen and place on scheduled insulin therapy temporarily. 4. Valvular Heart Disease: s/p AVR St. Live Bicor 2006. 5. Dementia, Unclear Type with Unclear Behavioral Disturbance History: Continue home aricept regimen. 6. CAD: s/p CABG x 4 and PCI, continue Eliquis, statin, metoprolol and ACEI. 7. PAOD: s/p illiac artery stent, continue Eliquis, statin, metoprolol and ACEI. 8. History of 3rd degree HB: s/p pacemaker placement. 9. Hypertension: Continue home regimen including metoprolol, ramipril, PRN hydralazine. 10. Hyperlipidemia: Continue home statin regimen. 11. Hx CVA: Continue Eliquis, statin, BP regimen, DM regimen. 12. GERD: Continue home PPI. 13. DVT Prophylaxis: SCDs, heparin (Radiology read noted hemorrhage from prior, incorrect read, findings were his mass and CT was compared to prior to CTA). 14. CODE status: Patient's daughter who is a nurse is present and is his healthcare power of automotive glass mechanic, also present, living will in place, discussed CODE status at length including difference between FULL code, DNR-CCA and DNR-CC status. Following discussions about the differences in these status, requested DNR-CCA, no intubation status. Advanced Care Planning Face to Face Time: 17 minutes. Code Visit Inpatient E&M: 43688 Init Hosp L3 Procedures: 97784 Advncd Care Plan 30 Min
--- NOTE | 2019-03-07 14:00 | NURSING ---
PCU WHITE HEADACHE, CONFUSION
[2019-03-07] MEDS: dexAMETHasone 4 MG Tablet 8 MG PO (14:13)
--- NOTE | 2019-03-07 14:28 | CT_ITS ---
STUDY: CT CHEST WITH CONTRAST REASON FOR EXAM: Male, 78 years old. BCELL LYMPHOMA. Hx of brain tumor with increased confusion and headacheLUL LOBECTOMY. Prior cholecystectomy and rt hemicolectomy. Pt has heart stent,iliac stent, pacemaker/defib and CABG x 4. Diabetes and HTN. RADIATION DOSAGE (If Supplied By Facility): CTDIvol = ( 20.09 ) mGy, DLP = ( 2598.27 ) mGycm TECHNIQUE: Transaxial imaging was performed following intravenous administration of Oral and amp; IV Gastrografin and amp; 75ML ISOVUE 300. Individualized dose optimization techniques were used for this CT. COMPARISON: 05/23/2017 FINDINGS: Left subclavian pacemaker appears Mild emphysematous changes. Changes from left upper lobectomy. Tiny left-sided pleural effusion and scarring. No noncalcified nodule or mass. Normal heart and pericardium. Normal mediastinum. Normal hilar regions. Normal enhanced pulmonary arteries. Normal aorta arch and descending thoracic aorta. Normal osseous structures. There is no demonstrated abnormality of the visualized upper abdomen. CT/Chest WITH Contrast IMPRESSION: No change from 05/23/2017. Electronically Signed: Tom Kenny MD at 14:02 EST Tel , Service support ,
--- NOTE | 2019-03-07 14:28 | CT_ITS ---
STUDY: CT SOFT TISSUE NECK WITH CONTRAST REASON FOR EXAM: Male, 78 years old. BCELL LYMPHOMA. Hx of brain tumor with increased confusion and headacheLUL LOBECTOMY. Prior cholecystectomy and rt hemicolectomy. Pt has heart stent,iliac stent, pacemaker/defib and CABG x 4. Diabetes and HTN. RADIATION DOSAGE (If Supplied By Facility): CTDIvol = ( 20.09 ) mGy, DLP = ( 2598.27 ) mGycm TECHNIQUE: The patient was scanned in a multi-detector CT scanner. High resolution transaxial imaging was performed following intravenous administration of Oral and amp; IV Gastrografin and amp; 75ML ISOVUE 300. Sagittal and coronal images were reconstructed. Individualized dose optimization techniques were used for this CT. COMPARISON: None. FINDINGS: Normal bilateral parotid glands. Normal bilateral engineering aide spaces. Normal bilateral parapharyngeal spaces. Normal bilateral carotid spaces. Normal bilateral sublingual and submandibular glands and spaces. Normal visualized nasopharynx. Normal retropharyngeal space. Normal perivertebral space. Normal visualized bilateral faucial tonsils. The visualized tongue, tongue base and oropharynx are normal. The visualized cervical lymph nodes (levels I-) are within normal size limits, and maintain normal morphology. There is no demonstrated solid or cystic mass lesion. There is no abnormal contrast enhancement. Normal epiglottis, bilateral vallecula and hypopharynx. The pre-epiglottic and paraglottic adipose spaces are normal. Normal visualized bilateral piriform sinuses, aryepiglottic folds, vocal cords, and arytenoid-cricoid articulations. Normal subglottic trachea. Normal bilateral lobes of the thyroid gland. Normal visualized pulmonary apices. Normal visualized paranasal sinuses. Normal visualized cervical spine. CT/Soft Tissue Neck WITH Contrast IMPRESSION: Normal enhanced CT examination of the soft tissues of the neck. Electronically Signed: Tom Kenny MD at 14:07 EST Tel , Service support ,
--- NOTE | 2019-03-07 14:28 | CT_ITS ---
STUDY: CT ABDOMEN AND PELVIS WITH CONTRAST REASON FOR EXAM: Male, 78 years old. BCELL LYMPHOMA. Hx of brain tumor with increased confusion and headacheLUL LOBECTOMY. Prior cholecystectomy and rt hemicolectomy. Pt has heart stent,iliac stent, pacemaker/defib and CABG x 4. Diabetes and HTN RADIATION DOSAGE (If Supplied By Facility): CTDIvol = ( 20.09 ) mGy, DLP = ( 2598.27 ) mGycm TECHNIQUE: Transaxial images were obtained from the dome of the diaphragm to the symphysis pubis with oral contrast. Oral and amp; IV Gastrografin and amp; 75ML ISOVUE 300 was administered. Sagittal and coronal images were reconstructed. Individualized dose optimization techniques were used for this CT. COMPARISON: 08/23/2017 FINDINGS: The visualized lung bases are unremarkable. The visualized portions of the heart are within normal limits. Normal liver. There is non-visualization of the gallbladder, which may be secondary to either contraction or a prior cholecystectomy. Normal spleen. Normal pancreas. Normal bilateral adrenal glands. Normal right kidney. Normal left kidney. Normal visualized stomach. Normal small intestine. There are multiple colonic diverticula consistent with diverticulosis. There is non-visualization of the appendix. There is diffuse atherosclerotic calcification of the abdominal aorta, without a demonstrated aneurysm. Normal inferior vena cava. Normal retroperitoneum. Normal urinary bladder. Normal abdominal wall. Normal osseous structures. CT/Abdomen/Pelvis WITH Contrast IMPRESSION: No acute abnormality Electronically Signed: Tom Kenny MD at 13:50 EST Tel , Service support ,
[2019-03-07 14:47] LABS: Magnesium 2.1 mg/dL (1.6-2.6); Phosphorus 4.1 mg/dL (2.5-4.9)
--- NOTE | 2019-03-07 15:20 | CHAPLAIN ---
Type of Pastoral Visit _x__ Initial Visit ___ Follow-up Visit ___ On-call Visit ___ General Patient Visit ___ Spiritual Assessment ___ Family Conference ___ Bereavement ___ Rapid Response ___ Code Blue ___ Other (describe below) Pastoral Care Referral From ___ Patient ___ Family ___ Nurse ___ Physician ___ [employer] C[employer] Developer ___ Director Of Corporate Sponsorships _x__ Other (describe below) Sacrament/Intervention ___ Active listening ___ Anointing ___ Roman Catholic ___ Bereavement ___ Communion ___ Liseth exploration ___ ___ Life review ___ Prayer ___ Reconciliation ___ Sacrament of Sick _x__ Supportive presence ___ Wedding ___ Other (describe below) Pastoral Comments patient was just admitted and met this family; made offer of support as needed
[2019-03-07] MEDS: 0.9% Saline Lock 10 ML Syringe IV (15:48)
[2019-03-07] MEDS: 0.9% Normal Saline 1,000 ML 125 ML IV (15:48)
[2019-03-07 16:36] LABS: Bedside Glucose 84 mg/dL (70-110)
--- NOTE | 2019-03-07 17:04 | CON.PCM_ITS ---
Subjective Date of Service:: 03/07/19 Chief Complaint: DLBCL History of Present Illness: Mr. 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 Patient presented to his primary care provider with acute complaints of confusion and headache x4 days in early February. On 02/07/[address] brain with with contrast demonstrated an enhancing mass measuring 2.4 x 5.8 cm in the posterior roof of the corpus callosum with evidence of surrounding white matter edema in the left posterior parietal occipital lobes. Mass was consistent with malignant neoplasm. There was also mild cerebral atrophy with widening of the extra-axial spaces and ventricular dilation. Patient was admitted to [facility] 02/18/2019 and underwent biopsy of the corpus colossal lesion on 02/19/2019. Pathology on initial intraoperative assessment was consistent with glioblastoma. However, final pathology demonstrated aggressive B-cell lymphoma (BCL-2 greater than 90%, see [place] 50%, BCL 6-week and variable staining of about 40%). He was discharged home on 02/20/2019 and underwent radiation oncology consultation with Dr. Ricardo on 03/05/2019. Patient was scheduled for complete staging by way of PET CT scan, CSF evaluation labs and ophthalmology exam. Tentatively he was scheduled for PET/CT on 03/11/2019. The patient was scheduled for new patient consultation with Dr. Tomlinson in clinic today however patient's daughter called reporting abrupt mental status changes in the patient was evaluated acutely in the ED. States upon discharge from [facility] they were given a prescription for dexamethasone taper and patient completed that taper yesterday. Patient's daughter describes witnessed decline in functionality and mental capacity after completing course of steroids. Upon entering the room the patient is sitting upright in bed visiting with family. Family reports a vast improvement like night and day of his mentation subsequent to receiving dexamethasone in the ED.. Past Medical History: Chronic Problems (Last Reviewed 03/07/19 @ 13:48 by Carmina Doty) Diabetes mellitus, type II (Chronic) BLIND LACER lymphoma (Chronic) Presence of stent in coronary artery (Chronic) PTCA/stent of the mid RCA 04/10/02 Atherosclerosis of coronary artery bypass graft without angina pectoris (Chronic) CABG x4- UMANZOR to LAD, SVG to the high lateral and lateral CX, SVG to PDA of the RCA 03/31/06 Hyperlipidemia (Chronic) Hypertension (Chronic) H/O aortic valve replacement (Chronic ~03/31/06) St. 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) Presence of cardiac pacemaker (Chronic) S/P insertion of iliac artery stent (Chronic) PAD (peripheral artery disease) (Chronic) Past Medical/Surgical History: Past Medical History - Most Recent Inpatient Visit Past Medical History Start: 03/07/19 14:27 Text: Status: Complete Freq: ONCE Protocol: Document 03/07/19 14:27 DARA (Rec: 03/07/19 14:38 DARA [id number]) BMI Required to complete PMH What is Patient's BMI 28.5 Past Medical History Unable History Recalled No Query Text:Pt Unable/Family Not Present Neurologic Medical History Hx Stroke/TIA No Hx Dementia/Alzheimer's No Hx Parkinson's Disease No Hx Seizures No Hx Multiple Sclerosis No Hx Migraines No Cardiac Medical History VTE Present on Admission No Hx of Deep Vein Thrombosis/VTE/PE No Hx Hypertension Yes Hx Chest Pain/Angina No Hx Heart Attack Yes Hx Cardiac Surgery/Stents/Etc. Yes Hx Heart Failure No Hx Pacemaker/AICD Yes Hx Irregular Heartbeat and/or Afib No Hx Anticoagulant Therapy Yes Query Text:(Coumadin, Aspirin, Plavix, Xarelto, etc.) Hx Pain in Legs when Walking/Leg Cramps No Respiratory Medical History Hx COPD No Hx Emphysema No Hx Smoking Yes Smoking Status Former smoker Tobacco Use Cigarettes Years Smoking 60 Packs Smoked per Day 1.5 Hx Smoking Cessation Date 03/06/15 Hx Smoking Cessation Counseling No Hx Tobacco Use in last 12 months Yes Sent to [facility] Yes Hx of Pipe Smoking No Hx of Cigar Smoking No Hx Sleep Apnea Yes: LUNG CA, REMOVAL OF TONG CPAP No BIPAP No STOP Results Positive GI Medical History Hx Ulcer No Hx Hepatitis No Hx Cirrhosis No Hx GI Bleed No Hx Unplanned Weight Loss No Genitourinary Medical History Indwelling Catheter in Place on Arrival/ No Admission Hx Renal Disease No Hx Dialysis No Musculoskeletal History Hx Arthritis No Hx Rheumatoid Arthritis No Endocrine Medical History Hx Diabetes Yes Hx Thyroid Disease No Hematologic Medical History Hx of Blood Transfusion No Hx of Transfusion in last 3 Months No Ever experience any problems with No transfusion(s)? Hx of Preganancy in last 3 Months N/A Nurse Filling Out Transfusion & JLAMP Questions: Date: 03/07/19 Time: 14:37 Psycho/Social Medical History Hx Depression No Hx Anxiety No Hx Behavior Disorder No Hx Alcohol Use No Hx Substance Use No Other Medical History Hx Blood Disorders No Hx Anemia No Hx Cancer Yes: colon carcinoma, RESECTION, TONG REMOVED LUNG CA Hx Drug Resistant Organism No Wound/Pressure Injury Present on Arrival No /Admission Query Text:If yes, chart assessment in Shift/Clinical Findings Central Line/PICC/VAD Present on Arrival No /Admission Antibiotics within last 7 days? Yes Name of Antibiotic (Include dose/# days see home med list taken if known) Last day ATB taken 03/06/19 Risk for Readmission Number of Risk Factors 2 At Risk for Readmission Patient is At Risk For Readmission Patient is eligible for Call Back Y Past Medical History (Last Reviewed 03/07/19 @ 13:48 by Carmina Doty) Atherosclerosis of coronary artery bypass graft without angina pectoris (Chronic) Hyperlipidemia (Chronic) Hypertension (Chronic) Paroxysmal atrial tachycardia (Acute) Tachycardia (Acute) Nonrheumatic aortic valve disorder (Acute) Intermittent claudication (Acute) Carotid bruit (Acute) Left atrial mass (Acute) AV block, 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) Presence of cardiac pacemaker (Chronic) PAD (peripheral artery disease) (Chronic) Diabetes (Acute) CVA (cerebral vascular accident) (Acute) Encephalopathy (Acute) PAOD (peripheral arterial occlusive disease) (Acute) Vascular dementia (Acute) White matter disease (Acute) Past Surgical History (Last Reviewed 03/07/19 @ 13:48 by Carmina Doty) Presence of stent in coronary artery (Chronic) H/O aortic valve replacement (Chronic ~03/31/06) S/P insertion of iliac artery stent (Chronic) Aortocoronary bypass status (Chronic ~03/31/06) Postsurgical percutaneous transluminal coronary angioplasty (PTCA) status (Chronic) History of cholecystectomy (Resolved) History of lobectomy of lung (Resolved) History of right hemicolectomy (Resolved) Maternal Family History: Family History (Last Reviewed 03/07/19 @ 13:48 by Carmina Doty) Mother Diabetes Dementia Hypertension Father Colon cancer Family History: Diabetes, Dementia, Heart Disease, Hypertension Paternal Family History: Family History (Last Reviewed 03/07/19 @ 13:48 by Carmina Doty) Mother Diabetes Dementia Hypertension Father Colon cancer Family History: - - Patient with paternal family history of colon cancer. - Social History Lives: Spouse/ Significant Other Smoking Status: Former smoker Tobacco Use: Non-smoker Alcohol: None Drugs: None Allergies/Adverse Reactions: Allergy/AdvReac Type Severity Reaction Status Date / Time No Known Allergies Allergy Verified 03/07/19 13:48 Review of Systems Constitutional:: Reports: Weakness, Fatigue. Denies: Fever, Sweats, Appetite change, Chills Cardiovascular:: Denies: Chest pain, Palpitations, Dyspnea on exertion, Orthopnea, PND Respiratory: Denies: Cough, Hemoptysis, Shortness of Breath, Wheezing Gastrointestinal:: Denies: Abdominal pain, Nausea, Vomiting, Diarrhea, Constipation, Melena, Hematochezia Genitourinary: Denies: Dysuria, Hematuria, 15, Flank pain Musculoskeletal:: Denies: Back pain, Myalgia, Arthralgia Skin: Denies: Rash, Skin Changes, Wounds Neurological:: Reports: Headache. Denies: Dizziness, Visual changes, Tinnitus, Hearing loss Psychiatric: Denies: Anxiety, Depression, Homicidal Ideations, Suicidal Ideations Vital Signs Height 5 ft 9 in Weight: 192 lb 11.2 oz Weight in Pounds 192.7 lbs BMI 29.3 Pulse Ox 97 Temperature 98.8 F Pulse Rate 89 Respiratory Rate 20 Blood Pressure 133/63 Blood Pressure Position Semi-Fowlers - Physical Exam General: Alert, Oriented x3, No apparent distress HEENT: Atraumatic, PERRLA, EOMI, Normocephalic Oropharynx:: Negative for: Dry mucosa, Ulcerated lesions Neck:: Supple, Trachea midline. Negative for: JVD, bilateral Cardiac:: Regular rate, Regular rhythm, Normal S1, Normal S2 Lungs: Clear to auscultation, Excusion symmetrical. Negative for: Rhonchi, Wheezes Abdomen:: Bowel sounds x 4, Soft, Non-tender, Non-distended. Negative for: Hepatosplenomegaly Extremities:: Edema - Bilateral lower extremities +1 pitting, Capillary refill <3 sec. Negative for: Cyanosis, Calf tenderness Neurological: Neuro grossly intact Skin:: Negative for: Lesions, Rash, Petechiae, Ecchymosis Psychiatric:: Appropriate affect, Euthymic Lymphatics:: Negative for: Cervical lymphadenopathy, Supraclavicular lymphadenopathy, Axillary lymphadenopathy Laboratory Data: Microbiology 03/07/19 10:05 Influenza Types A,B Direct FA (ANGEL) - Final Mucosa - Nose Laboratory Tests 03/07/19 03/07/19 03/07/19 Range/Units 16:27 13:00 10:30 WBC (4.4-11.0) K/mm3 RBC (4.6-6.2) M/mm3 Hgb (13.0-16.5) g/dL Hct (40-54) % MCV (80-94) fL MCH (27.0-32.0) pg MCHC (32-36) g/dL RDW Std Deviation (35.1-43.9) fl RDW Coeff of Ni (11.6-14.6) % Plt Count (150-450) K/mm3 MPV (6.2-12.0) fl Immature Gran % (Auto) (0.0-0.9) % Neut % (Auto) (47-70) % Lymph % (Auto) (19-41) % [place] % (Auto) (0-10) % Eos % (Auto) (0-5) % Baso % (Auto) (0-1) % Absolute Neuts (auto) (2.0-7.7) X10^3/uL Absolute Lymphs (auto) (0.83-4.51) X10^3/uL Nucleated RBC % (0-5) % Sodium (136-145) mmol/L Potassium (3.5-5.1) mmol/L Chloride (98-107) mmol/L Carbon Dioxide (21.0-32.0) mmol/L Anion Gap (5-15) BUN (7-18) mg/dL Creatinine (0.70-1.30) mg/dL Estim Creat Clear Calc ml/min Est GFR (MDRD) Af Amer (>60) mL/min Est GFR (MDRD) Non-Af (>60) mL/min BUN/Creatinine Ratio (10-20) RATIO Glucose (74-106) mg/dL Calcium (8.5-10.1) mg/dL Phosphorus 4.1 (2.5-4.9) mg/dL Magnesium 2.1 (1.6-2.6) mg/dL Urine Color Yellow (Yellow) Urine Clarity Clear (Clear) Urine pH 7.0 (5.0 - 8.0) Ur Specific [place] 1.010 (1.002-1.030) Urine Protein Negative (Negative) mg/dl Urine Glucose (UA) Normal (Normal) mg/dl Urine Ketones Negative (Negative) mg/dl Urine Occult Blood Negative (Negative) /ul Urine Nitrite Negative (Negative) Urine Bilirubin Negative (Negative) mg/dL Urine Urobilinogen Normal (Normal) mg/dl Ur Leukocyte Esterase Negative (Negative) /ul Urine RBC 0 SEEN (0-5) /hpf Urine WBC 0 SEEN (0-5) /hpf Ur Squamous Epith Cells 0 SEEN (0-5) /hpf Urine Bacteria 0 SEEN (None Seen) /hpf Urine Mucus 0 SEEN (<or=2+) /hpf POC Glucose 84 (70-110) mg/dL 03/07/19 03/07/19 Range/Units 10:30 10:30 WBC 8.7 (4.4-11.0) K/mm3 RBC 4.76 (4.6-6.2) M/mm3 Hgb 14.8 (13.0-16.5) g/dL Hct 44.8 (40-54) % MCV 94.1 H (80-94) fL MCH 31.1 (27.0-32.0) pg MCHC 33.0 (32-36) g/dL RDW Std Deviation 47.8 H (35.1-43.9) fl RDW Coeff of Ni 13.8 (11.6-14.6) % Plt Count 114 L (150-450) K/mm3 MPV 10.2 (6.2-12.0) fl Immature Gran % (Auto) 0.600 (0.0-0.9) % Neut % (Auto) 77.4 H (47-70) % Lymph % (Auto) 15.2 L (19-41) % [place] % (Auto) 5.8 (0-10) % Eos % (Auto) 0.9 (0-5) % Baso % (Auto) 0.1 (0-1) % Absolute Neuts (auto) 6.7 (2.0-7.7) X10^3/uL Absolute Lymphs (auto) 1.32 (0.83-4.51) X10^3/uL Nucleated RBC % 0 (0-5) % Sodium 140 (136-145) mmol/L Potassium 4.4 (3.5-5.1) mmol/L Chloride 102 (98-107) mmol/L Carbon Dioxide 32.0 (21.0-32.0) mmol/L Anion Gap 6 (5-15) BUN 39 H (7-18) mg/dL Creatinine 1.56 H (0.70-1.30) mg/dL Estim Creat Clear Calc 39.03 ml/min Est GFR (MDRD) Af Amer 56 L (>60) mL/min Est GFR (MDRD) Non-Af 46 L (>60) mL/min BUN/Creatinine Ratio 25.0 H (10-20) RATIO Glucose 107 H (74-106) mg/dL Calcium 8.9 (8.5-10.1) mg/dL Phosphorus (2.5-4.9) mg/dL Magnesium (1.6-2.6) mg/dL Urine Color (Yellow) Urine Clarity (Clear) Urine pH (5.0 - 8.0) Ur Specific [place] (1.002-1.030) Urine Protein (Negative) mg/dl Urine Glucose (UA) (Normal) mg/dl Urine Ketones (Negative) mg/dl Urine Occult Blood (Negative) /ul Urine Nitrite (Negative) Urine Bilirubin (Negative) mg/dL Urine Urobilinogen (Normal) mg/dl Ur Leukocyte Esterase (Negative) /ul Urine RBC (0-5) /hpf Urine WBC (0-5) /hpf Ur Squamous Epith Cells (0-5) /hpf Urine Bacteria (None Seen) /hpf Urine Mucus (<or=2+) /hpf POC Glucose (70-110) mg/dL Diagnostic Data: Diagnostic Data Brain CT 03/07/19 09:54 IMPRESSION: Chronic involutional changes of the brain. No acute hemorrhage Previously noted acute hemorrhage involving the posterior corpus callosum has resolved. Sequela from hemorrhage noted. Electronically Signed: Armando Welch MD at 11:28 EST , Service support , ADDENDUM: 01/02/20 1201 Chest X-Ray 03/07/19 10:00 IMPRESSION: Likely postsurgical changes in the left hemithorax with stable elevation of the left hemidiaphragm, no superimposed acute pulmonary process Electronically Signed: Armando Welch MD at 10:38 EST , Service support , Assessment and Plan Mr. Tom Manzano is a very pleasant 78-year-old man recently diagnosed with primary BLIND LACER lymphoma admitted to [facility] subsequent to abrupt mental status changes. 1. 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 Patient requires full staging, CT chest abdomen and pelvis and soft tissue neck have already been ordered. Patient does require a PET CT which is tentatively planned for 03/11/2019. If patient is unable to undergo PET CT will require bone marrow biopsy. He will require CSF evaluation and dexamethasone every 6 hours while in patient and upon discharge. Patient must complete staging before any treatment options can be considered and/or discussed. Patient was seen in conjunction with Dr. Tomlinson, who developed aforementioned plan. Mr. Manzano should follow-up with [facility] upon discharge. Thank you for allowing us the privilege of participating in this patient's care. Fauzia Gross, MSN, [employer], AOCNP Medications: Medications Added to Medication List This Visit Category Date Time Status 0.9% Normal Saline 1,000 ml Med 03/07/19 14:28 Active IV 125 mls/hr 0.9% Saline Lock Med 03/07/19 14:31 Active 10 - 40 ml IV UD PRN Acetaminophen [Tylenol] Med 03/07/19 14:28 Active 650 mg PO Q6H PRN PRN Albuterol Aerosols [Ventolin Aerosols] Med 03/07/19 14:28 Active 2.5 mg INHALATION Q2H PRN PRN Atorvastatin Calcium [Lipitor] Med 03/07/19 22:00 Active 40 mg PO QHS Benzocaine/Menthol [Cepacol Sore Throat Lozenge] Med 03/07/19 14:28 Active 1 lozenge MUCOUS MEM Q2H PRN PRN Dexamethasone [Decadron] Med 03/07/19 18:00 Active 4 mg IV Q6 Dextrose 10%-Water 250 ml Med 03/07/19 14:50 Active IV 999 mls/hr Doxycycline Med 03/08/19 10:00 Active 100 mg PO DAILY Glucagon Med 03/07/19 14:28 Active 1 mg IM .X1 PRN Guaifenesin [Robitussin] Med 03/07/19 14:28 Active 20 ml PO Q4H PRN PRN Heparin Injection (Vial) [Heparin Na] Med 03/07/19 22:00 Active 5,000 unit SC Q12 Hydrocodone Bitart/Apap 5-325 [[place] 5MG-325MG] Med 03/07/19 14:28 Active 1 - 2 tablet PO Q6H PRN PRN Insulin Lispro [Humalog kwikpen (BKC)] Med 03/07/19 16:00 Active See Protocol SC ACHS Mag Hydrox/Al Hydrox/Simeth [Mylanta II] Med 03/07/19 14:28 Active 15 - 30 ml PO Q4H PRN PRN Magnesium Hydroxide [Milk Of Magnesia] Med 03/07/19 14:28 Active 30 ml PO DAILY PRN Melatonin Med 03/07/19 14:28 Active 3 mg PO QHS PRN PRN Metoprolol Tartrate [Lopressor (Beta Vin)] Med 03/07/19 22:00 Active 50 mg PO BID Ondansetron [Zofran] Med 03/07/19 14:28 Active 4 mg IV Q8H PRN PRN Pantoprazole Sodium [Protonix] Med 03/07/19 22:00 Active 20 mg PO BID Ramipril [Altace] Med 03/08/19 10:00 Active 5 mg PO DAILY hydrALAZINE IV [Apresoline IV] Med 03/07/19 14:28 Active 10 mg IV Q4H PRN PRN morphine Inj Med 03/07/19 14:28 Active 1 - 2 mg IV Q4H PRN PRN Primary Care Provider: Hunter Becker MD Referring Provider: - Problem List (1) 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
[2019-03-07] MEDS: dexAMETHasone 4 MG/ML Vial IV ×2 (18:11→23:50)
[2019-03-07] MEDS: Heparin Injection (Vial) 5,000 UNIT/ML VIAL 5000 UNIT SC (21:42)
[2019-03-07] MEDS: Atorvastatin Calcium 40 MG Tablet PO (21:43)
[2019-03-07] MEDS: Pantoprazole Sodium 20 MG Tablet PO (21:43)
[2019-03-07] MEDS: Metoprolol Tartrate 50 MG Tablet PO (21:43)
[2019-03-07] MEDS: Insulin Lispro 100 UNIT/ML INSULN.PEN SC (21:43)
[2019-03-07 23:15] LABS: Bedside Glucose 234 mg/dL (70-110)
[2019-03-08] VITALS (7 sets, daily range): BP systolic 113–149; BP diastolic 55–77; PULSE 60–71; RESP 14–16; TEMP 36.8–37.2; O2SAT 98–100
[2019-03-08] MEDS: dexAMETHasone 4 MG/ML Vial IV ×2 (06:22→11:41)
[2019-03-08] MEDS: Insulin Lispro 100 UNIT/ML INSULN.PEN SC ×2 (06:23→11:41)
[2019-03-08 06:40] LABS: Bedside Glucose 164 mg/dL (70-110)
[2019-03-08 06:53] LABS: Absolute Lymphocyte Count 0.42 X10^3/uL (0.83-4.51); Absolute Neutrophil Count 4.2 X10^3/uL (2.0-7.7); Basophil# 0.01 X10^3/uL; Basophil% 0.2 % (0-1); Hematocrit 40.1 % (40-54); Hemoglobin 12.8 g/dL (13.0-16.5); Lymphocyte # 0.42 X10^3/ul (4.0); Lymphocyte % 8.9 % (19-41); Mean Corp Hgb Conc 31.9 g/dL (32-36); Mean Corpuscular Hgb 30.2 pg (27.0-32.0); Mean Corpuscular Volume 94.6 fL (80-94); Mean Platelet Vol. 10.8 fl (6.2-12.0); Monocyte# 0.06 X10^3/uL; Monocyte% 1.3 % (0-10); NRBC Flagged by Analyzer 0 % (0-5); Neutrophil # 4.23 X10^3/uL (2.7-7.7); Neutrophil % 89.2 % (47-70); POSITIVE COUNT YES; POSITIVE DIFFERENTIAL YES; POSITIVE MORPHOLOGY YES; Platelet Count 97 K/mm3 (150-450); RBC Distribution Width CV 13.7 % (11.6-14.6); RBC Distribution Width SD 47.4 fl (35.1-43.9); Red Blood Count 4.24 M/mm3 (4.6-6.2); White Blood Count 4.7 K/mm3 (4.4-11.0)
[2019-03-08 06:57] LABS: Differential Indicated SCAN CRITERIA MET
[2019-03-08 07:22] LABS: ALB/GLOB Ratio 0.8 RATIO (0.9-2.4); AST(SGOT) 13 U/L (15-37); Alanine Aminotransfer ALT/SGPT 37 U/L (16-61); Albumin, Serum 2.4 g/dL (3.2-5.0); Alkaline Phosphatase 44 U/L (45-117); Anion Gap 5 (5-15); BUN 33 mg/dL (7-18); BUN/Creat Ratio 26.4 RATIO (10-20); Calcium,Total 8.2 mg/dL (8.5-10.1); Chloride 105 mmol/L (98-107); Creatinine, Serum 1.25 mg/dL (0.70-1.30); EST Glomerular Filtration Rate 59 mL/min (>60); Est Glom Filt Rate - Afr Amer 72 mL/min (>60); Globulin 3.2 g/dL (2.2-4.2); Glucose 184 mg/dL (74-106); Potassium 4.3 mmol/L (3.5-5.1); Protein, Total 5.6 g/dL (6.4-8.2); Sodium Level 136 mmol/L (136-145)
[2019-03-08] MEDS: Doxycycline 100 MG CAPSULE PO (08:41)
[2019-03-08] MEDS: Pantoprazole Sodium 20 MG Tablet PO (08:41)
[2019-03-08] MEDS: Ramipril 5 MG Capsule PO (08:41)
[2019-03-08] MEDS: Metoprolol Tartrate 50 MG Tablet PO (08:41)
[2019-03-08] MEDS: Heparin Injection (Vial) 5,000 UNIT/ML VIAL 5000 UNIT SC (08:41)
--- NOTE | 2019-03-08 11:45 | DCINST_ITS ---
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 Follow-up with Dr. Tomlinson Monday or next week to go over results. Allergies/Adverse Reactions: Allergies No Known Allergies Allergy (Verified 03/07/19 13:48) Medications to take at Discharge Doxycycline [Vibramycin] 1 tab PO DAILY 12/31/12 Nitroglycerin [Nitrolingual [place]] 0.4 mg SL PRN PRN 12/31/12 metoprolol tartrate 50 mg tablet 50 mg PO BID #180 tab 07/31/18 ramipril 5 mg capsule 5 mg PO DAILY #90 cap 08/15/18 Atorvastatin Calcium [Lipitor] 40 mg PO QHS 02/12/19 Pioglitazone [Actos] 30 mg PO DAILY 02/12/19 Esomeprazole Mag Trihydrate [Nexium] 20 mg PO DAILY 02/14/19 Dexamethasone [Decadron] 4 mg PO TID #90 tab 03/08/19 The following prescriptions were given: Dexamethasone [Decadron] 4 mg PO TID #90 tab Transmission Status: Pending to [facility]/pharmacy #[id number] Primary Care Physician: Hunter Becker Chi, MD [Primary Care Provider] - Please follow up with your Primary Care Physician in: 1 Week Test Results: Test results from this visit will be discussed in further detail at your follow- up appointment, if applicable. Please Follow Up With: Baljinder Tomlinson MD When: Please call for follow-up on Monday or next week Proposed Discharge Date: 03/08/19
[2019-03-08 11:50] LABS: Bedside Glucose 257 mg/dL (70-110)
--- NOTE | 2019-03-08 12:01 | PHA.DC.MR ---
Pharmacy Service has performed discharge medication reconciliation for this patient. Home Medications Doxycycline [Vibramycin] 1 tab PO DAILY 12/31/12 Nitroglycerin [Nitrolingual [place]] 0.4 mg SL PRN PRN 12/31/12 metoprolol tartrate 50 mg tablet 50 mg PO BID #180 tab 07/31/18 ramipril 5 mg capsule 5 mg PO DAILY #90 cap 08/15/18 Atorvastatin Calcium [Lipitor] 40 mg PO QHS 02/12/19 Pioglitazone [Actos] 30 mg PO DAILY 02/12/19 Esomeprazole Mag Trihydrate [Nexium] 20 mg PO DAILY 02/14/19 The patient's discharge medication list was reviewed for discrepancies and discrepancies were resolved.
--- NOTE | 2019-03-08 12:20 | PCM.DC.SUM ---
<Raissa Schwarz - Last Filed: 03/08/19 12:38> Discharge Date and Diagnosis Date of Admission: 03/07/19 Date of Discharge: 03/08/19 - Primary Discharge Diagnosis Active and Suspected Problems (Last Reviewed 03/07/19 @ 13:48 by Carmina Doty) 1. 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 Chronic kidney disease stage III 3. Type 2 diabetes mellitus 4. Valvular heart disease status post aortic valve replacement 5. Dementia, unclear type 6. CAD status post CABG x4 and PCI 7. PAOD status post iliac artery stent 8. 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 Hypertension/hyperlipidemia 10. History of CVA 12. GERD - Secondary Discharge Diagnosis Chronic Problems (Last Reviewed 03/07/19 @ 13:48 by Carmina Doty) Diabetes mellitus, type II (Chronic) CONFECTIONERY DROPS MACHINE OPERATOR lymphoma (Chronic) Presence of stent in coronary artery (Chronic) PTCA/stent of the mid RCA 04/10/02 Atherosclerosis of coronary artery bypass graft without angina pectoris (Chronic) CABG x4- UMANZOR to LAD, SVG to the high lateral and lateral CX, SVG to PDA of the RCA 03/31/06 Hyperlipidemia (Chronic) Hypertension (Chronic) H/O aortic valve replacement (Chronic ~03/31/06) St. 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) Presence of cardiac pacemaker (Chronic) S/P insertion of iliac artery stent (Chronic) PAD (peripheral artery disease) (Chronic) Hospital Course and Treatment Imaging Results: Diagnostic Data Brain CT 03/07/19 09:54 IMPRESSION: Chronic involutional changes of the brain. No acute hemorrhage Previously noted acute hemorrhage involving the posterior corpus callosum has resolved. Sequela from hemorrhage noted. Electronically Signed: Armando Welch MD at 11:28 EST , Service support , ADDENDUM: 03/07/19 1201 Chest X-Ray 03/07/19 10:00 IMPRESSION: Likely postsurgical changes in the left hemithorax with stable elevation of the left hemidiaphragm, no superimposed acute pulmonary process Electronically Signed: Armando Welch MD at 10:38 EST , Service support , Dr. Tomlinson- Oncology Operations: None Procedures: None Summary of Care Provided: The patient is a 78 year old M admitted 03-07-19 due to headache, confusion with recent diagnosis of brain tumor 6 weeks ago. 1. 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 Tomlinson. Oncology consulted during admission. Recent biopsy corpus colossal lesion 02/19/2019, final pathology demonstrated aggressive B-cell lymphoma. Patient has PET scan scheduled 03/11/2019. He recently completed a taper of dexamethasone and was noted to have headache and abrupt increased confusion following completed taper. Discharged on dexamethasone 4 mg 3 times daily until further advised to discontinue. Follow-up with oncology Monday or next week to discuss PET scan findings. Soft tissue neck CT and CT of abdomen and pelvis completed during admission, report pending. This can be reviewed with oncology at outpatient follow-up next week. 2. Chronic kidney disease stage III-stable. 3. Type 2 diabetes mellitus-continue home oral regimen at discharge. 4. Valvular heart disease status post aortic valve replacement 5. Dementia, unclear type-continue Aricept regimen. 6. CAD status post CABG x4 and PCI-continue Eliquis, statin, metoprolol, KAYCE inhibitor. 7. PAOD status post iliac artery stent-continue Eliquis, statin, metoprolol, KAYCE inhibitor. 8. 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 Hypertension/hyperlipidemia-continue metoprolol, ramipril, statin. 10. History of CVA-continue Eliquis, statin. 12. GERD-continue PPI. Patient seen and examined prior to discharge. Physical assessment as noted below. Patient is stable for discharge with follow up recommendations as noted above. This patient was seen by GELY Velarde under the supervision of Dr. Olson. - Physical Exam Vitals/I&O's: Vital Signs Temp Pulse Resp BP Pulse Ox 98.2 F 70 14 149/77 H 100 03/08/19 08:40 03/08/19 08:41 03/08/19 08:40 03/08/19 08:40 03/08/19 08:40 Oxygen Flow Rate (L/min) 2 Oxygen Delivery Method Room Air Weight: 192 lb 11.191 oz Body Mass Index (BMI) 28.4 Intake and Output for Last 24 Hours 03/06/19 03/07/19 03/08/19 23:59 23:59 23:59 Intake Total 770.83 / 770.83 829.17 / 829.17 Output Total 500 / 500 Balance 270.83 / 270.83 829.17 / 829.17 General: Alert, Cooperative HEENT: Atraumatic, PERRLA, EOMI, Normocephalic Neck: Supple, No JVD, Negative Carotid Bruits Lungs: Clear to auscultation, Normal air movement Cardiovascular: Regular rate, No murmurs Abdomen: Bowel Sounds Present, Soft, Non Tender, Non-Distended Extremities: No clubbing, No cyanosis, No edema, Capillary Refill Less than 3 Seconds Skin: No rashes, No breakdown Musculoskeletal: No Tenderness to Palpation of Joints or Extremities Neurological: Cranial nerves II-XII grossly intact, Neuro grossly intact Psych/Mental Status: Normal Affect, Appropriate Microbiology Past 72 Hours 03/07/19 10:05 Mucosa - Nose Influenza Types A,B Direct FA (ANGEL) - Final Laboratory Results 03/07/19 10:30: Phosphorus 4.1, Magnesium 2.1 03/07/19 13:00: Urine Color Yellow, Urine Clarity Clear, Urine pH 7.0, Ur Specific [place] 1.010, Urine Protein Negative, Urine Glucose (UA) Normal, Urine Ketones Negative, Urine Occult Blood Negative, Urine Nitrite Negative, Urine Bilirubin Negative, Urine Urobilinogen Normal, Ur Leukocyte Esterase Negative, Urine RBC 0 SEEN, Urine WBC 0 SEEN, Ur Squamous Epith Cells 0 SEEN, Urine Bacteria 0 SEEN, Urine Mucus 0 SEEN 03/07/19 16:27: POC Glucose 84 03/07/19 21:37: POC Glucose 234 H 03/08/19 06:20: WBC 4.7, RBC 4.24 L, Hgb 12.8 L, Hct 40.1, MCV 94.6 H, MCH 30.2, MCHC 31.9 L, RDW Std Deviation 47.4 H, RDW Coeff of Ni 13.7, Plt Count 97 L, MPV 10.8, Immature Gran % (Auto) 0.400, Neut % (Auto) 89.2 H, Lymph % (Auto) 8.9 L, [place] % (Auto) 1.3, Eos % (Auto) 0.0, Baso % (Auto) 0.2, Absolute Neuts (auto) 4.2, Absolute Lymphs (auto) 0.42 L, Nucleated RBC % 0 03/08/19 06:20: Sodium 136, Potassium 4.3, Chloride 105, Carbon Dioxide 26.0, Anion Gap 5, BUN 33 H, Creatinine 1.25, Estim Creat Clear Calc 48.70, Est GFR (MDRD) Af Amer 72, Est GFR (MDRD) Non-Af 59 L, BUN/Creatinine Ratio 26.4 H, Glucose 184 H, Calcium 8.2 L, Total Bilirubin 0.60, AST 13 L, ALT 37, Alkaline Phosphatase 44 L, Total Protein 5.6 L, Albumin 2.4 L, Globulin 3.2, Albumin/Globulin Ratio 0.8 L 03/08/19 06:21: POC Glucose 164 H 03/08/19 11:39: POC Glucose 257 H Current Medications Acetaminophen (Tylenol) 650 mg PO Q6H PRN PRN PRN Reason: Non-cardiac pain (4-10/10) Hydrocodone Bitart/Acetaminophen (Dinosaur 5mg-325mg) 1 - 2 tablet PO Q6H PRN PRN PRN Reason: Pain Score 4-10/10 Al Hydroxide/Mg Hydroxide (Mylanta Ii) 15 - 30 ml PO Q4H PRN PRN PRN Reason: INDIGESTION Albuterol Sulfate (Ventolin Aerosols) 2.5 mg INHALATION Q2H PRN PRN PRN Reason: dyspnea, wheezing Atorvastatin Calcium (Lipitor) 40 mg PO QHS [facility] Last Admin: 03/07/19 21:43 Dose: 40 mg Documented by: Dexamethasone Sodium Phosphate (Decadron) 4 mg IV Q6 [facility] Last Admin: 03/08/19 11:41 Dose: 4 mg Documented by: Doxycycline Monohydrate (Doxycycline) 100 mg PO DAILY [facility] Last Admin: 03/08/19 08:41 Dose: 100 mg Documented by: Glucagon () 1 mg IM .X1 PRN PRN Reason: Hypoglycemia Guaifenesin (Robitussin) 20 ml PO Q4H PRN PRN PRN Reason: COUGH Heparin Sodium (Porcine) (Heparin Na) 5,000 unit SC Q12 [facility] Last Admin: 03/08/19 08:41 Dose: 5,000 unit Documented by: Hydralazine HCl (Apresoline Iv) 10 mg IV Q4H PRN PRN PRN Reason: SBP > 160 Dextrose (Dextrose 10%-Water) 250 mls @ 999 mls/hr IV .Q16M PRN; Protocol PRN Reason: HYPOGLYCEMIA Insulin Human Lispro (Humalog Kwikpen (Bkc)) 0 unit SC ACHS [facility]; Protocol Last Admin: 03/08/19 11:41 Dose: 3 units Documented by: Magnesium Hydroxide (Milk Of Magnesia) 30 ml PO DAILY PRN PRN Reason: Constipation Melatonin (Melatonin) 3 mg PO QHS PRN PRN PRN Reason: INSOMNIA Metoprolol Tartrate (Lopressor (Beta Vin)) 50 mg PO BID [facility] Last Admin: 03/08/19 08:41 Dose: 50 mg Documented by: Morphine Sulfate () 1 - 2 mg IV Q4H PRN PRN PRN Reason: Pain Score 1-10/10 Ondansetron HCl (Zofran) 4 mg IV Q8H PRN PRN PRN Reason: NAUSEA/VOMITING Pantoprazole Sodium (Protonix) 20 mg PO BID [facility] Last Admin: 03/08/19 08:41 Dose: 20 mg Documented by: Ramipril (Altace) 5 mg PO DAILY [facility] Last Admin: 03/08/19 08:41 Dose: 5 mg Documented by: Sodium Chloride () 10 - 40 ml IV UD PRN PRN Reason: SALINE FLUSH Last Admin: 03/07/19 15:48 Dose: 10 ml Documented by: Throat Lozenges (Cepacol Sore Throat Lozenge) 1 lozenge MUCOUS MEM Q2H PRN PRN PRN Reason: Sore Throat/Cough Discharge Diet: No Restrictions Discharge Activity: Return to Normal Activity Call your doctor if you observe: Shortness of breath, Dizziness, Uncontrolled pain Home Medications: Medications to take at Discharge Doxycycline [Vibramycin] 1 tab PO DAILY 12/31/12 Nitroglycerin [Nitrolingual Ezel] 0.4 mg SL PRN PRN 12/31/12 metoprolol tartrate 50 mg tablet 50 mg PO BID #180 tab 07/31/18 ramipril 5 mg capsule 5 mg PO DAILY #90 cap 08/15/18 Atorvastatin Calcium [Lipitor] 40 mg PO QHS 02/12/19 Pioglitazone [Actos] 30 mg PO DAILY 02/12/19 Esomeprazole Mag Trihydrate [Nexium] 20 mg PO DAILY 02/14/19 Dexamethasone [Decadron] 4 mg PO TID #90 tab 03/08/19 Following Prescrptions Were Given to Patient: Dexamethasone [Decadron] 4 mg PO TID #90 tab Transmission Status: Received by [facility]/pharmacy #[id number] Primary Care Physician: Hunter Becker Chi, MD [Primary Care Provider] - Please follow up with your Primary Care Physician in: 1 Week Please Follow Up With: Baljinder Tomlinson MD When: Please call for follow-up on Monday or next week Please Follow Up With: Henrik Caldwell MD When: As scheduled Please Follow Up With: [facility]- Dr. 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) Presence of cardiac pacemaker (Chronic) S/P insertion of iliac artery stent (Chronic) PAD (peripheral artery disease) (Chronic) Hospital Course and Treatment Summary of Care Provided: This patient was seen in conjunction with GELY Velarde . I have independently interviewed and examined the patient and reviewed pertinent historical, laboratory, and other data. Please refer to GELY Velarde note for details of this patient's presentation, findings, and recommendations. I have reviewed GELY Velarde note and concur with documented findings. 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 Patient was admitted to monitored bed for subsequent evaluation patient was expected to stay for at least 2 midnights given his presentation however his condition did stabilize resulting in patient being discharged just a day after his admission. Hospital course: As documented above - Physical Exam Vitals/I&O's: Vital Signs Temp Pulse Resp BP Pulse Ox 98.2 F 70 14 149/77 H 100 03/08/19 08:40 03/08/19 08:41 03/08/19 08:40 03/08/19 08:40 03/08/19 08:40 Oxygen Flow Rate (L/min) 2 Oxygen Delivery Method Room Air Weight: 87.407 kg Body Mass Index (BMI) 28.4 Intake and Output for Last 24 Hours 03/06/19 03/07/19 03/08/19 23:59 23:59 23:59 Intake Total 770.83 / 770.83 829.17 / 829.17 Output Total 500 / 500 Balance 270.83 / 270.83 829.17 / 829.17 Microbiology Past 72 Hours 03/07/19 10:05 Mucosa - Nose Influenza Types A,B Direct FA (ANGEL) - Final Laboratory Results 03/07/19 10:30: Phosphorus 4.1, Magnesium 2.1 03/07/19 13:00: Urine Color Yellow, Urine Clarity Clear, Urine pH 7.0, Ur Specific [place] 1.010, Urine Protein Negative, Urine Glucose (UA) Normal, Urine Ketones Negative, Urine Occult Blood Negative, Urine Nitrite Negative, Urine Bilirubin Negative, Urine Urobilinogen Normal, Ur Leukocyte Esterase Negative, Urine RBC 0 SEEN, Urine WBC 0 SEEN, Ur Squamous Epith Cells 0 SEEN, Urine Bacteria 0 SEEN, Urine Mucus 0 SEEN 03/07/19 16:27: POC Glucose 84 03/07/19 21:37: POC Glucose 234 H 03/08/19 06:20: WBC 4.7, RBC 4.24 L, Hgb 12.8 L, Hct 40.1, MCV 94.6 H, MCH 30.2, MCHC 31.9 L, RDW Std Deviation 47.4 H, RDW Coeff of Ni 13.7, Plt Count 97 L, MPV 10.8, Immature Gran % (Auto) 0.400, Neut % (Auto) 89.2 H, Lymph % (Auto) 8.9 L, [place] % (Auto) 1.3, Eos % (Auto) 0.0, Baso % (Auto) 0.2, Absolute Neuts (auto) 4.2, Absolute Lymphs (auto) 0.42 L, Nucleated RBC % 0 03/08/19 06:20: Sodium 136, Potassium 4.3, Chloride 105, Carbon Dioxide 26.0, Anion Gap 5, BUN 33 H, Creatinine 1.25, Estim Creat Clear Calc 48.70, Est GFR (MDRD) Af Amer 72, Est GFR (MDRD) Non-Af 59 L, BUN/Creatinine Ratio 26.4 H, Glucose 184 H, Calcium 8.2 L, Total Bilirubin 0.60, AST 13 L, ALT 37, Alkaline Phosphatase 44 L, Total Protein 5.6 L, Albumin 2.4 L, Globulin 3.2, Albumin/Globulin Ratio 0.8 L 03/08/19 06:21: POC Glucose 164 H 03/08/19 11:39: POC Glucose 257 H Current Medications Acetaminophen (Tylenol) 650 mg PO Q6H PRN PRN PRN Reason: Non-cardiac pain (4-10/10) Hydrocodone Bitart/Acetaminophen (Dinosaur 5mg-325mg) 1 - 2 tablet PO Q6H PRN PRN PRN Reason: Pain Score 4-10/10 Al Hydroxide/Mg Hydroxide (Mylanta Ii) 15 - 30 ml PO Q4H PRN PRN PRN Reason: INDIGESTION Albuterol Sulfate (Ventolin Aerosols) 2.5 mg INHALATION Q2H PRN PRN PRN Reason: dyspnea, wheezing Atorvastatin Calcium (Lipitor) 40 mg PO QHS [facility] Last Admin: 03/07/19 21:43 Dose: 40 mg Documented by: Dexamethasone Sodium Phosphate (Decadron) 4 mg IV Q6 [facility] Last Admin: 03/08/19 11:41 Dose: 4 mg Documented by: Doxycycline Monohydrate (Doxycycline) 100 mg PO DAILY [facility] Last Admin: 03/08/19 08:41 Dose: 100 mg Documented by: Glucagon () 1 mg IM .X1 PRN PRN Reason: Hypoglycemia Guaifenesin (Robitussin) 20 ml PO Q4H PRN PRN PRN Reason: COUGH Heparin Sodium (Porcine) (Heparin Na) 5,000 unit SC Q12 [facility] Last Admin: 03/08/19 08:41 Dose: 5,000 unit Documented by: Hydralazine HCl (Apresoline Iv) 10 mg IV Q4H PRN PRN PRN Reason: SBP > 160 Dextrose (Dextrose 10%-Water) 250 mls @ 999 mls/hr IV .Q16M PRN; Protocol PRN Reason: HYPOGLYCEMIA Insulin Human Lispro (Humalog Kwikpen (Bkc)) 0 unit SC ACHS [facility]; Protocol Last Admin: 03/08/19 11:41 Dose: 3 units Documented by: Magnesium Hydroxide (Milk Of Magnesia) 30 ml PO DAILY PRN PRN Reason: Constipation Melatonin (Melatonin) 3 mg PO QHS PRN PRN PRN Reason: INSOMNIA Metoprolol Tartrate (Lopressor (Beta Vin)) 50 mg PO BID [facility] Last Admin: 03/08/19 08:41 Dose: 50 mg Documented by: Morphine Sulfate () 1 - 2 mg IV Q4H PRN PRN PRN Reason: Pain Score 1-10/10 Ondansetron HCl (Zofran) 4 mg IV Q8H PRN PRN PRN Reason: NAUSEA/VOMITING Pantoprazole Sodium (Protonix) 20 mg PO BID [facility] Last Admin: 03/08/19 08:41 Dose: 20 mg Documented by: Ramipril (Altace) 5 mg PO DAILY [facility] Last Admin: 03/08/19 08:41 Dose: 5 mg Documented by: Sodium Chloride () 10 - 40 ml IV UD PRN PRN Reason: SALINE FLUSH Last Admin: 03/07/19 15:48 Dose: 10 ml Documented by: Throat Lozenges (Cepacol Sore Throat Lozenge) 1 lozenge MUCOUS MEM Q2H PRN PRN PRN Reason: Sore Throat/Cough Code Visit Inpatient E&M: 01228 Disch Hosp
--- NOTE | 2019-03-08 14:00 | CASEMGMT ---
RN CM NOTE: To room to talk with pt/complete RN CM initial assessment. Pt sitting up in recliner chair, pleasant, awake/alert, but remains w/some confusion/forgetfulness noted. Pt able to state his name and birthday but states is not sure who his doctor is stating, some woman and states he is not sure what pharmacy he uses or if his family will be coming in to see him today. RN CM to attempt assessment at a later time with family when they are available. Andrea BEDOLLAN CN RM
--- NOTE | 2019-03-08 14:40 | CHAPLAIN ---
Type of Pastoral Visit _x__ Initial Visit ___ Follow-up Visit ___ On-call Visit ___ General Patient Visit ___ Spiritual Assessment ___ Family Conference ___ Bereavement ___ Rapid Response ___ Code Blue ___ Other (describe below) Pastoral Care Referral From _x__ Patient ___ Family ___ Nurse ___ Physician ___ Director Recreation ___ Sports Medicine Physician ___ Other (describe below) Sacrament/Intervention _x__ Active listening ___ Anointing ___ Denominational ___ Bereavement ___ Communion ___ Liseth exploration ___ ___ Life review _x__ Prayer ___ Reconciliation ___ Sacrament of Sick _x__ Supportive presence ___ Wedding ___ Other (describe below) Pastoral Comments
--- NOTE | 2019-03-08 14:41 | CASEMGMT ---
This RN CM to room to complete CM assessment and pt is confused at this time, unable to answer questions. Call placed to pt's daughter, Belkis, who is HPOA to complete CM assessment at this time and she states that she is almost to [facility] at this time. This RN CM will speak with her upon arrival. Lamont HECTOR CM
--- NOTE | 2019-03-08 15:02 | CASEMGMT ---
KRUNAL JENNINGS assessment: Face to Face with patient for initial transition planning/care coordination assessment. KRUNAL JENNINGS introduced self and role at [facility], pt/family voice understanding and consent to assessment at this time. Pt is sitting in chair in no distress at this time. Pt is A/Ox3 at this time. Pt's /daughter, Belkis, are at bedside and daughter/HPOA answers most questions for pt at this time. Care providers, pharmacy, and demographics verified/updated. Presentation: c/o headache/confusion Admitting dx: Headache/confusion PCP: Eugenio Specialists: Davi onc; carisa Ricardo onc Preferred Pharmacy: [facility] but would like meds sent here to [facility] today. Call to [facility] pharmacy to have meds transferred here today, Jazmin enriques understanding. Insurance: MCR/MMO Prescription Benefit: Yes Living Will/HPOA: Pt has LW/HPOA but only the LW is on file at [facility] at this time. Pt/family would like to have a new HPOA completed at this time as they are not sure if they still have copies of the old ones. Conor COREAS aware and to bedside at this time. LNOK: Ame Manzano, ; Belkis Newton, daughter/HPOA Living Arrangements: Pt lives on main level of 2 story home and states no concerns at home at this time. Pt is independent with ADL's but does need reminding at times per daughter. Transportation: Family drives pt and states no transportation concerns at this time. DME/HHC: Pt has a walker and grab bars near the toilet. Daughter states she is going to look into grab bars for the shower. Pt has no hx of HHC or SNF in the past. Pt/family state no concerns with going home at time of discharge. Pt is retired. Pt does not smoke and rarely drinks ETOH. Pt/family voice no further concerns/needs at this time. CM to follow for any further discharge planning/needs. Advised pt to ask for CM if any further questions/concerns/needs arise, voices understanding. Pt Goal: Home Plan: Home w/ family support. SStaten KRUNAL JENNINGS
--- NOTE | 2019-03-08 15:39 | CASEMGMT ---
SW completed Healthcare POA papers with patient. He was alert and oriented and understood purpose of documents. Copies were made and given to patient along with originals. SW also put a copy in patient's chart. Rina NOBLES MSW
--- NOTE | 2019-03-11 13:32 | CASEMGMT ---
KRUNAL DC PHONE CALL DC DATE: 03.08.2019 DC Disposition: Home Diagnosis on Discharge: Intractable headache, acute encephalopathy. LACE/STRATA: 11/06 No answer to home phone and noted pt has appt with Dr. bauer today @ 1400. Sabiha BEDOLLAN RN ACM
== END 2019-03-08 15:58 | disposition home or self-care (01) | DRG 841 ==
LOC: ED 10:01 → PCU 14:07
PROVIDERS: Admitting Provider Family Medicine; Emergency Provider Emergency Medicine; Family Provider Family Medicine Geriatric Medicine; PCP Family Medicine Geriatric Medicine; Visit Provider Internal Medicine
DX: C83.39 Diffuse large B-cell lymphoma, extranodal and solid organ sites (principal); I44.2 Atrioventricular block, complete; G13.1 Other systemic atrophy primarily affecting central nervous system in neoplastic disease; N18.3 Chronic kidney disease, stage 3 (moderate); E11.22 Type 2 diabetes mellitus with diabetic chronic kidney disease; I25.10 Atherosclerotic heart disease of native coronary artery without angina pectoris; E78.5 Hyperlipidemia, unspecified; K21.9 Gastro-esophageal reflux disease without esophagitis; I73.9 Peripheral vascular disease, unspecified; R51 Headache; Z95.3 Presence of xenogenic heart valve; Z79.01 Long term (current) use of anticoagulants; Z79.84 Long term (current) use of oral hypoglycemic drugs; I25.2 Old myocardial infarction; Z95.1 Presence of aortocoronary bypass graft; Z95.5 Presence of coronary angioplasty implant and graft; Z95.0 Presence of cardiac pacemaker; Z86.73 Personal history of transient ischemic attack (TIA), and cerebral infarction without residual deficits; Z87.891 Personal history of nicotine dependence
CPT/HCPCS: 36415; 70450; 70491; 71045; 71260; 74177; 80048; 80053; 81001; 82962; 83615; 83735; 83970; 84100; 85025; 86704; 86705; 86706; 86708; 86709; 86803; 87340; 87804; 93005; 97162; 97802; 99251; 99285; 99406; J7030; Q9967; A4216; G0463

== ENCOUNTER → 2019-03-12 10:47 | Outpatient (CLI) | payer MEDICARE, OTHER, SELFPAY ==
[2018-08-15 14:12] VITALS: BMI 28.9
[2019-02-14 13:39] VITALS: BMI 29.3
[2019-03-11 13:53] LABS: Platelet Count 161 K/mm3 (150-450)
[2019-03-11 13:59] LABS: Prothrombin Time (Protime)PT. 12.6 SECONDS (11.7-14.9)
[2019-03-11 14:00] LABS: Partial Thromboplast Time 21.8 Seconds (24.1-36.2)
[2019-03-11 14:34] VITALS: BMI 28.2
--- NOTE | 2019-03-12 10:50 | RAD_ITS ---
PROCEDURE: Fluoroscopic guided Lumbar Puncture. DATE: March 12, 2019. 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 PHYSICIAN: Zain Collier M.D. MEDICATIONS: 1% lidocaine administered subcutaneously for local anesthesia. ACCESS SITE: Lower posterior back. NEEDLE: 22-gauge spinal needle. SPECIMEN: Approximately 7 mL clear]CSF fluid. FLUOROSCOPY TIME (if supplied): (1:55) minutes/seconds COMPLICATIONS: None immediate. The risks, benefits, and alternatives to the procedure were explained to the patient. The specific risks of bleeding, infection, and neurovascular injury were detailed and accepted. Witnessed informed consent was obtained. The patient was placed on the fluoroscopic table in the prone position. The level for needle entry was determined and marked. The overlying skin was cleaned and prepped in the usual sterile fashion. 2% lidocaine was administered subcutaneously for local anesthesia. Under fluoroscopic guidance a 22-gauge spinal needle was advanced. The thecal sac was entered at the L3- L4 vertebral level. The inner stylet was removed. There was spontaneous flow of clear CSF fluid. The patient was placed in a reversed Trendelenburg position. Approximately 7 mL of cerebrospinal fluid was collected using gravity. The specimen was collected and submitted to the laboratory for further evaluation. The needle was withdrawn,. Hemostasis was achieved and a sterile dressing placed. The patient tolerated the procedure well without any immediate complications. The patient was placed supine with head elevated and returned to the floor in stable condition. RAD/Fluoro Guided Lumbar Puncture IMPRESSION: Successful fluoroscopic-guided lumbar puncture. Electronically Signed: Zain Collier, at 13:15 EST , Service support ,
[2019-03-12 11:01] VITALS: BP 166/83; PULSE 70; RESP 18; TEMP 36.4; O2SAT 99; BMI 28.9
--- NOTE | 2019-03-12 11:25 | CYSPIN_PTH ---
PATIENT: ZORAN BYRNE LOC: [facility] U#:[id number] AGE/SX: 84/M ROOM: RE03/12/[address]: Dr. Jaya Ricardo DO : 1940 BED: DIS: SPEC #: [id number] RECD: 03/12/19 13:06 STATUS: SHANDRA JONATHON #: [id number] VIVIANE: 03/12/19 11:[address]: Jaya Ricardo DEPT: CYTOLOGY RECD BY: Dell Mejia ENTERED: 03/12/19 13:07 SP TYPE: CYSPIN FL OTHR DR: Dr. Hunter Becker MD Tissues: Cerebrospinal Fluid Procedures: Pap Stain (control) Special Stain Group II Cytospin Fluid HEADER OPERATION: Lumbar puncture PRE-OP DIAGNOSIS: Lymphoma TISSUE SUBMITTED: Cerebrospinal fluid for cytology DIAGNOSIS CYTOLOGY Cerebrospinal fluid for cytology (cytospin): Negative for malignant cells. See comment. SHAJI:kamryn 03/13/19 COMMENT The specimen is bloody and consists of polymorphous lymphocytes, monocytes and neutrophils. Correlation with clinical findings and appropriate follow up are necessary. This case is discussed with Dr. Ricardo on 03/13/[address] Graf Case has been reviewed in consultation with Dr. Graf who concurs with the above diagnosis. IDC:AM CYTOLOGY STUDY Slides are reviewed. CYTOLOGY GROSS Received is 1 ml of clear fluid labeled with the patient's name and and designated per the requisition as CSF. Submitted for cytology preparation. / kamryn 03/12/19 TC:5 CPT: 92981
[2019-03-12 11:45] VITALS: BP 168/88; PULSE 70; RESP 16; O2SAT 98
[2019-03-12 11:49] LABS: Cytology, Body Fluid / CSF SEE PATHOLOGY REPORT
[2019-03-12 12:30] VITALS: BP 174/92; PULSE 70; RESP 16; O2SAT 98
[2019-03-12 12:35] LABS: Appearance CSF (character) CLEAR (Clear); Auto B Fluid Analyzer BKGD Ct COUNTS W/IN LIMITS (W/IN LIMITS); CSF Color COLORLESS (Colorless); RBC Count, Spinal Fluid 82 /mm-3 (None seen); Tested Tube # 3
[2019-03-12 12:36] LABS: Body Fluid QC Type(s) BF1Q
[2019-03-12 12:51] LABS: Glucose Spinal Fluid 110 mg/dL (40-75)
[2019-03-13 13:48] LABS: Pathologist Review Reviewed
== END ==
PROVIDERS: Family Provider Family Medicine Geriatric Medicine; PCP Family Medicine Geriatric Medicine; Referring Provider Student in an Organized Health Care Education/Training Program; Visit Provider Student in an Organized Health Care Education/Training Program
DX: Z01.812 Encounter for preprocedural laboratory examination (principal); C85.89 Other specified types of non-Hodgkin lymphoma, extranodal and solid organ sites; C83.39 Diffuse large B-cell lymphoma, extranodal and solid organ sites
CPT/HCPCS: 36415; 62270; 77003; 82945; 84157; 85049; 85610; 85730; 88108; 88313; 89050; 89051

== ENCOUNTER 2019-03-22 10:06 | Inpatient (IN) | payer MEDICARE, OTHER, SELFPAY ==
[2019-02-14 13:39] VITALS: BMI 29.3
[2019-03-14 10:18] VITALS: BMI 28.5
[2019-03-22] VITALS (10 sets, daily range): BP systolic 112–158; BP diastolic 65–87; PULSE 69–81; RESP 14–18; TEMP 36.4–36.9; O2SAT 96–99; BMI 28.3; BMI 28.4; BMI 27.1
--- NOTE | 2019-03-22 10:39 | CT_ITS ---
STUDY: CT BRAIN WITHOUT CONTRAST REASON FOR EXAM: Male, 78 years old. 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 Individualized dose optimization techniques were used for this CT. COMPARISON: Comparison is made with prior study dated March 07, 2019. FINDINGS: Normal soft tissue structures. Normal calvarium. There is mild cerebral atrophy with widening of the extra-axial spaces and ventricular dilatation. There are areas of decreased attenuation within the white matter tracts of the supratentorial brain, consistent with microvascular disease changes. Prominent decrease attenuation in the white matter along the posterior aspect of the left parietal lobe and occipital lobe. This is suggestive of edema. Along the medial aspect of this edema, there is a 5.2 mm focus of increased attenuation. With the patient''s history of a lymphoma of the brain, this may represent neoplastic involvement. A follow-up examination following IV contrast is recommended. 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 Normal brainstem. Normal cerebellum. There is no intracranial hemorrhage. There are no findings of an acute ischemic infarction. Atherosclerotic changes involving the vertebral arteries as well as the cavernous portions of the internal carotid arteries bilaterally. Normal visualized paranasal sinuses. CT/Brain/Head without Contrast IMPRESSION: Chronic involutional changes of the brain. Prominent edema in the white matter of the posterior left parietal and occipital lobes with focal area of increased attenuation. This may represent an area of lymphoma. A repeat examination following IV contrast or MRI examination is recommended. Electronically Signed: Zain Collier, at 12:02 EST , Service support ,
--- NOTE | 2019-03-22 10:42 | EKG12_ITS ---
Test Reason : Blood Pressure : / mmHG Vent. Rate : 070 BPM Atrial Rate : 070 BPM P-R Int : 228 ms QRS Dur : 170 ms QT Int : 486 ms P-R-T Axes : 000 -64 129 degrees QTc Int : 524 ms AV dual-paced rhythm with prolonged AV conduction Abnormal ECG Confirmed by ELSIE BEARDEN, WOJCIECH ([id number]), photography editor EMEKA ROSE ([id number]) on 03/26/2019 9:00:33 AM Referred By: Ana Lilia Mirza Confirmed By:WOJCIECH ZIMMERMAN MD
--- NOTE | 2019-03-22 10:43 | RAD_ITS ---
STUDY: X-RAY CHEST REASON FOR EXAM: Male, 78 years old. FALL, EDEMA TECHNIQUE: AP and lateral views of the chest. COMPARISON: Comparison is made with prior study dated March 07, 2019 FINDINGS: EKG electrodes are seen. Elevation of the left hemidiaphragm. Stable mild increased markings in the left hemithorax most likely secondary to prior surgery. There is no demonstrated pleural abnormality. Sternal cerclage wires and vascular clips are present from a prior sternotomy and coronary artery bypass graft procedure (CABG). A left-sided ICD is seen. Normal mediastinum and ruth. Normal visualized pulmonary arteries. There is atherosclerotic calcification of the aortic arch with tortuosity. There are diffuse degenerative changes of the visualized thoracic spine. Normal visualized ribs, clavicles, and shoulders. There is no demonstrated abnormality of the visualized soft tissue structures of the upper abdomen. RAD/Chest PA and Lateral IMPRESSION: Status post CABG. Stable elevation of the left hemidiaphragm with persistent increased markings in the left lung most likely postoperative in nature. Electronically Signed: Zain Collier, at 11:32 EST , Service support ,
--- NOTE | 2019-03-22 10:50 | CM.ED ---
SOCIAL WORK INFORMANT: NURSESUNIL REASON FOR REFERRAL: DISCHARGE PLANNING MET WITH PATIENT, AND DAUGHTER, [facility] ([phone]) IN ROOM. INTRODUCED ROLE AND REASON FOR REFERRAL. NILA ARANDA WORKS AT THE [employer] AND HAS ALREADY BEEN UPDATING STAFF ON PATIENT'S STATUS AND NEED FOR PLACEMENT. DAUGHTER HAS BEEN ASSISTING IN PATIENT'S CARE AT HOME AND STATES THE LAST 48 HOURS PATIENT HAS BEEN REQUIRING MORE ASSISTANCE. DAUGHTER REPORTS SWELLING TO BILATERAL LOWER EXTREMITIES AND REPORTS UNABLE TO CONTINUE TO CARE FOR PATIENT IN THE HOME. PATIENT WAS IN ONCOLOGY BEFORE COMING TO THE EMERGENCY DEPARTMENT. PATIENT HAS RADIATION TREATMENTS AT 9:40A M-F. DAUGHTER HOPING PATIENT WILL BE ADMITTED. DISCUSSED PLACEMENT AND EDUCATION PROVIDED ON PALLIATIVE SERVICES. NILA ARANDA HAS ALREADY BEEN DISCUSSING PALLIATIVE MEDICINE WITH [facility] SPECIAL[facility] AND MIGHT BE OPEN TO SERVICES IN THE FUTURE. DR. FLETCHER COMPLETING WORK UP AT THIS TIME. ANTICIPATE ADMISSION. Ricky LYNN, [employer] ARCHITECT, [employer].
[2019-03-22 11:13] LABS: Absolute Neutrophil Count 8.4 X10^3/uL (2.0-7.7); Basophil# 0.02 X10^3/uL; Basophil% 0.2 % (0-1); Hematocrit 46.5 % (40-54); Hemoglobin 15.5 g/dL (13.0-16.5); Lymphocyte % 6.3 % (19-41); Mean Corp Hgb Conc 33.3 g/dL (32-36); Mean Corpuscular Hgb 31.1 pg (27.0-32.0); Mean Corpuscular Volume 93.2 fL (80-94); Mean Platelet Vol. 10.6 fl (6.2-12.0); Monocyte# 0.43 X10^3/uL; Monocyte% 4.5 % (0-10); NRBC Flagged by Analyzer 0 % (0-5); Neutrophil # 8.38 X10^3/uL (2.7-7.7); Neutrophil % 87.2 % (47-70); POSITIVE DIFFERENTIAL YES; Platelet Count 182 K/mm3 (150-450); RBC Distribution Width CV 13.2 % (11.6-14.6); RBC Distribution Width SD 45.5 fl (35.1-43.9); Red Blood Count 4.99 M/mm3 (4.6-6.2); White Blood Count 9.6 K/mm3 (4.4-11.0)
[2019-03-22 11:22] LABS: ALB/GLOB Ratio 0.9 RATIO (0.9-2.4); AST(SGOT) 14 U/L (15-37); Alanine Aminotransfer ALT/SGPT 64 U/L (16-61); Alkaline Phosphatase 55 U/L (45-117); Anion Gap 4 (5-15); BUN 41 mg/dL (7-18); BUN/Creat Ratio 29.9 RATIO (10-20); Calcium,Total 8.9 mg/dL (8.5-10.1); Chloride 100 mmol/L (98-107); Creatinine, Serum 1.37 mg/dL (0.70-1.30); EST Glomerular Filtration Rate 53 mL/min (>60); Est Glom Filt Rate - Afr Amer 65 mL/min (>60); Estimated Creatinine Clearance 44.44 ml/min; Globulin 3.5 g/dL (2.2-4.2); Glucose 180 mg/dL (74-106); Potassium 4.4 mmol/L (3.5-5.1); Protein, Total 6.5 g/dL (6.4-8.2); Sodium Level 138 mmol/L (136-145)
[2019-03-22 11:42] LABS: Lactic Acid 2.8 mmol/L (0.4-1.9)
[2019-03-22 11:43] LABS: BNP,B-Type NATRIURETIC PEPTIDE 244.9 pg/mL (0-100)
[2019-03-22 11:45] LABS: Differential Indicated SCAN CRITERIA MET
[2019-03-22 11:47] LABS: Reactive Lymphocyte RARE
[2019-03-22 13:18] LABS: Bacteria 0 SEEN /hpf (None Seen); Mucous, Urine 0 SEEN /hpf (<or=2+); Squamous Epithelial Cells - UA 0 SEEN /hpf (0-5)
[2019-03-22 13:33] LABS: Color, Urine Yellow (Yellow); Glucose, Dipstick 50 mg/dl (Normal); Ketone-Dipstick Negative (Negative); Leukocyte Esterase-Dipstick Negative /ul (Negative); Nitrite-Dipstick Negative (Negative); Occult Blood-Urine Negative /ul (Negative); Protein-Dipstick 15 mg/dl (Negative); Urine Bilirubin Dipstick Negative (Negative); Urine Clarity Sl. Cloudy (Clear); Urine Urobilinogen Normal (Normal)
[2019-03-22 13:46] LABS: Red Blood Cells-Urine 0-5 SEEN /hpf (0-5); White Blood Cells 0-5 SEEN /hpf (0-5)
--- NOTE | 2019-03-22 14:26 | HP.PCM_ITS ---
History of Present Illness Date of Admission: 03/22/19 Chief Complaint: altered mental status, mechanical falls The patient is a 78 year old M with an extensive past medical history as outlined. He was admitted through the ED on 03/22/2019 with a complaint of altered mental status and frequent falls. History was taken from patient and his daughter and . According to daughter, they noticed that patient has become more confused recently. He was also going weaker and needed more assistance in caring out activities of daily living. Daughter states she is unable to get him on and off the toilet without assistance. also stated that he had become more confused recently. He had also had several falls over the past couple of weeks and not falling 3 times in the last 2 days. The falls were mainly unwitnessed but family does not think he hit his head. They do not think he also passed out and think that his legs just gave way because he has grown increasingly weaker. They have not noticed any fever, though patient does admit to chills. He has not had any shortness of breath or cough or chest pain. He has no abdominal pain, nausea vomiting or diarrhea. Daughter states that she has noticed that he has been urinating more frequently than usual and patient denies any burning with urination. 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 However according to his daughter, patient has rather been deteriorating also receiving radiotherapy and has not improved as expected. Admission in the ED, temperature was 97.6 Fahrenheit and blood pressure was initially 158/87 with pulse rate of 70 and respiratory rate of 18. Chemistry showed creatinine of 1.37 and lactic acid of 2.8 with initial troponin of 0.065 and BNP of 244.9. CBC showed WBC of 9.6 with hemoglobin of 15.5. Chest x-ray showed stable elevation of left hemidiaphragm with persistent increased markings in the left lung likely postoperative in nature as well as s/p CABG. brain CT done showed chronic involutional changes of the brain and prominent edema in the white matter of the posterior left parietal and occipital lobes with focal area of increased attenuation which may represent an area of lymphoma. He has been admitted to be managed for debility due to frequent falls and indeterminate troponins. [] Past Medical History Past Medical History (Chronic Problems): Chronic Problems (Last Reviewed 03/14/19 @ 10:17 by Carmina Doty) Diabetes mellitus, type II (Chronic) CORRECTIONAL SERGEANT lymphoma (Chronic) Presence of stent in coronary artery (Chronic) PTCA/stent of the mid RCA 04/10/02 Atherosclerosis of coronary artery bypass graft without angina pectoris (Chronic) CABG x4- UMANZOR to LAD, SVG to the high lateral and lateral CX, SVG to PDA of the RCA 03/31/06 Hyperlipidemia (Chronic) Hypertension (Chronic) H/O aortic valve replacement (Chronic ~03/31/06) St. 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) Presence of cardiac pacemaker (Chronic) S/P insertion of iliac artery stent (Chronic) PAD (peripheral artery disease) (Chronic) Medical History: Medical History (Last Reviewed 03/14/19 @ 10:17 by Carmina Doty) Atherosclerosis of coronary artery bypass graft without angina pectoris (Chronic) I25.810 CABG x4- UMANZOR to LAD, SVG to the high lateral and lateral CX, SVG to PDA of the RCA 03/31/06 Hyperlipidemia (Chronic) E78.5 Hypertension (Chronic) I10 Paroxysmal atrial tachycardia (Acute) I47.1 Tachycardia (Acute) R00.0 Nonrheumatic aortic valve disorder (Acute) I35.9 Intermittent claudication (Acute) I73.9 Carotid bruit (Acute) R09.89 Left atrial mass (Acute) I51.9 AV block, 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) I44.2 Presence of cardiac pacemaker (Chronic) Z95.0 PAD (peripheral artery disease) (Chronic) I73.9 Diabetes E11.9 CVA (cerebral vascular accident) I63.9 Encephalopathy G93.40 PAOD (peripheral arterial occlusive disease) I77.9 Vascular dementia F01.50 White matter disease R90.82 Allergies No Known Allergies Allergy (Verified 03/22/19 10:12) Home Medications: Ambulatory Orders Medication Instructions Recorded Doxycycline [Vibramycin] 100 mg PO DAILY 12/31/12 Nitroglycerin [Nitrolingual Gordon] 0.4 mg SL PRN PRN 12/31/12 Atorvastatin Calcium [Lipitor] 40 mg PO QHS 02/12/19 Pioglitazone [Actos] 30 mg PO DAILY 02/12/19 Esomeprazole Mag Trihydrate 20 mg PO DAILY 02/14/19 [Nexium] Dexamethasone [Decadron] 4 mg PO BID 03/22/19 Memantine HCl 5 mg PO UD 03/22/19 Metoprolol Tartrate [Lopressor 50 mg PO BID 03/22/19 (beta annabel)] Ramipril [Altace] 5 mg PO DAILY 03/22/19 Surgical History: Surgical History (Last Reviewed 03/14/19 @ 10:17 by Carmina Doty) Presence of stent in coronary artery (Chronic) Z95.5 PTCA/stent of the mid RCA 04/10/02 H/O aortic valve replacement (Chronic) Onset Date: ~03/31/[address]. Live Bicor tissue valve 21mm 03/31/06 S/P insertion of iliac artery stent (Chronic) Z95.828 Aortocoronary bypass status Onset Date: ~03/31/06 Z95.1 CABG x4- UMANZOR to LAD, SVG to the high lateral and lateral CX, SVG to PDA of the RCA 03/31/06 Postsurgical percutaneous transluminal coronary angioplasty (PTCA) status Z98.61 PTCA/stent of the mid RCA 04/10/02 History of cholecystectomy Z90.49 History of lobectomy of lung Z90.2 Lt Upper Lobe @ [facility] 12/23/15 History of right hemicolectomy Z90.49 Surgical History: - - CABG x4, PCI, AVR, cholecystectomy, right hemicolectomy, left upper lobectomy, pacemaker placement, iliac artery stent, recent brain biopsy. Psychiatric History: No pertinent psych hx Smoking Status: Former smoker - *Family History Maternal Family History: Family History (Last Reviewed 03/14/19 @ 10:17 by Carmina Doty) Mother Diabetes Dementia Hypertension Father Colon cancer History Items: Diabetes, Dementia, Heart Disease, Hypertension Paternal Family History: Family History (Last Reviewed 03/14/19 @ 10:17 by Carmina Doty) Mother Diabetes Dementia Hypertension Father Colon cancer History Items: - - Patient with paternal family history of colon cancer. Review of Systems Constitutional: Reports: Chills, Malaise, Weakness, Fatigue. Denies: Anorexia, Fever, Night Sweats Eyes: Denies: Blurred vision HEENT: Denies: Head Aches, Sinus Congestion, Sinus Drainage Cardiovascular: Denies: Chest Pain, Palpitations Respiratory: Denies: Cough, Shortness of Breath, Shortness of breath at rest, Shortness of breath upon exertion, Sputum production Gastrointestinal: Denies: Abdominal Pain, Nausea, Vomiting Genitourinary: Reports: Frequency, Incontinence. Denies: Dysuria, Hematuria, Hesitancy, Nocturia, Retention, Urgency Musculoskeletal: Denies: Joint Pain, Joint Tenderness Skin: Denies: Rash, Wounds Neurological: Denies: Numbness, Tingling, Focal weakness Psychiatric: Denies: Anxiety, Depression, Homicidal Ideations, Suicidal Ideations Hematologic/ Lymphatic: Denies: Easy Bruising, Easy Bleeding VTE Information - Inpt Only VTE Present on Admission: No VTE Pharm Prophylaxis ordered?: Yes Patient Problems: Active and Suspected Problems (Last Reviewed 03/14/19 @ 10:17 by Carmina Doty) Debility (Acute) Frequent falls (Acute) - Physical Exam Vitals/I&O's: Vital Signs Temp Pulse Resp BP Pulse Ox 97.6 F L 70 14 112/65 96 03/22/19 10:06 03/22/19 14:06 03/22/19 14:06 03/22/19 14:06 03/22/19 14:06 Oxygen Delivery Method Room Air Weight: 192 lb 3.889 oz Body Mass Index (BMI) 28.3 General: Alert, Cooperative, No apparent distress, Lethargic HEENT: Atraumatic, PERRLA, EOMI, Normocephalic Oral: Dry Mucosa Neck: Supple, No JVD, Negative Carotid Bruits Lungs: Clear to auscultation, Normal air movement, No rhonchi, No wheeze Cardiovascular: Regular rate, Regular Rhythm, Normal S1, Normal S2, No murmurs Abdomen: Bowel Sounds Present, Soft, Non Tender, Non-Distended, No Hepato-splenomegaly Extremities: No clubbing, No cyanosis, No edema, Capillary Refill Less than 3 Seconds Skin: No rashes, No breakdown Musculoskeletal: No Tenderness to Palpation of Joints or Extremities Lymphatic: No Cervical, Supraclavicular, or Inguinal Adenopathy Neurological: Cranial nerves II-XII grossly intact, - - power in all extremities is 5/5; Psych/Mental Status: Normal Affect Laboratory Results 03/22/19 10:15: WBC 9.6, RBC 4.99, Hgb 15.5, Hct 46.5, MCV 93.2, MCH 31.1, MCHC 33.3, RDW Std Deviation 45.5 H, RDW Coeff of Ni 13.2, Plt Count 182, MPV 10.6, Immature Gran % (Auto) 1.800 H, Neut % (Auto) 87.2 H, Lymph % (Auto) 6.3 L, Bath % (Auto) 4.5, Eos % (Auto) 0.0, Baso % (Auto) 0.2, Absolute Neuts (auto) 8.4 H, Absolute Lymphs (auto) 0.60 L, Nucleated RBC % 0, Differential Comment COMMENT, Reactive Lymphocytes RARE 03/22/19 10:15: Sodium 138, Potassium 4.4, Chloride 100, Carbon Dioxide 34.0 H, Anion Gap 4 L, BUN 41 H, Creatinine 1.37 H, Estim Creat Clear Calc 44.44, Est GFR (MDRD) Af Amer 65, Est GFR (MDRD) Non-Af 53 L, BUN/Creatinine Ratio 29.9 H, Glucose 180 H, Calcium 8.9, Total Bilirubin 0.70, AST 14 L, ALT 64 H, Alkaline Phosphatase 55, Troponin I 0.065 H, Total Protein 6.5, Albumin 3.0 L, Globulin 3.5, Albumin/Globulin Ratio 0.9 03/22/19 10:15: B-Natriuretic Peptide 244.9 H 03/22/19 11:00: Lactic Acid 2.8 H* 03/22/19 13:05: Urine Color Yellow, Urine Clarity Sl. Cloudy, Urine pH 7.0, Ur Specific [place] 1.010, Urine Protein 15 H, Urine Glucose (UA) 50 H, Urine Ketones Negative, Urine Occult Blood Negative, Urine Nitrite Negative, Urine Bilirubin Negative, Urine Urobilinogen Normal, Ur Leukocyte Esterase Negative, Urine RBC 0-5 SEEN, Urine WBC 0-5 SEEN, Ur Squamous Epith Cells 0 SEEN, Urine Bacteria 0 SEEN, Urine Mucus 0 SEEN Diagnostic Data Brain CT 03/22/19 10:39 IMPRESSION: Chronic involutional changes of the brain. Prominent edema in the white matter of the posterior left parietal and occipital lobes with focal area of increased attenuation. This may represent an area of lymphoma. A repeat examination following IV contrast or MRI examination is recommended. Electronically Signed: Zain Collier, at 12:02 EST , Service support , Chest X-Ray 03/22/19 10:43 IMPRESSION: Status post CABG. Stable elevation of the left hemidiaphragm with persistent increased markings in the left lung most likely postoperative in nature. 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 1. Debility due to mechanical falls and CORRECTIONAL SERGEANT lymphoma * admit to PCU * UA is negative for UTI; he doesnt have an elevated wbc and CXR showed no evidence of infection * consult PT/OT * fall precautions. * check orthostatics * 2. Mechanical falls * may be due to CORRECTIONAL SERGEANT lymphoma, as daughter says he is not responding to treatment as expected * management as under 1, * fall precautions * 3. Indeterminate troponins: * initial troponin is 0.065. Has no complaints of chest pain. * will cycle troponins * SL nitroglycerin prn. taken off his antipltelets and anticoagulant therapy by oncologists, per his cardiology visit note, from 03/11/2019 * 4. 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 * on decadrone- decadron was reduced to 2mg twice daily per radiation oncology progress note from 03/20/2019 * LP done 03/12/2019 showed total protein of 165 and glucose of 110, and wbc of 0.010 * 5. Elevated lactic acid: lactic acid was 2.8. 5. CAD: * s/p CABG. * On atorvastatin and metoprolol. 6. Hypertension: On metoprolol. Also on ramipril. 7. Paroxysmal atrial tachycardia s/p pacemaker: Stable 8. Vascular dementia: On memantine. 9. Uncomplicated type 2 diabetes mellitus: On pioglitazone 30 mg daily. DVT prophylaxis: SCDs Disposition: will need placement. PT/OT consulted. Code Visit Inpatient E&M: 87930 Init Hosp L3
--- NOTE | 2019-03-22 14:34 | ED.VISSUMM ---
- ER Visit Summary Date of Service: 03/22/19 Chief Complaint: Frequent falls History of Present Illness: The patient is a 78 M who presents with frequent falls that have been getting worse over the past 10 days. Patient has fallen 3 times in the last 2 days. Patient fell twice last night. Patient is having difficulty ambulating today. Patient has a history of SU[employer]OR [employer]ING [employer]ING lymphoma. Family states the patient is somewhat confused. states the patient is having difficulty lifting his legs. states that their basement steps are open and she is concerned that he may fall down the steps if he is at home. Physical Examination: Vital signs are stable. Patient is afebrile. Patient is in no acute distress. Oral mucosa is pink and moist. Neck is supple. Trachea is midline. There is no JVD. Heart was regular rate and rhythm. Lungs are clear and equal bilaterally. Abdomen is soft. Bowel sounds are normal. There is no tenderness. Cranial nerves II through XII are intact. Strength is 5 out of 5 bilaterally in the upper and 4 out of 5 bilaterally in the lower extremities. Patient was able to hold both legs off of the bed for 5 seconds however he had difficulty lifting them off of the bed by himself. There are no sensory deficits noted. Test Results: EKG showed a paced rhythm with a rate of 70. There is a left bundle branch block pattern noted. This was unchanged compared to previous EKG dated 03/07/2019. CBC was normal. Basic metabolic profile showed a creatinine of 1.37 which is stable compared to previous results. Urinalysis does not show any evidence of urinary tract infection. Troponin was 0.065. BNP was slightly elevated at 244.9. Lactate was elevated at 2.8. CT scan of the brain was obtained. There is no acute intracranial abnormality. PA and lateral chest x-ray was obtained. There is no acute cardiopulmonary process. There are chronic changes. These were interpreted by the radiologist and myself. Emergency Department Course and Treatment: Social work was in to evaluate the patient and reported that the patient needs to be inpatient for 3 days to be be able to be placed in a senior care facility. Case was discussed with the hospitalist. Patient will be admitted to PCU. Patient and family understood and were agreeable with the plan. All questions were answered. Disposition: Admit to hospital Impression: 1. Debility 2. Frequent falls This note was generated with Dragon dictation software. It may contain incorrect words, spelling, and punctuation that were not noted in review of the chart prior to signing ED Disposition - Plan for ED Patient: Disposition: Acute Care Hospital [facility] Diagnosis: Debility, Frequent falls Referrals: Hunter Becker Chi, MD [Primary Care Provider] -
[2019-03-22 15:03] LABS: Reflex Lactate? Y
[2019-03-22 16:04] LABS: Lactic Acid 2.4 mmol/L (0.4-1.9)
--- NOTE | 2019-03-22 16:05 | ED.RN ---
LACTIC ACID 2.4, RESULT CALLED TO PCU, GIVEN TO
--- NOTE | 2019-03-22 17:00 | NURSING ---
Discussed safety of patient with and daughter. Both the patient's and daughter give verbal consent for the use of a room camera to promote patient safety.
[2019-03-22] MEDS: Insulin Lispro 100 UNIT/ML INSULN.PEN SC ×2 (17:09→22:24)
[2019-03-22] MEDS: dexAMETHasone 4 MG Tablet PO (17:10)
[2019-03-22 17:16] LABS: Bedside Glucose 169 mg/dL (70-110)
[2019-03-22] MEDS: Furosemide 40 MG/4 ML Vial IV (18:28)
[2019-03-22] MEDS: 0.9% Saline Lock 10 ML Syringe IV (18:28)
[2019-03-22] MEDS: Atorvastatin Calcium 40 MG Tablet PO (22:24)
[2019-03-22] MEDS: Metoprolol Tartrate 50 MG Tablet PO (22:24)
[2019-03-22 22:36] LABS: Bedside Glucose 234 mg/dL (70-110)
[2019-03-23] VITALS (11 sets, daily range): BP systolic 98–149; BP diastolic 55–88; PULSE 57–87; RESP 14–22; TEMP 36.3–36.9; O2SAT 95–98
[2019-03-23 00:20] LABS: Bedside Glucose 220 mg/dL (70-110)
--- NOTE | 2019-03-23 05:55 | ECHOD_ITS ---
Reason For Study: Heart Failure Procedure This was a 2D Doppler, Color Flow transthoracic echocardiogram. Exam performed portable in patient room. Left Ventricle Normal LV size. Concentric left ventricular hypertrophy. Left ventricular systolic function is normal. The estimated ejection fraction is 60 %. Transmitral doppler flow suggestive of impaired relaxation of left ventricle. Stage 1 diastolic dysfunction. Right Ventricle Normal right ventricle. Normal systolic function. Atria The left atrium is mildly enlarged. Normal right atrium. Mitral Valve The mitral valve is structurally normal. No prolapse or stenosis seen. Mild (1+) mitral valve insufficiency. Tricuspid Valve Normal tricuspid valve. Mild tricuspid valve insufficiency. Aortic Valve There is bioprosthetic aortic valve based on history. Aortic valve was not clearly visualised. Based on the gradients of peak gradient of 37mmHg and mean gradient of 20mmHg there is evidence of mild to moderate Aortic stenosis and this has not changed since the last echocardiogram. No aortic valve insufficiency. MMode/2D Measurements & Calculations LVIDd: 4.2 cm IVSd: 1.8 cm LVOT diam: 2.0 cm LVIDs: 3.0 cm LVPWd: 1.6 cm FS: 29.7 % LVOT area: 3.0 cm2 Ao root diam: 3.3 cm LAV(MOD-bp): 41.7 ml LVAd ap4: 18.7 cm2 LAV(MOD-bp) Indexed: 20.7 ml/m2 EDV(MOD-sp4): 44.1 ml LAV(MOD-sp2): 41.4 ml EDV(sp4-el): 43.4 ml LAV(MOD-sp4): 37.6 ml LVAs ap4: 10.5 cm2 ESV(MOD-sp4): 17.1 ml ESV(sp4-el): 15.9 ml EF(MOD-sp4): 61.3 % EF(sp4-el): 63.4 % SV(MOD-sp4): 27.1 ml SV(sp4-el): 27.5 ml LA A4 area: 15.6 cm2 LA dimension(2D): 4.6 cm RA A4 area: 17.8 cm2 Time Measurements MV dec time: 0.05 sec Doppler Measurements & Calculations MV E max moisés: 94.8 cm/sec Lat Peak E' Moisés: 3.2 cm/sec Med Peak E' Moisés: 2.6 cm/sec MV A max moisés: 153.9 cm/sec E/E' lat: 30.0 E/E' med: 35.8 MV E/A: 0.62 MV V2 max: 164.2 cm/sec MV P1/2t max moisés: 91.3 cm/sec Ao V2 max: 300.3 cm/sec MV max P.8 mmHg MV P1/2t: 76.9 msec Ao max P.1 mmHg MV V2 mean: 95.5 cm/sec MV dec slope: 347.9 cm/sec2 Ao V2 mean: 208.6 cm/sec MV mean P.2 mmHg Ao mean P.5 mmHg MV V2 VTI: 34.3 cm MVA(P1/2t): 2.9 cm2 Ao V2 VTI: 60.3 cm MVA(VTI): 2.2 cm2 BHAKTI(I,D): 1.2 cm2 BHAKTI(V,D): 1.2 cm2 LV V1 max: 115.0 cm/sec SV(LVOT): 73.8 ml PA V2 max: 67.9 cm/sec LV V1 max P.4 mmHg LV V1 mean P.0 mmHg LV V1 mean: 81.1 cm/sec LV V1 VTI: 24.4 cm Interpretation Summary Normal LV size. Concentric left ventricular hypertrophy. Left ventricular systolic function is normal. The estimated ejection fraction is 60 %. Transmitral doppler flow suggestive of impaired relaxation of left ventricle Stage 1 diastolic dysfunction. The left atrium is mildly enlarged. Mild (1+) mitral valve insufficiency. Mild tricuspid valve insufficiency. There is bioprosthetic aortic valve based on history. Aortic valve was not clearly visualised. Based on the gradients of peak gradient of 37mmHg and mean gradient of 20mmHg there is evidence of mild to moderate Aortic stenosis and this has not changed since the last echocardiogram. Ordering Physician: Ana Lilia Mirza Referring Physician: Hunter Becker Chi Performed By: Kacie Freitas RDCS, RVT
[2019-03-23 06:37] LABS: Absolute Lymphocyte Count 0.67 X10^3/uL (0.83-4.51); Absolute Neutrophil Count 6.8 X10^3/uL (2.0-7.7); Basophil# 0.02 X10^3/uL; Basophil% 0.2 % (0-1); Hematocrit 45.3 % (40-54); Hemoglobin 15.1 g/dL (13.0-16.5); Lymphocyte # 0.67 X10^3/ul (4.0); Lymphocyte % 8.3 % (19-41); Mean Corp Hgb Conc 33.3 g/dL (32-36); Mean Corpuscular Hgb 30.6 pg (27.0-32.0); Mean Corpuscular Volume 91.7 fL (80-94); Mean Platelet Vol. 10.4 fl (6.2-12.0); Monocyte# 0.51 X10^3/uL; Monocyte% 6.3 % (0-10); NRBC Flagged by Analyzer 0 % (0-5); Neutrophil # 6.76 X10^3/uL (2.7-7.7); Neutrophil % 83.4 % (47-70); Platelet Count 186 K/mm3 (150-450); RBC Distribution Width CV 13.3 % (11.6-14.6); RBC Distribution Width SD 44.8 fl (35.1-43.9); Red Blood Count 4.94 M/mm3 (4.6-6.2); White Blood Count 8.1 K/mm3 (4.4-11.0)
[2019-03-23 06:46] LABS: Bedside Glucose 141 mg/dL (70-110)
[2019-03-23 06:59] LABS: Anion Gap 6 (5-15); BUN 42 mg/dL (7-18); BUN/Creat Ratio 31.3 RATIO (10-20); Calcium,Total 8.6 mg/dL (8.5-10.1); Chloride 97 mmol/L (98-107); Creatinine, Serum 1.34 mg/dL (0.70-1.30); EST Glomerular Filtration Rate 55 mL/min (>60); Est Glom Filt Rate - Afr Amer 66 mL/min (>60); Estimated Creatinine Clearance 43.96 ml/min; Glucose 168 mg/dL (74-106); Potassium 3.9 mmol/L (3.5-5.1); Sodium Level 138 mmol/L (136-145)
[2019-03-23] MEDS: Doxycycline 100 MG CAPSULE PO (09:13)
[2019-03-23] MEDS: Pantoprazole Sodium 20 MG Tablet PO (09:13)
[2019-03-23] MEDS: Ramipril 5 MG Capsule PO (09:13)
[2019-03-23] MEDS: Memantine Hydrochloride 5 MG Tablet PO (09:13)
[2019-03-23] MEDS: Pioglitazone Hydrochloride 30 MG Tablet PO (09:13)
[2019-03-23] MEDS: dexAMETHasone 4 MG Tablet PO ×2 (09:13→17:30)
[2019-03-23] MEDS: Metoprolol Tartrate 50 MG Tablet PO ×2 (09:14→21:26)
--- NOTE | 2019-03-23 10:11 | PN_ITS ---
<ChongRaissa - Last Filed: 03/23/19 11:01> Patient Problems: Active and Suspected Problems (Last Reviewed 03/14/19 @ 10:17 by Carmina Doty) Debility (Acute) Frequent falls (Acute) Subjective: Patient seen and examined. No acute events overnight. States he is at [facility], otherwise oriented. No family at bedside. Plan for SNF. - Physical Exam Vitals/I&O's: Vital Signs Temp Pulse Resp BP Pulse Ox 98.1 F 65 16 149/74 H 97 03/23/19 09:08 03/23/19 09:14 03/23/19 09:08 03/23/19 09:14 03/23/19 09:08 Oxygen Delivery Method Room Air Weight: 181 lb 14.102 oz Body Mass Index (BMI) 27.1 Intake and Output for Last 24 Hours 03/21/19 03/22/19 03/23/19 23:59 23:59 23:59 Intake Total 340 / 340 120 / 120 Output Total 1550 / 1550 725 / 725 Balance -1210 / -1210 -605 / -605 General: Alert, Oriented x3, Cooperative HEENT: Atraumatic, PERRLA, EOMI, Normocephalic Neck: Supple, No JVD, Negative Carotid Bruits Lungs: Clear to auscultation, Normal air movement Cardiovascular: Regular rate, Regular Rhythm, Normal S1, Normal S2, No murmurs Abdomen: Bowel Sounds Present, Soft, Non Tender, Non-Distended Extremities: No clubbing, No cyanosis, No edema, Capillary Refill Less than 3 Seconds Skin: No rashes, No breakdown Musculoskeletal: No Tenderness to Palpation of Joints or Extremities Neurological: Cranial nerves II-XII grossly intact, Neuro grossly intact Psych/Mental Status: Normal Affect, Appropriate Laboratory Results 03/22/19 10:15: WBC 9.6, RBC 4.99, Hgb 15.5, Hct 46.5, MCV 93.2, MCH 31.1, MCHC 33.3, RDW Std Deviation 45.5 H, RDW Coeff of Ni 13.2, Plt Count 182, MPV 10.6, Immature Gran % (Auto) 1.800 H, Neut % (Auto) 87.2 H, Lymph % (Auto) 6.3 L, [place] % (Auto) 4.5, Eos % (Auto) 0.0, Baso % (Auto) 0.2, Absolute Neuts (auto) 8.4 H, Absolute Lymphs (auto) 0.60 L, Nucleated RBC % 0, Differential Comment COMMENT, Reactive Lymphocytes RARE 03/22/19 10:15: Sodium 138, Potassium 4.4, Chloride 100, Carbon Dioxide 34.0 H, Anion Gap 4 L, BUN 41 H, Creatinine 1.37 H, Estim Creat Clear Calc 44.44, Est GFR (MDRD) Af Amer 65, Est GFR (MDRD) Non-Af 53 L, BUN/Creatinine Ratio 29.9 H, Glucose 180 H, Calcium 8.9, Total Bilirubin 0.70, AST 14 L, ALT 64 H, Alkaline Phosphatase 55, Troponin I 0.065 H, Total Protein 6.5, Albumin 3.0 L, Globulin 3.5, Albumin/Globulin Ratio 0.9 03/22/19 10:15: B-Natriuretic Peptide 244.9 H 03/22/19 11:00: Lactic Acid 2.8 H* 03/22/19 13:05: Urine Color Yellow, Urine Clarity Sl. Cloudy, Urine pH 7.0, Ur Specific [place] 1.010, Urine Protein 15 H, Urine Glucose (UA) 50 H, Urine Ketones Negative, Urine Occult Blood Negative, Urine Nitrite Negative, Urine Bilirubin Negative, Urine Urobilinogen Normal, Ur Leukocyte Esterase Negative, Urine RBC 0-5 SEEN, Urine WBC 0-5 SEEN, Ur Squamous Epith Cells 0 SEEN, Urine Bacteria 0 SEEN, Urine Mucus 0 SEEN 03/22/19 15:30: Lactic Acid 2.4 H* 03/22/19 16:50: POC Glucose 169 H 03/22/19 17:00: Troponin I 0.046 H 03/22/19 20:18: Troponin I 0.053 H 03/22/19 22:24: POC Glucose 234 H 03/23/19 00:10: POC Glucose 220 H 03/23/19 05:30: WBC 8.1, RBC 4.94, Hgb 15.1, Hct 45.3, MCV 91.7, MCH 30.6, MCHC 33.3, RDW Std Deviation 44.8 H, RDW Coeff of Ni 13.3, Plt Count 186, MPV 10.4, Immature Gran % (Auto) 1.800 H, Neut % (Auto) 83.4 H, Lymph % (Auto) 8.3 L, [place] % (Auto) 6.3, Eos % (Auto) 0.0, Baso % (Auto) 0.2, Absolute Neuts (auto) 6.8, Absolute Lymphs (auto) 0.67 L, Nucleated RBC % 0 03/23/19 05:30: Sodium 138, Potassium 3.9, Chloride 97 L, Carbon Dioxide 35.0 H, Anion Gap 6, BUN 42 H, Creatinine 1.34 H, Estim Creat Clear Calc 43.96, Est GFR (MDRD) Af Amer 66, Est GFR (MDRD) Non-Af 55 L, BUN/Creatinine Ratio 31.3 H, Glucose 168 H, Calcium 8.6 03/23/19 06:35: POC Glucose 141 H Current Medications Atorvastatin Calcium (Lipitor) 40 mg PO QHS [facility] Last Admin: 03/22/19 22:24 Dose: 40 mg Documented by: [facility] Last Admin: 03/23/19 09:13 Dose: 4 mg Documented by: Doxycycline Monohydrate (Doxycycline) 100 mg PO DAILY [facility] Last Admin: 03/23/19 09:13 Dose: 100 mg Documented by: Furosemide (Lasix) 40 mg IV BIDLX [facility] Last Admin: 03/22/19 18:28 Dose: 40 mg Documented by: Glucagon () 1 mg IM .X1 PRN PRN Reason: Hypoglycemia Dextrose (Dextrose 10%-Water) 250 mls @ 999 mls/hr IV .Q16M PRN; Protocol PRN Reason: HYPOGLYCEMIA Insulin Human Lispro (Humalog Kwikpen (Bkc)) 0 unit SC [facility]; Protocol Last Admin: 03/23/19 06:37 Dose: Not Given Documented by: Memantine (Namenda) 5 mg PO BID [facility] Stop: 03/30/19 22:01 Memantine (Namenda) 10 mg PO DAILY [facility] Stop: 04/06/19 10:01 Memantine (Namenda) 5 mg PO DAILY@2200 [facility] Stop: 04/06/19 22:01 Memantine (Namenda) 10 mg PO BID [facility] Metoprolol Tartrate (Lopressor (Beta Vin)) 50 mg PO BID [facility] Last Admin: 03/23/19 09:14 Dose: 50 mg Documented by: Nitroglycerin (Nitrostat) 0.4 mg SUBLINGUAL Q5M PRN PRN Reason: CARDIAC/CHEST PAIN Pantoprazole Sodium (Protonix) 20 mg PO DAILY [facility] Last Admin: 03/23/19 09:13 Dose: 20 mg Documented by: Pioglitazone HCl (Actos) 30 mg PO DAILY [facility] Last Admin: 03/23/19 09:13 Dose: 30 mg Documented by: Ramipril (Altace) 5 mg PO DAILY [facility] Last Admin: 03/23/19 09:13 Dose: 5 mg Documented by: Sodium Chloride () 10 - 40 ml IV UD PRN PRN Reason: SALINE FLUSH Last Admin: 03/22/19 18:28 Dose: 10 ml Documented by: Medical Necessity - Tobacco Use Smoking Status: Former smoker Tobacco Use: Cigarettes Assessment/Plan All Active Problems (Last Reviewed 03/14/19 @ 10:17 by Carmina Doty) Debility (Acute) Frequent falls (Acute) Encephalopathy acute (Acute) Headache (Acute) 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 Debility with falls secondary to aggressive B-cell lymphoma with [employer] involvement-Biopsy corpus colossal lesion 02/19/2019, final pathology demonstrated aggressive B-cell lymphoma. Following with Dr. Tomlinson. Undergoing radiotherapy, per daughter patient has not been responding as well as expected. Continue Decadron. Family requesting SNF placement. PT/OT. Fall precautions. CM consult for DC planning. 2. Indeterminate troponin-denies chest pain. EKG without ST-T changes. 3. Lactic acidosis-suspect reactive. No evidence of infection. UA and chest x-ray unremarkable. 4. Valvular heart disease status post aortic valve replacement 5. Dementia, unclear type-continue Aricept regimen. 6. CAD status post CABG x4 and PCI-continue statin, metoprolol, KAYCE inhibitor. 7. PAOD status post iliac artery stent-continue statin, metoprolol, KAYCE inhibitor. 8. 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 Hypertension/hyperlipidemia-continue metoprolol, ramipril, statin. 10. History of CVA-continue statin. 12. GERD-continue PPI. 13. Chronic kidney disease stage III-stable. 14. Type 2 diabetes mellitus-continue home oral regimen with sliding scale insulin. DVT prophylaxis-Heparin sc This patient was seen by GELY Velarde under the supervision of Dr. Olson. <Uvaldo Olson - Last Filed: 03/23/19 13:20> - Physical Exam Vitals/I&O's: Vital Signs Temp Pulse Resp BP Pulse Ox 98.1 F 69 16 149/74 H 97 03/23/19 09:08 03/23/19 11:42 03/23/19 09:08 03/23/19 09:14 03/23/19 09:08 Oxygen Delivery Method Room Air Weight: 82.5 kg Body Mass Index (BMI) 27.1 Intake and Output for Last 24 Hours 03/21/19 03/22/19 03/23/19 23:59 23:59 23:59 Intake Total 340 / 340 120 / 120 Output Total 1550 / 1550 725 / 725 Balance -1210 / -1210 -605 / -605 Laboratory Results 03/22/19 13:05: Urine Color Yellow, Urine Clarity Sl. Cloudy, Urine pH 7.0, Ur Specific [place] 1.010, Urine Protein 15 H, Urine Glucose (UA) 50 H, Urine Ketones Negative, Urine Occult Blood Negative, Urine Nitrite Negative, Urine Bilirubin Negative, Urine Urobilinogen Normal, Ur Leukocyte Esterase Negative, Urine RBC 0-5 SEEN, Urine WBC 0-5 SEEN, Ur Squamous Epith Cells 0 SEEN, Urine Bacteria 0 SEEN, Urine Mucus 0 SEEN 03/22/19 15:30: Lactic Acid 2.4 H* 03/22/19 16:50: POC Glucose 169 H 03/22/19 17:00: Troponin I 0.046 H 03/22/19 20:18: Troponin I 0.053 H 03/22/19 22:24: POC Glucose 234 H 03/23/19 00:10: POC Glucose 220 H 03/23/19 05:30: WBC 8.1, RBC 4.94, Hgb 15.1, Hct 45.3, MCV 91.7, MCH 30.6, MCHC 33.3, RDW Std Deviation 44.8 H, RDW Coeff of Ni 13.3, Plt Count 186, MPV 10.4, Immature Gran % (Auto) 1.800 H, Neut % (Auto) 83.4 H, Lymph % (Auto) 8.3 L, [place] % (Auto) 6.3, Eos % (Auto) 0.0, Baso % (Auto) 0.2, Absolute Neuts (auto) 6.8, Absolute Lymphs (auto) 0.67 L, Nucleated RBC % 0 03/23/19 05:30: Sodium 138, Potassium 3.9, Chloride 97 L, Carbon Dioxide 35.0 H, Anion Gap 6, BUN 42 H, Creatinine 1.34 H, Estim Creat Clear Calc 43.96, Est GFR (MDRD) Af Amer 66, Est GFR (MDRD) Non-Af 55 L, BUN/Creatinine Ratio 31.3 H, Glucose 168 H, Calcium 8.6 03/23/19 06:35: POC Glucose 141 H 03/23/19 11:07: POC Glucose 167 H Current Medications Atorvastatin Calcium (Lipitor) 40 mg PO QHS [facility] Last Admin: 03/22/19 22:24 Dose: 40 mg Documented by: Dexamethasone (Decadron) 4 mg PO BIDCM [facility] Last Admin: 03/23/19 09:13 Dose: 4 mg Documented by: Doxycycline Monohydrate (Doxycycline) 100 mg PO DAILY [facility] Last Admin: 03/23/19 09:13 Dose: 100 mg Documented by: Furosemide (Lasix) 40 mg IV BIDLX [facility] Last Admin: 03/23/19 10:37 Dose: 40 mg Documented by: Glucagon () 1 mg IM .X1 PRN PRN Reason: Hypoglycemia Heparin Sodium (Porcine) (Heparin Na) 5,000 unit SC Q12 [facility] Dextrose (Dextrose 10%-Water) 250 mls @ 999 mls/hr IV .Q16M PRN; Protocol PRN Reason: HYPOGLYCEMIA Insulin Human Lispro (Humalog Kwikpen (Bkc)) 0 unit SC [facility]; Protocol Last Admin: 03/23/19 11:08 Dose: 2 u Documented by: Memantine (Namenda) 5 mg PO BID [facility] Stop: 03/30/19 22:01 Memantine (Namenda) 10 mg PO DAILY [facility] Stop: 04/06/19 10:01 Memantine (Namenda) 5 mg PO DAILY@2200 [facility] Stop: 04/06/19 22:01 Memantine (Namenda) 10 mg PO BID [facility] Metoprolol Tartrate (Lopressor (Beta Vin)) 50 mg PO BID [facility] Last Admin: 03/23/19 09:14 Dose: 50 mg Documented by: Nitroglycerin (Nitrostat) 0.4 mg SUBLINGUAL Q5M PRN PRN Reason: CARDIAC/CHEST PAIN Pantoprazole Sodium (Protonix) 20 mg PO DAILY [facility] Last Admin: 03/23/19 09:13 Dose: 20 mg Documented by: Pioglitazone HCl (Actos) 30 mg PO DAILY [facility] Last Admin: 03/23/19 09:13 Dose: 30 mg Documented by: Ramipril (Altace) 5 mg PO DAILY [facility] Last Admin: 03/23/19 09:13 Dose: 5 mg Documented by: Sodium Chloride () 10 - 40 ml IV UD PRN PRN Reason: SALINE FLUSH Last Admin: 03/23/19 10:37 Dose: 20 ml Documented by: Assessment/Plan This patient was seen in conjunction with GELY Velarde . I have independently interviewed and examined the patient and reviewed pertinent historical, laboratory, and other data. Please refer to GELY Velarde note for details of this patient's presentation, findings, and recommendations. I have reviewed GELY Velarde note and concur with documented findings. In brief, patient is a 88-year-old gentleman with multiple comorbidities admitted with progressive generalized weakness and falls. An assessment of physical debility made admitted to regular nursing floor for further management Physical Examination: GENERAL: cooperative HEENT: Atraumatic; EYES; Anicteric, NECK; supple, normal thyroid, RESPIRATORY: Diminished to auscultation CARDIOVASCULAR: Regular S1 S2, GI: soft, normoactive bowel sounds, : No Renal angle tenderness; EXTREMITIES: No edema, no clubbing, MUSCULOSKELETAL: no muscle waisting NEURO: Awake; no lateralizing signs. SKIN: No Rash PSYCH; Flat affect Assessment: 1. 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 Lactic acidosis of undetermined etiology 4. Elevated troponin secondary to demand ischemia 5. Dementia 6. Coronary artery disease with previous CABG and subsequent stent placement 7. Peripheral arterial disease with previous iliac stent placement 8. Conduction system disorder status post pacemaker placement 9. Essential hypertension 10. Dyslipidemia 11. GERD 12. History of CVA 13. Diabetes mellitus type 2 14. DVT prophylaxis-Heparin sc Recommendations: 1. I have discussed the results of my overview and impressions with the patient 2. Options for management were reviewed Code Visit OBSV E&M: 69643 Subsequent observation care L3
[2019-03-23] MEDS: Furosemide 40 MG/4 ML Vial IV ×2 (10:37→17:30)
[2019-03-23] MEDS: 0.9% Saline Lock 10 ML Syringe IV ×2 (10:37→17:31)
[2019-03-23] MEDS: Insulin Lispro 100 UNIT/ML INSULN.PEN SC ×3 (11:08→21:30)
[2019-03-23 11:41] LABS: Bedside Glucose 167 mg/dL (70-110)
[2019-03-23 17:25] LABS: Bedside Glucose 186 mg/dL (70-110)
[2019-03-23] MEDS: Atorvastatin Calcium 40 MG Tablet PO (21:26)
[2019-03-23] MEDS: Heparin Injection (Vial) 5,000 UNIT/ML VIAL 5000 UNIT SC (21:26)
[2019-03-23 21:45] LABS: Bedside Glucose 286 mg/dL (70-110)
[2019-03-24] VITALS (11 sets, daily range): BP systolic 91–113; BP diastolic 47–78; PULSE 61–77; RESP 17–20; TEMP 36.3–36.7; O2SAT 96–98
[2019-03-24 06:31] LABS: Hematocrit 47.6 % (40-54); Hemoglobin 15.7 g/dL (13.0-16.5); Mean Corpuscular Hgb 29.7 pg (27.0-32.0); Mean Corpuscular Volume 90.2 fL (80-94); Mean Platelet Vol. 10.5 fl (6.2-12.0); Platelet Count 185 K/mm3 (150-450); RBC Distribution Width CV 13.2 % (11.6-14.6); Red Blood Count 5.28 M/mm3 (4.6-6.2)
[2019-03-24 06:46] LABS: Anion Gap 6 (5-15); BUN 52 mg/dL (7-18); BUN/Creat Ratio 40.9 RATIO (10-20); Calcium,Total 8.4 mg/dL (8.5-10.1); Chloride 96 mmol/L (98-107); Creatinine, Serum 1.27 mg/dL (0.70-1.30); EST Glomerular Filtration Rate 58 mL/min (>60); Est Glom Filt Rate - Afr Amer 71 mL/min (>60); Estimated Creatinine Clearance 46.38 ml/min; Glucose 129 mg/dL (74-106); Potassium 4.2 mmol/L (3.5-5.1); Sodium Level 135 mmol/L (136-145)
[2019-03-24 07:11] LABS: Bedside Glucose 138 mg/dL (70-110)
--- NOTE | 2019-03-24 09:16 | PN_ITS ---
<Raissa Schwarz - Last Filed: 03/24/19 09:18> Patient Problems: Active and Suspected Problems (Last Reviewed 03/14/19 @ 10:17 by Carmina Doty) Debility (Acute) Frequent falls (Acute) Subjective: Patient seen and examined. No acute events overnight. Denies complaints. Awaiting SNF acceptance. - Physical Exam Vitals/I&O's: Vital Signs Temp Pulse Resp BP Pulse Ox 97.4 F L 70 20 H 111/78 96 03/24/19 03:00 03/24/19 07:13 03/24/19 03:00 03/24/19 03:00 03/24/19 03:00 Oxygen Delivery Method Room Air Weight: 180 lb 15.992 oz Body Mass Index (BMI) 27.1 Intake and Output for Last 24 Hours 03/22/19 03/23/19 03/24/19 23:59 23:59 23:59 Intake Total 340 / 340 750 / 750 50 / 50 Output Total 1550 / 1550 2125 / 2125 675 / 675 Balance -1210 / -1210 -1375 / -1375 -625 / -625 General: Alert, Cooperative, No apparent distress HEENT: Atraumatic, PERRLA, EOMI, Normocephalic Neck: Supple, No JVD, Negative Carotid Bruits Lungs: Clear to auscultation, Normal air movement Cardiovascular: Regular rate, Regular Rhythm, Normal S1, Normal S2, No murmurs Abdomen: Bowel Sounds Present, Soft, Non Tender, Non-Distended Extremities: No clubbing, No cyanosis, No edema, Capillary Refill Less than 3 Seconds Skin: No rashes, No breakdown Musculoskeletal: No Tenderness to Palpation of Joints or Extremities Neurological: Cranial nerves II-XII grossly intact, Neuro grossly intact Psych/Mental Status: Normal Affect, Appropriate Laboratory Results 03/23/19 11:07: POC Glucose 167 H 03/23/19 17:15: POC Glucose 186 H 03/23/19 21:28: POC Glucose 286 H 03/24/19 05:40: WBC 8.0, RBC 5.28, Hgb 15.7, Hct 47.6, MCV 90.2, MCH 29.7, MCHC 33.0, RDW Std Deviation 44.0 H, RDW Coeff of Ni 13.2, Plt Count 185, MPV 10.5 03/24/19 05:40: Sodium 135 L, Potassium 4.2, Chloride 96 L, Carbon Dioxide 33.0 H, Anion Gap 6, BUN 52 H, Creatinine 1.27, Estim Creat Clear Calc 46.38, Est GFR (MDRD) Af Amer 71, Est GFR (MDRD) Non-Af 58 L, BUN/Creatinine Ratio 40.9 H, Glucose 129 H, Calcium 8.4 L, Magnesium 2.0 03/24/19 06:27: POC Glucose 138 H Current Medications Atorvastatin Calcium (Lipitor) 40 mg PO QHS [facility] Last Admin: 03/23/19 21:26 Dose: 40 mg Documented [facility] Admin: 03/23/19 17:30 Dose: 4 mg Documented by: Doxycycline Monohydrate (Doxycycline) 100 mg PO DAILY [facility] Last Admin: 03/23/19 09:13 Dose: 100 mg Documented by: Furosemide (Lasix) 40 mg IV BIDLX [facility] Last Admin: 03/23/19 17:30 Dose: 40 mg Documented by: Glucagon () 1 mg IM .X1 PRN PRN Reason: Hypoglycemia Heparin Sodium (Porcine) (Heparin Na) 5,000 unit SC Q12 [facility] Last Admin: 03/23/19 21:26 Dose: 5,000 unit Documented by: Dextrose (Dextrose 10%-Water) 250 mls @ 999 mls/hr IV .Q16M PRN; Protocol PRN Reason: HYPOGLYCEMIA Insulin Human Lispro (Humalog Kwikpen (Bkc)) 0 unit SC ACHS [facility]; Protocol Last Admin: 03/24/19 06:28 Dose: Not Given Documented by: Memantine (Namenda) 5 mg PO BID [facility] Stop: 03/30/19 22:01 Memantine (Namenda) 10 mg PO DAILY [facility] Stop: 04/06/19 10:01 Memantine (Namenda) 5 mg PO DAILY@2200 [facility] Stop: 04/06/19 22:01 Memantine (Namenda) 10 mg PO BID [facility] Metoprolol Tartrate (Lopressor (Beta Vin)) 50 mg PO BID [facility] Last Admin: 03/23/19 21:26 Dose: 50 mg Documented by: Nitroglycerin (Nitrostat) 0.4 mg SUBLINGUAL Q5M PRN PRN Reason: CARDIAC/CHEST PAIN Pantoprazole Sodium (Protonix) 20 mg PO DAILY [facility] Last Admin: 03/23/19 09:13 Dose: 20 mg Documented by: Pioglitazone HCl (Actos) 30 mg PO DAILY [facility] Last Admin: 03/23/19 09:13 Dose: 30 mg Documented by: Ramipril (Altace) 5 mg PO DAILY [facility] Last Admin: 03/23/19 09:13 Dose: 5 mg Documented by: Sodium Chloride () 10 - 40 ml IV UD PRN PRN Reason: SALINE FLUSH Last Admin: 03/23/19 17:31 Dose: 20 ml Documented by: Medical Necessity - Tobacco Use Smoking Status: Former smoker Tobacco Use: Cigarettes Assessment/Plan All Active Problems (Last Reviewed 03/14/19 @ 10:17 by Carmina Doty) Debility (Acute) Frequent falls (Acute) Encephalopathy acute (Acute) Headache (Acute) 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 Debility with falls secondary to aggressive B-cell lymphoma with KAIAWHINA KOHANGA REO involvement-Biopsy corpus colossal lesion 02/19/2019, final pathology demonstrated aggressive B-cell lymphoma. Following with Dr. Tomlinson. Undergoing radiotherapy, per daughter patient has not been responding as well as expected. Continue Decadron. Family requesting SNF placement. PT/OT. Fall precautions. CM consult for DC planning. 2. Indeterminate troponin-denies chest pain. EKG without ST-T changes. 3. Lactic acidosis-suspect reactive. No evidence of infection. UA and chest x-ray unremarkable. 4. Valvular heart disease status post aortic valve replacement 5. Dementia, unclear type-continue Aricept regimen. 6. CAD status post CABG x4 and PCI-continue statin, metoprolol, KAYCE inhibitor. 7. PAOD status post iliac artery stent-continue statin, metoprolol, KAYCE inhibitor. 8. 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 Hypertension/hyperlipidemia-continue metoprolol, ramipril, statin. 10. History of CVA-continue statin. 12. GERD-continue PPI. 13. Chronic kidney disease stage III-stable. 14. Type 2 diabetes mellitus-continue home oral regimen with sliding scale insulin. DVT prophylaxis-Heparin sc This patient was seen by GELY Velarde under the supervision of Dr. Olson. <Uvaldo Olson - Last Filed: 03/24/19 09:59> - Physical Exam Vitals/I&O's: Vital Signs Temp Pulse Resp BP Pulse Ox 97.4 F L 70 20 H 111/78 96 03/24/19 03:00 03/24/19 07:13 03/24/19 03:00 03/24/19 03:00 03/24/19 03:00 Oxygen Delivery Method Room Air Weight: 82.1 kg Body Mass Index (BMI) 27.1 Intake and Output for Last 24 Hours 03/22/19 03/23/19 03/24/19 23:59 23:59 23:59 Intake Total 340 / 340 750 / 750 50 / 50 Output Total 1550 / 1550 2125 / 2125 675 / 675 Balance -1210 / -1210 -1375 / -1375 -625 / -625 Laboratory Results 03/23/19 11:07: POC Glucose 167 H 03/23/19 17:15: POC Glucose 186 H 03/23/19 21:28: POC Glucose 286 H 03/24/19 05:40: WBC 8.0, RBC 5.28, Hgb 15.7, Hct 47.6, MCV 90.2, MCH 29.7, MCHC 33.0, RDW Std Deviation 44.0 H, RDW Coeff of Ni 13.2, Plt Count 185, MPV 10.5 03/24/19 05:40: Sodium 135 L, Potassium 4.2, Chloride 96 L, Carbon Dioxide 33.0 H, Anion Gap 6, BUN 52 H, Creatinine 1.27, Estim Creat Clear Calc 46.38, Est GFR (MDRD) Af Amer 71, Est GFR (MDRD) Non-Af 58 L, BUN/Creatinine Ratio 40.9 H, Glucose 129 H, Calcium 8.4 L, Magnesium 2.0 03/24/19 06:27: POC Glucose 138 H Current Medications Atorvastatin Calcium (Lipitor) 40 mg PO QHS [facility] Last Admin: 03/23/19 21:26 Dose: 40 mg Documented by: [facility] Last Admin: 03/23/19 17:30 Dose: 4 mg Documented by: Doxycycline Monohydrate (Doxycycline) 100 mg PO DAILY [facility] Last Admin: 03/23/19 09:13 Dose: 100 mg Documented by: Furosemide (Lasix) 40 mg IV BIDLX [facility] Last Admin: 03/23/19 17:30 Dose: 40 mg Documented by: Glucagon () 1 mg IM .X1 PRN PRN Reason: Hypoglycemia Heparin Sodium (Porcine) (Heparin Na) 5,000 unit SC Q12 [facility] Last Admin: 03/23/19 21:26 Dose: 5,000 unit Documented by: Dextrose (Dextrose 10%-Water) 250 mls @ 999 mls/hr IV .Q16M PRN; Protocol PRN Reason: HYPOGLYCEMIA Insulin Human Lispro (Humalog Kwikpen (Bkc)) 0 unit SC ACHS [facility]; Protocol Last Admin: 03/24/19 06:28 Dose: Not Given Documented by: Memantine (Namenda) 5 mg PO BID [facility] Stop: 03/30/19 22:01 Memantine (Namenda) 10 mg PO DAILY [facility] Stop: 04/06/19 10:01 Memantine (Namenda) 5 mg PO DAILY@2200 [facility] Stop: 04/06/19 22:01 Memantine (Namenda) 10 mg PO BID [facility] Metoprolol Tartrate (Lopressor (Beta Vin)) 50 mg PO BID [facility] Last Admin: 03/23/19 21:26 Dose: 50 mg Documented by: Nitroglycerin (Nitrostat) 0.4 mg SUBLINGUAL Q5M PRN PRN Reason: CARDIAC/CHEST PAIN Pantoprazole Sodium (Protonix) 20 mg PO DAILY [facility] Last Admin: 03/23/19 09:13 Dose: 20 mg Documented by: Pioglitazone HCl (Actos) 30 mg PO DAILY [facility] Last Admin: 03/23/19 09:13 Dose: 30 mg Documented by: Ramipril (Altace) 5 mg PO DAILY [facility] Last Admin: 03/23/19 09:13 Dose: 5 mg Documented by: Sodium Chloride () 10 - 40 ml IV UD PRN PRN Reason: SALINE FLUSH Last Admin: 03/23/19 17:31 Dose: 20 ml Documented by: Assessment/Plan This patient was seen in conjunction with GELY Velarde . I have independently interviewed and examined the patient and reviewed pertinent historical, laboratory, and other data. Please refer to GELY Velarde note for details of this patient's presentation, findings, and recommendations. I have reviewed GELY Velarde note and concur with documented findings. In brief, patient is a 88-year-old gentleman with multiple comorbidities admitted with progressive generalized weakness and falls. An assessment of physical debility made admitted to regular nursing floor for further management 03/24/2019; patient seen appears comfortable no significant change in condition. Physical Examination: GENERAL: cooperative HEENT: Atraumatic; EYES; Anicteric, NECK; supple, normal thyroid, RESPIRATORY: Diminished to auscultation CARDIOVASCULAR: Regular S1 S2, GI: soft, normoactive bowel sounds, : No Renal angle tenderness; EXTREMITIES: No edema, no clubbing, MUSCULOSKELETAL: no muscle waisting NEURO: Awake; no lateralizing signs. SKIN: No Rash PSYCH; Flat affect Assessment: 1. 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 Lactic acidosis of undetermined etiology 4. Elevated troponin secondary to demand ischemia 5. Dementia 6. Coronary artery disease with previous CABG and subsequent stent placement 7. Peripheral arterial disease with previous iliac stent placement 8. Conduction system disorder status post pacemaker placement 9. Essential hypertension 10. Dyslipidemia 11. GERD 12. History of CVA 13. Diabetes mellitus type 2 14. DVT prophylaxis-Heparin sc Recommendations: 1. I have discussed the results of my overview and impressions with the patient 2. Options for management were reviewed Advance planning; did discuss with thefamily regarding advanced directives as well as CODE STATUS. Did explain the various scenarios involved ( FULL CODE, DNR CCA, DNR CCA with no intubation, and DNR CC and what each meant)family for patient elected toremain DNR CCA no intubation. Order was placed. Time spent on discussion 16 minutes. Code Visit Inpatient E&M: 41742 Subs Hosp L2 Procedures: 11587 Advncd Care Plan 30 Min
[2019-03-24] MEDS: Doxycycline 100 MG CAPSULE PO (10:16)
[2019-03-24] MEDS: dexAMETHasone 4 MG Tablet PO ×2 (10:16→17:35)
[2019-03-24] MEDS: Heparin Injection (Vial) 5,000 UNIT/ML VIAL 5000 UNIT SC ×2 (10:16→20:59)
[2019-03-24] MEDS: Metoprolol Tartrate 50 MG Tablet PO ×2 (10:16→20:59)
[2019-03-24] MEDS: Ramipril 5 MG Capsule PO (10:16)
[2019-03-24] MEDS: Pioglitazone Hydrochloride 30 MG Tablet PO (10:16)
[2019-03-24] MEDS: Furosemide 40 MG/4 ML Vial IV ×2 (10:16→17:36)
[2019-03-24] MEDS: Memantine Hydrochloride 5 MG Tablet PO ×2 (10:17→21:00)
[2019-03-24] MEDS: Pantoprazole Sodium 20 MG Tablet PO (10:17)
[2019-03-24] MEDS: 0.9% Saline Lock 10 ML Syringe IV ×3 (10:20→21:00)
[2019-03-24] MEDS: Insulin Lispro 100 UNIT/ML INSULN.PEN SC ×3 (12:05→21:06)
[2019-03-24 12:10] LABS: Bedside Glucose 179 mg/dL (70-110)
[2019-03-24 16:36] LABS: Bedside Glucose 227 mg/dL (70-110)
[2019-03-24] MEDS: Atorvastatin Calcium 40 MG Tablet PO (21:00)
[2019-03-24] MEDS: Nystatin Powder 15gm Bottle 1 APPLIC TOPICAL (21:09)
[2019-03-24] MEDS: BACITRACIN 15 GM Tube 1 APPLIC TOPICAL (21:09)
[2019-03-24 21:21] LABS: Bedside Glucose 355 mg/dL (70-110)
[2019-03-25] VITALS (13 sets, daily range): BP systolic 90–146; BP diastolic 53–77; PULSE 62–76; RESP 15–20; TEMP 36.4–36.6; O2SAT 95–97
[2019-03-25] MEDS: Nystatin Powder 15gm Bottle 1 APPLIC TOPICAL ×3 (05:17→21:10)
[2019-03-25 06:16] LABS: Hematocrit 48.3 % (40-54); Hemoglobin 16.3 g/dL (13.0-16.5); Mean Corp Hgb Conc 33.7 g/dL (32-36); Mean Corpuscular Hgb 30.9 pg (27.0-32.0); Mean Corpuscular Volume 91.7 fL (80-94); Mean Platelet Vol. 10.6 fl (6.2-12.0); Platelet Count 163 K/mm3 (150-450); RBC Distribution Width CV 13.4 % (11.6-14.6); RBC Distribution Width SD 45.5 fl (35.1-43.9); Red Blood Count 5.27 M/mm3 (4.6-6.2); White Blood Count 9.3 K/mm3 (4.4-11.0)
[2019-03-25 06:58] LABS: Anion Gap 7 (5-15); BUN 72 mg/dL (7-18); BUN/Creat Ratio 40.2 RATIO (10-20); Calcium,Total 8.4 mg/dL (8.5-10.1); Chloride 98 mmol/L (98-107); Creatinine, Serum 1.79 mg/dL (0.70-1.30); EST Glomerular Filtration Rate 39 mL/min (>60); Est Glom Filt Rate - Afr Amer 47 mL/min (>60); Estimated Creatinine Clearance 32.91 ml/min; Glucose 193 mg/dL (74-106); Potassium 4.3 mmol/L (3.5-5.1); Sodium Level 137 mmol/L (136-145)
[2019-03-25] MEDS: Insulin Lispro 100 UNIT/ML INSULN.PEN SC ×4 (07:05→21:09)
[2019-03-25 07:15] LABS: Bedside Glucose 181 mg/dL (70-110)
[2019-03-25] MEDS: Memantine Hydrochloride 5 MG Tablet PO ×2 (08:25→21:10)
[2019-03-25] MEDS: dexAMETHasone 4 MG Tablet PO ×2 (08:25→16:38)
[2019-03-25] MEDS: Pantoprazole Sodium 20 MG Tablet PO (08:25)
[2019-03-25] MEDS: Metoprolol Tartrate 50 MG Tablet PO ×2 (08:26→21:09)
[2019-03-25] MEDS: Ramipril 5 MG Capsule PO (08:26)
[2019-03-25] MEDS: Pioglitazone Hydrochloride 30 MG Tablet PO (08:26)
[2019-03-25] MEDS: Doxycycline 100 MG CAPSULE PO (08:26)
[2019-03-25] MEDS: BACITRACIN 15 GM Tube 1 APPLIC TOPICAL ×2 (08:29→21:08)
[2019-03-25] MEDS: Furosemide 40 MG/4 ML Vial IV (08:34)
[2019-03-25] MEDS: Heparin Injection (Vial) 5,000 UNIT/ML VIAL 5000 UNIT SC ×2 (08:34→21:09)
--- NOTE | 2019-03-25 11:12 | CASEMGMT ---
JOSS called [facility] with referral and spoke with Karo regarding referral. She was aware of patient as his daughter works at [employer]. JOSS faxed referral information. JOSS also let her know about radiation at [facility] M-F at 9:40a. Await her response. Plan: [facility] pending their acceptance. Rina NOBLES MSW
[2019-03-25 11:30] LABS: Bedside Glucose 311 mg/dL (70-110)
--- NOTE | 2019-03-25 12:45 | PCM.PROGNOTE ---
<Raissa Schwarz - Last Filed: 03/25/19 12:53> Patient Problems: Active and Suspected Problems (Last Reviewed 03/14/19 @ 10:17 by Carmina Doty) Debility (Acute) Frequent falls (Acute) Subjective: Patient seen and examined. No acute events overnight. Patient denies current complaints. To undergo radiation this morning. - Physical Exam Vitals/I&O's: Vital Signs Temp Pulse Resp BP Pulse Ox 97.8 F 70 15 146/77 H 96 03/25/19 08:16 03/25/19 11:32 03/25/19 08:16 03/25/19 08:26 03/25/19 08:16 Oxygen Delivery Method Room Air Weight: 177 lb 14.609 oz Body Mass Index (BMI) 27.1 Intake and Output for Last 24 Hours 03/23/19 03/24/19 03/25/19 23:59 23:59 23:59 Intake Total 750 / 750 600 / 600 530 / 530 Output Total 2125 / 2125 1325 / 1325 725 / 725 Balance -1375 / -1375 -725 / -725 -195 / -195 General: Alert, Oriented x3, Cooperative HEENT: Atraumatic, PERRLA, EOMI, Normocephalic Neck: Supple, No JVD, Negative Carotid Bruits Lungs: Clear to auscultation, Normal air movement Cardiovascular: Regular rate, No murmurs Abdomen: Bowel Sounds Present, Soft, Non Tender, Non-Distended Extremities: No clubbing, No cyanosis, No edema, Capillary Refill Less than 3 Seconds Skin: No rashes, No breakdown Musculoskeletal: No Tenderness to Palpation of Joints or Extremities Neurological: Cranial nerves II-XII grossly intact, Neuro grossly intact Psych/Mental Status: Normal Affect, Appropriate Laboratory Results 03/24/19 16:11: POC Glucose 227 H 03/24/19 21:05: POC Glucose 355 H 03/25/19 05:50: WBC 9.3, RBC 5.27, Hgb 16.3, Hct 48.3, MCV 91.7, MCH 30.9, MCHC 33.7, RDW Std Deviation 45.5 H, RDW Coeff of Ni 13.4, Plt Count 163, MPV 10.6 03/25/19 05:50: Sodium 137, Potassium 4.3, Chloride 98, Carbon Dioxide 32.0, Anion Gap 7, BUN 72 H, Creatinine 1.79 H, Estim Creat Clear Calc 32.91, Est GFR (MDRD) Af Amer 47 L, Est GFR (MDRD) Non-Af 39 L, BUN/Creatinine Ratio 40.2 H, Glucose 193 H, Calcium 8.4 L 03/25/19 07:02: POC Glucose 181 H 03/25/19 11:08: POC Glucose 311 H Current Medications Atorvastatin Calcium (Lipitor) 40 mg PO QHS [facility] Last Admin: 03/24/19 21:00 Dose: 40 mg Documented by: Bacitracin (Bacitracin Ointment) 1 applic TOPICAL BID [facility]; Protocol Last Admin: 03/25/19 08:29 Dose: 1 applicatio Documented by: Dexamethasone (Decadron) 4 mg PO BIDCM [facility] Last Admin: 03/25/19 08:25 Dose: 4 mg Documented by: Doxycycline Monohydrate (Doxycycline) 100 mg PO DAILY [facility] Last Admin: 03/25/19 08:26 Dose: 100 mg Documented by: Furosemide (Lasix) 40 mg IV BIDLX [facility] Last Admin: 03/25/19 08:34 Dose: 40 mg Documented by: Glucagon () 1 mg IM .X1 PRN PRN Reason: Hypoglycemia Heparin Sodium (Porcine) (Heparin Na) 5,000 unit SC Q12 [facility] Last Admin: 03/25/19 08:34 Dose: 5,000 unit Documented by: Dextrose (Dextrose 10%-Water) 250 mls @ 999 mls/hr IV .Q16M PRN; Protocol PRN Reason: HYPOGLYCEMIA Insulin Human Lispro (Humalog Kwikpen (Bkc)) 0 unit SC ACHS [facility]; Protocol Last Admin: 03/25/19 11:10 Dose: 6 u Documented by: Memantine (Namenda) 5 mg PO BID [facility] Stop: 03/30/19 22:01 Last Admin: 03/25/19 08:25 Dose: 5 mg Documented by: Memantine (Namenda) 10 mg PO DAILY [facility] Stop: 04/06/19 10:01 Memantine (Namenda) 5 mg PO DAILY@2200 [facility] Stop: 04/06/19 22:01 Memantine (Namenda) 10 mg PO BID [facility] Metoprolol Tartrate (Lopressor (Beta Vin)) 50 mg PO BID [facility] Last Admin: 03/25/19 08:26 Dose: 50 mg Documented by: Nitroglycerin (Nitrostat) 0.4 mg SUBLINGUAL Q5M PRN PRN Reason: CARDIAC/CHEST PAIN Nystatin (Mycostatin Powder) 1 applic TOPICAL BID [facility]; Protocol Last Admin: 03/25/19 08:29 Dose: 1 applicatio Documented by: Pantoprazole Sodium (Protonix) 20 mg PO DAILY [facility] Last Admin: 03/25/19 08:25 Dose: 20 mg Documented by: Pioglitazone HCl (Actos) 30 mg PO DAILY [facility] Last Admin: 03/25/19 08:26 Dose: 30 mg Documented by: Ramipril (Altace) 5 mg PO DAILY [facility] Last Admin: 03/25/19 08:26 Dose: 5 mg Documented by: Sodium Chloride () 10 - 40 ml IV UD PRN PRN Reason: SALINE FLUSH Last Admin: 03/24/19 21:00 Dose: 10 ml Documented by: Medical Necessity - Tobacco Use Smoking Status: Former smoker Tobacco Use: Cigarettes Assessment/Plan All Active Problems (Last Reviewed 03/14/19 @ 10:17 by Carmina Doty) Debility (Acute) Frequent falls (Acute) Encephalopathy acute (Acute) Headache (Acute) 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 Debility with falls secondary to aggressive B-cell lymphoma with GUIDANCE DIRECTOR involvement-Biopsy corpus colossal lesion 02/19/2019, final pathology demonstrated aggressive B-cell lymphoma. Following with Dr. Tomlinson. Undergoing radiotherapy, per daughter patient has not been responding as well as expected. Continue Decadron. Family requesting SNF placement. PT/OT. Fall precautions. SNF pending pre-cert. 2. Indeterminate troponin-denies chest pain. EKG without ST-T changes. Echocardiogram demonstrated an EF of 60%, stage I diastolic dysfunction, mild mitral valve insufficiency, mild tricuspid valve insufficiency. 3. Lactic acidosis-suspect reactive. No evidence of infection. UA and chest x-ray unremarkable. 4. QUAN on Chronic kidney disease stage III-QUAN secondary to diuretic regimen. Lasix discontinued. Trend BMP. 5. Dementia, unclear type-continue Aricept regimen. 6. CAD status post CABG x4 and PCI-continue statin, metoprolol, KAYCE inhibitor. 7. PAOD status post iliac artery stent-continue statin, metoprolol, KAYCE inhibitor. 8. 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 Hypertension/hyperlipidemia-continue metoprolol, ramipril, statin. 10. History of CVA-continue statin. 12. GERD-continue PPI. 13. Valvular heart disease status post aortic valve replacement 14. Type 2 diabetes mellitus-continue home oral regimen with sliding scale insulin. DVT prophylaxis-Heparin sc Discharge planning: SNF pending acceptance. This patient was seen by GELY Velarde under the supervision of Dr. Teresa. <Chema Teresa - Last Filed: 03/25/19 15:59> - Physical Exam Vitals/I&O's: Vital Signs Temp Pulse Resp BP Pulse Ox 36.6 C 64 15 93/53 L 97 03/25/19 14:28 03/25/19 14:28 03/25/19 14:28 03/25/19 14:28 03/25/19 14:28 Oxygen Delivery Method Room Air Weight: 80.7 kg Body Mass Index (BMI) 27.1 Intake and Output for Last 24 Hours 03/23/19 03/24/19 03/25/19 23:59 23:59 23:59 Intake Total 750 / 750 600 / 600 530 / 530 Output Total 2125 / 2125 1325 / 1325 725 / 725 Balance -1375 / -1375 -725 / -725 -195 / -195 General: Alert, Cooperative HEENT: Atraumatic, Normocephalic Lungs: Clear to auscultation, Normal air movement, No rhonchi, No wheeze Cardiovascular: Regular rate, Regular Rhythm, Normal S1, Normal S2, No murmurs Abdomen: Bowel Sounds Present, Soft, Non Tender, Non-Distended Extremities: No edema, No Calf Tenderness Skin: No rashes, No breakdown Musculoskeletal: No Tenderness to Palpation of Joints or Extremities, No Muscle Wasting Neurological: Cranial nerves II-XII grossly intact, Neuro grossly intact Psych/Mental Status: Normal Affect, Appropriate Laboratory Results 03/24/19 16:11: POC Glucose 227 H 03/24/19 21:05: POC Glucose 355 H 03/25/19 05:50: WBC 9.3, RBC 5.27, Hgb 16.3, Hct 48.3, MCV 91.7, MCH 30.9, MCHC 33.7, RDW Std Deviation 45.5 H, RDW Coeff of Ni 13.4, Plt Count 163, MPV 10.6 03/25/19 05:50: Sodium 137, Potassium 4.3, Chloride 98, Carbon Dioxide 32.0, Anion Gap 7, BUN 72 H, Creatinine 1.79 H, Estim Creat Clear Calc 32.91, Est GFR (MDRD) Af Amer 47 L, Est GFR (MDRD) Non-Af 39 L, BUN/Creatinine Ratio 40.2 H, Glucose 193 H, Calcium 8.4 L 03/25/19 07:02: POC Glucose 181 H 03/25/19 11:08: POC Glucose 311 H Current Medications Atorvastatin Calcium (Lipitor) 40 mg PO QHS [facility] Last Admin: 03/24/19 21:00 Dose: 40 mg Documented by: Bacitracin (Bacitracin Ointment) 1 applic TOPICAL BID [facility]; Protocol Last Admin: 03/25/19 08:29 Dose: 1 applicatio Documented by: Dexamethasone (Decadron) 4 mg PO BIDCM [facility] Last Admin: 03/25/19 08:25 Dose: 4 mg Documented by: Doxycycline Monohydrate (Doxycycline) 100 mg PO DAILY [facility] Last Admin: 03/25/19 08:26 Dose: 100 mg Documented by: Glucagon () 1 mg IM .X1 PRN PRN Reason: Hypoglycemia Heparin Sodium (Porcine) (Heparin Na) 5,000 unit SC Q12 [facility] Last Admin: 03/25/19 08:34 Dose: 5,000 unit Documented by: Dextrose (Dextrose 10%-Water) 250 mls @ 999 mls/hr IV .Q16M PRN; Protocol PRN Reason: HYPOGLYCEMIA Sodium Chloride () 1,000 mls @ 125 mls/hr IV .Q8H [facility] Stop: 03/25/19 16:54 Last Admin: 03/25/19 13:18 Dose: 125 mls/hr Documented by: Insulin Human Lispro (Humalog Kwikpen (Bkc)) 0 unit SC ACHS [facility]; Protocol Last Admin: 03/25/19 11:10 Dose: 6 u Documented by: Memantine (Namenda) 5 mg PO BID [facility] Stop: 03/30/19 22:01 Last Admin: 03/25/19 08:25 Dose: 5 mg Documented by: Memantine (Namenda) 10 mg PO DAILY [facility] Stop: 04/06/19 10:01 Memantine (Namenda) 5 mg PO DAILY@2200 [facility] Stop: 04/06/19 22:01 Memantine (Namenda) 10 mg PO BID [facility] Metoprolol Tartrate (Lopressor (Beta Vin)) 50 mg PO BID [facility] Last Admin: 03/25/19 08:26 Dose: 50 mg Documented by: Nitroglycerin (Nitrostat) 0.4 mg SUBLINGUAL Q5M PRN PRN Reason: CARDIAC/CHEST PAIN Nystatin (Mycostatin Powder) 1 applic TOPICAL BID [facility]; Protocol Last Admin: 03/25/19 08:29 Dose: 1 applicatio Documented by: Pantoprazole Sodium (Protonix) 20 mg PO DAILY [facility] Last Admin: 03/25/19 08:25 Dose: 20 mg Documented by: Pioglitazone HCl (Actos) 30 mg PO DAILY [facility] Last Admin: 03/25/19 08:26 Dose: 30 mg Documented by: Ramipril (Altace) 5 mg PO DAILY [facility] Last Admin: 03/25/19 08:26 Dose: 5 mg Documented by: Sodium Chloride () 10 - 40 ml IV UD PRN PRN Reason: SALINE FLUSH Last Admin: 03/24/19 21:00 Dose: 10 ml Documented by: Assessment/Plan Patient seen and examined independently. Data reviewed. I agree with the above note by the nurse practitioner. 1. Debility: Awaiting on insurance authorization for [facility] facility. 2. elevated troponins: EF 60%. Unclear why this was even checked in the first place. No additional work up at this time. 3. B Cell lymphoma: complicates overall care. Undergoing XRT. Need to discuss goals of care with oncology. Code Visit Inpatient E&M: 27076 [facility] Hosp L2
--- NOTE | 2019-03-25 12:57 | CASEMGMT ---
Received call from Karo at [facility] and they can accept patient. JOSS told her he is getting radiation. Plan: [facility] under skilled level of care. Rina NOBLES MSW
[2019-03-25] MEDS: 0.9% Normal Saline 1,000 ML 125 ML IV (13:18)
--- NOTE | 2019-03-25 15:36 | CASEMGMT ---
Patient has a Healthcare Power of Claim Benefit Specialist on file at [facility]. He has a Healthcare Living Will in E-chart, a copy was printed and placed in his paper chart. Rina RANGEL
[2019-03-25 16:51] LABS: Bedside Glucose 181 mg/dL (70-110)
[2019-03-25] MEDS: Atorvastatin Calcium 40 MG Tablet PO (21:09)
[2019-03-25 21:30] LABS: Bedside Glucose 238 mg/dL (70-110)
[2019-03-26 02:36] VITALS: BP 125/60; PULSE 69; RESP 18; TEMP 36.4; O2SAT 97
[2019-03-26 03:00] VITALS: PULSE 72
[2019-03-26 06:06] LABS: Hemoglobin 14.9 g/dL (13.0-16.5); Mean Corp Hgb Conc 32.4 g/dL (32-36); Mean Corpuscular Volume 92.7 fL (80-94); Mean Platelet Vol. 10.8 fl (6.2-12.0); Platelet Count 160 K/mm3 (150-450); RBC Distribution Width CV 13.7 % (11.6-14.6); RBC Distribution Width SD 46.5 fl (35.1-43.9); Red Blood Count 4.96 M/mm3 (4.6-6.2); White Blood Count 9.2 K/mm3 (4.4-11.0)
[2019-03-26 06:30] LABS: Anion Gap 4 (5-15); BUN 74 mg/dL (7-18); BUN/Creat Ratio 46.8 RATIO (10-20); Calcium,Total 8.4 mg/dL (8.5-10.1); Chloride 105 mmol/L (98-107); Creatinine, Serum 1.58 mg/dL (0.70-1.30); EST Glomerular Filtration Rate 45 mL/min (>60); Est Glom Filt Rate - Afr Amer 55 mL/min (>60); Estimated Creatinine Clearance 38.53 ml/min; Glucose 219 mg/dL (74-106); Potassium 4.5 mmol/L (3.5-5.1); Sodium Level 141 mmol/L (136-145)
[2019-03-26] MEDS: Insulin Lispro 100 UNIT/ML INSULN.PEN SC ×2 (06:34→11:33)
[2019-03-26 07:05] LABS: Bedside Glucose 165 mg/dL (70-110)
[2019-03-26] MEDS: dexAMETHasone 4 MG Tablet PO (08:15)
--- NOTE | 2019-03-26 08:17 | NURSING ---
per Colleen at radiation therapy today at 0940.
[2019-03-26 08:51] VITALS: PULSE 76
[2019-03-26 09:23] VITALS: BP 116/53; PULSE 73; RESP 18; TEMP 35.8; O2SAT 99
[2019-03-26] MEDS: Pantoprazole Sodium 20 MG Tablet PO (09:24)
[2019-03-26 09:25] VITALS: PULSE 73
[2019-03-26] MEDS: Ramipril 5 MG Capsule PO (09:25)
[2019-03-26] MEDS: Doxycycline 100 MG CAPSULE PO (09:25)
[2019-03-26] MEDS: Pioglitazone Hydrochloride 30 MG Tablet PO (09:25)
[2019-03-26] MEDS: Metoprolol Tartrate 50 MG Tablet PO (09:25)
[2019-03-26] MEDS: Memantine Hydrochloride 5 MG Tablet PO (09:25)
--- NOTE | 2019-03-26 10:43 | PCM.EXTCARCO ---
- Diet 03/22/19 15:55 Diet: Cardiac: Calorie-Controlled Food consistency:: Regular Liquid Consistency:: Regular/Thin Is pt able to select menu?: No How many daily calories?: 1800 calorie - Routine Orders/Code Status Enema Type: Fleetz Enema Frequency: Daily PRN Suppository Type: Dulcolax 10mg Suppository Frequency: Daily PRN Routine Lab Work: - - CBC, BMP Q Week [facility] - Wound(s) Right Elbow Wound Type: Skin Tear Bilateral 2nd Toe Wound Type: Skin Tear - Suggestions for Active Care Change Position every (hours): 2 Times a day to sit in chair: 3 - Therapies Physical Therapy: Eval and Treat Occupational Therapy: Eval and Treat - Problem/Diagnosis (1) Debility Status: Acute Current Visit: Yes (2) Frequent falls Status: Acute Current Visit: Yes (3) Diabetes mellitus, type II Status: Chronic Current Visit: No (4) 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 Current Visit: No (5) 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 Current Visit: No (6) Presence of stent in coronary artery Status: Chronic Comment: PTCA/stent of the mid RCA 04/10/02 Current Visit: No (7) Atherosclerosis of coronary artery bypass graft without angina pectoris Status: Chronic Comment: CABG x4- UMANZOR to LAD, SVG to the high lateral and lateral CX, SVG to PDA of the RCA 03/31/06 Current Visit: No (8) Hyperlipidemia Status: Chronic Current Visit: No (9) Hypertension Status: Chronic Current Visit: No (10) Paroxysmal atrial tachycardia Status: Chronic Current Visit: No (11) H/O aortic valve replacement Status: Chronic Comment: St. Live Bicor tissue valve 21mm 03/31/06 Current Visit: No (12) Nonrheumatic aortic valve disorder Status: Chronic Current Visit: No (13) Intermittent claudication Status: Chronic Current Visit: No (14) Carotid bruit Status: Chronic Current Visit: No (15) Left atrial mass Status: Chronic Current Visit: No (16) AV block, 3rd degree Status: Chronic Current Visit: No (17) Presence of cardiac pacemaker Status: Chronic Current Visit: No (18) S/P insertion of iliac artery stent Status: Chronic Current Visit: No (19) PAD (peripheral artery disease) Status: Chronic Current Visit: No - Allergies/Procedures Done in Hospital Allergies/Adverse Reactions: Allergies No Known Allergies Allergy (Verified 03/22/19 10:12) Procedures: 2-D Echocardiogram - Type of Care/Length of Stay Estimated LOS: More Than 30 Days Type of Care Needed: Skilled Rehab Potential: Fair Prognosis: Fair - Additional Orders/Day of Discharge H&P will serve as current which was dated: 03/22/19 Day of Discharge: 03/26/19 - Dietary and Speech Recommendations Dietitian Recommendations/Changes: Suggest liberalize diet to carbohydrate-controlled/no added salt especially if wt continues to decline & PO/redd do not improve at meals. - Follow Up Care Primary Care Physician: Hunter Becker Chi, MD [Primary Care Provider] - Please follow up with your Primary Care Physician in: 1 Week Please Follow Up With: Baljinder Tomlinson MD When: As scheduled Please Follow Up With: Henrik Caldwell MD When: As scheduled
--- NOTE | 2019-03-26 11:23 | CASEMGMT ---
Patient is ready for discharge today. JOSS spoke with patient's daughter and asked if she needed SW to set up transport. She asked SW to check with [facility] in admissions and if their product evangelist could not pickling operator patient she will pick him up herself. She did not want transport arranged with a transport company as it is not covered by insurance. JOSS called [facility] at [place] and she said she will check with their star route mail driver. Awaiting co-shama Transfer to Extended Care form. Rina NOBLES MSW
--- NOTE | 2019-03-26 11:25 | PCM.DC.SUM ---
<Raissa Schwarz - Last Filed: 03/26/19 11:29> Discharge Date and Diagnosis Date of Admission: 03/22/19 Date of Discharge: 03/26/19 - Primary Discharge Diagnosis Active and Suspected Problems (Last Reviewed 03/14/19 @ 10:17 by Carmina Doty) 1. 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 Indeterminate troponin-ACS ruled out. 3. Lactic acidosis-suspect reactive. No evidence of infection. 4. QUAN on Chronic kidney disease stage III 5. Dementia, unclear type 6. CAD status post CABG x4 and PCI 7. PAOD status post iliac artery stent 8. 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 Hypertension/hyperlipidemia 10. History of CVA 12. GERD 13. Valvular heart disease status post aortic valve replacement 14. Type 2 diabetes mellitus - Secondary Discharge Diagnosis Chronic Problems (Last Reviewed 03/14/19 @ 10:17 by Carmina Doty) Diabetes mellitus, type II (Chronic) HATCHERY MANAGER lymphoma (Chronic) Presence of stent in coronary artery (Chronic) PTCA/stent of the mid RCA 04/10/02 Atherosclerosis of coronary artery bypass graft without angina pectoris (Chronic) CABG x4- UMANZOR to LAD, SVG to the high lateral and lateral CX, SVG to PDA of the RCA 03/31/06 Hyperlipidemia (Chronic) Hypertension (Chronic) Paroxysmal atrial tachycardia (Chronic) H/O aortic valve replacement (Chronic ~03/31/06) St. 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 Prominent edema in the white matter of the posterior left parietal and occipital lobes with focal area of increased attenuation. This may represent an area of lymphoma. A repeat examination following IV contrast or MRI examination is recommended. Electronically Signed: Zain Collier, at 12:02 EST , Service support , Chest X-Ray 03/22/19 10:43 IMPRESSION: Status post CABG. Stable elevation of the left hemidiaphragm with persistent increased markings in the left lung most likely postoperative in nature. Electronically Signed: Zain Collier, at 11:32 EST , Service support , Operations: None Procedures: None Summary of Care Provided: The patient is a 78 year old M admitted 03/22/2019 due to altered mental status and mechanical falls. 1. 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 Following with Dr. Tomlinson. Undergoing radiotherapy, per daughter patient has not been responding as well as expected. Continue Decadron. SNF at discharge. Follow-up with primary care provider in 1 week and oncology as scheduled. 2. Indeterminate troponin-denies chest pain. EKG without ST-T changes. Echocardiogram demonstrated an EF of 60%, stage I diastolic dysfunction, mild mitral valve insufficiency, mild tricuspid valve insufficiency. 3. Lactic acidosis-suspect reactive. No evidence of infection. UA and chest x-ray unremarkable. 4. QUAN on Chronic kidney disease stage III-QUAN secondary to diuretic regimen. Repeat BMP improved. 5. Dementia, unclear type-continue Aricept regimen. 6. CAD status post CABG x4 and PCI-continue statin, metoprolol, KAYCE inhibitor. 7. PAOD status post iliac artery stent-continue statin, metoprolol, KAYCE inhibitor. 8. 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 Hypertension/hyperlipidemia-continue metoprolol, ramipril, statin. 10. History of CVA-continue statin. 12. GERD-continue PPI. 13. Valvular heart disease status post aortic valve replacement 14. Type 2 diabetes mellitus-continue home oral regimen with sliding scale insulin. General: Alert, Oriented x3, Cooperative HEENT: Atraumatic, PERRLA, EOMI, Normocephalic Neck: Supple, No JVD, Negative Carotid Bruits Lungs: Clear to auscultation, Normal air movement Cardiovascular: Regular rate, No murmurs Abdomen: Bowel Sounds Present, Soft, Non Tender, Non-Distended Extremities: No clubbing, No cyanosis, No edema, Capillary Refill Less than 3 Seconds Skin: No rashes, No breakdown Musculoskeletal: No Tenderness to Palpation of Joints or Extremities Neurological: Cranial nerves II-XII grossly intact, Neuro grossly intact Psych/Mental Status: Normal Affect, Appropriate Patient seen and examined prior to discharge. Physical assessment as noted above. Patient is stable for discharge with follow up recommendations as noted above. This patient was seen by GELY Velarde under the supervision of Dr. Teresa. - Physical Exam Vitals/I&O's: Vital Signs Temp Pulse Resp BP Pulse Ox 96.5 F L 73 18 116/53 L 99 03/26/19 09:23 03/26/19 09:25 03/26/19 09:23 03/26/19 09:23 03/26/19 09:23 Oxygen Delivery Method Room Air Weight: 181 lb 10.574 oz Body Mass Index (BMI) 27.1 Intake and Output for Last 24 Hours 03/24/19 03/25/19 03/26/19 23:59 23:59 23:59 Intake Total 600 / 600 2250 / 2250 0 / 0 Output Total 1325 / 1325 1550 / 1550 Balance -725 / -725 700 / 700 0 / 0 Laboratory Results 03/25/19 11:08: POC Glucose 311 H 03/25/19 16:36: POC Glucose 181 H 03/25/19 21:06: POC Glucose 238 H 03/26/19 05:16: WBC 9.2, RBC 4.96, Hgb 14.9, Hct 46.0, MCV 92.7, MCH 30.0, MCHC 32.4, RDW Std Deviation 46.5 H, RDW Coeff of Ni 13.7, Plt Count 160, MPV 10.8 03/26/19 05:16: Sodium 141, Potassium 4.5, Chloride 105, Carbon Dioxide 32.0, Anion Gap 4 L, BUN 74 H, Creatinine 1.58 H, Estim Creat Clear Calc 38.53, Est GFR (MDRD) Af Amer 55 L, Est GFR (MDRD) Non-Af 45 L, BUN/Creatinine Ratio 46.8 H, Glucose 219 H, Calcium 8.4 L 03/26/19 06:32: POC Glucose 165 H Current Medications Atorvastatin Calcium (Lipitor) 40 mg PO QHS [facility] Last Admin: 03/25/19 21:09 Dose: 40 mg Documented by: Bacitracin (Bacitracin Ointment) 1 applic TOPICAL BID [facility]; Protocol Last Admin: 03/25/19 21:08 Dose: 1 applicatio Documented by: [facility] Last Admin: 03/26/19 08:15 Dose: 4 mg Documented by: Doxycycline Monohydrate (Doxycycline) 100 mg PO DAILY [facility] Last Admin: 03/26/19 09:25 Dose: 100 mg Documented by: Glucagon () 1 mg IM .X1 PRN PRN Reason: Hypoglycemia Heparin Sodium (Porcine) (Heparin Na) 5,000 unit SC Q12 [facility] Last Admin: 03/25/19 21:09 Dose: 5,000 unit Documented by: Dextrose (Dextrose 10%-Water) 250 mls @ 999 mls/hr IV .Q16M PRN; Protocol PRN Reason: HYPOGLYCEMIA Insulin Human Lispro (Humalog Kwikpen (Bkc)) 0 unit SC ACHS [facility]; Protocol Last Admin: 03/26/19 06:34 Dose: 2 u Documented by: Memantine (Namenda) 5 mg PO BID [facility] Stop: 03/30/19 22:01 Last Admin: 03/26/19 09:25 Dose: 5 mg Documented by: Memantine (Namenda) 10 mg PO DAILY [facility] Stop: 04/06/19 10:01 Memantine (Namenda) 5 mg PO DAILY@2200 [facility] Stop: 04/06/19 22:01 Memantine (Namenda) 10 mg PO BID [facility] Metoprolol Tartrate (Lopressor (Beta Vin)) 50 mg PO BID [facility] Last Admin: 03/26/19 09:25 Dose: 50 mg Documented by: Nitroglycerin (Nitrostat) 0.4 mg SUBLINGUAL Q5M PRN PRN Reason: CARDIAC/CHEST PAIN Nystatin (Mycostatin Powder) 1 applic TOPICAL BID [facility]; Protocol Last Admin: 03/25/19 21:10 Dose: 1 applicatio Documented by: Pantoprazole Sodium (Protonix) 20 mg PO DAILY [facility] Last Admin: 03/26/19 09:24 Dose: 20 mg Documented by: Pioglitazone HCl (Actos) 30 mg PO DAILY [facility] Last Admin: 03/26/19 09:25 Dose: 30 mg Documented by: Ramipril (Altace) 5 mg PO DAILY [facility] Last Admin: 03/26/19 09:25 Dose: 5 mg Documented by: Sodium Chloride () 10 - 40 ml IV UD PRN PRN Reason: SALINE FLUSH Last Admin: 03/24/19 21:00 Dose: 10 ml Documented by: Home Medications: Medications to take at Discharge Doxycycline [Vibramycin] 100 mg PO DAILY 12/31/12 Nitroglycerin [Nitrolingual [place]] 0.4 mg SL PRN PRN 12/31/12 Atorvastatin Calcium [Lipitor] 40 mg PO QHS 02/12/19 Pioglitazone [Actos] 30 mg PO DAILY 02/12/19 Esomeprazole Mag Trihydrate [Nexium] 20 mg PO DAILY 02/14/19 Dexamethasone [Decadron] 4 mg PO BID 03/22/19 Memantine HCl 5 mg PO UD 03/22/19 Metoprolol Tartrate [Lopressor (beta vin)] 50 mg PO BID 03/22/19 Ramipril [Altace] 5 mg PO DAILY 03/22/19 Primary Care Physician: Hunter Becker Chi, MD [Primary Care Provider] - Please follow up with your Primary Care Physician in: 1 Week Please Follow Up With: Baljinder Tomlinson MD When: As scheduled Please Follow Up With: Henrik Caldwell MD When: As scheduled Disposition: [facility] facility Minutes spent on discharge:: 35 Patient Condition:: Stable Medical Necessity - Tobacco Use Smoking Status: Former smoker Tobacco Use: Cigarettes Meaningful Use Info Meaningful Use Diagnoses (Choose all that apply): None applicable <Chema Teresa - Last Filed: 03/26/19 14:05> Discharge Date and Diagnosis - Secondary Discharge Diagnosis Chronic Problems (Last Reviewed 03/14/19 @ 10:17 by Carmina Doty) Diabetes mellitus, type II (Chronic) HATCHERY MANAGER lymphoma (Chronic) Presence of stent in coronary artery (Chronic) PTCA/stent of the mid RCA 04/10/02 Atherosclerosis of coronary artery bypass graft without angina pectoris (Chronic) CABG x4- UMANZOR to LAD, SVG to the high lateral and lateral CX, SVG to PDA of the RCA 03/31/06 Hyperlipidemia (Chronic) Hypertension (Chronic) Paroxysmal atrial tachycardia (Chronic) H/O aortic valve replacement (Chronic ~03/31/06) St. Live Bicor tissue valve 21mm 03/31/06 Nonrheumatic aortic valve disorder (Chronic) Intermittent claudication (Chronic) Carotid bruit (Chronic) Left atrial mass (Chronic) AV block, 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) Presence of cardiac pacemaker (Chronic) S/P insertion of iliac artery stent (Chronic) PAD (peripheral artery disease) (Chronic) Hospital Course and Treatment Operations: None Procedures: None Summary of Care Provided: Patient seen and examined independently. Data reviewed. I agree with the above note by the nurse practitioner. The patient is a 78 year old M presents with change of mental status. 1. Debility: Awaiting on insurance authorization for [facility] facility. 2. elevated troponins: EF 60%. Unclear why this was even checked in the first place. No additional work up at this time. 3. B Cell lymphoma: complicates overall care. Undergoing XRT. Need to discuss goals of care with oncology. [] - Physical Exam Vitals/I&O's: Vital Signs Temp Pulse Resp BP Pulse Ox 36.4 C L 63 16 100/51 L 98 03/26/19 13:29 03/26/19 13:29 03/26/19 13:29 03/26/19 13:29 03/26/19 13:29 Oxygen Delivery Method Room Air Weight: 82.4 kg Body Mass Index (BMI) 27.1 Intake and Output for Last 24 Hours 03/24/19 03/25/19 03/26/19 23:59 23:59 23:59 Intake Total 600 / 600 2250 / 2250 0 / 0 Output Total 1325 / 1325 1550 / 1550 Balance -725 / -725 700 / 700 0 / 0 General: Alert, No apparent distress HEENT: Atraumatic, Normocephalic Oral: Moist Mucosa, No Gingival or Mucosal Lesions/ Ulcerations Neck: No Nodes, Trachea Midline Lungs: Clear to auscultation, Normal air movement, No rhonchi, No wheeze, No rales Cardiovascular: Regular rate, Regular Rhythm, Normal S1, Normal S2 Abdomen: Bowel Sounds Present, Soft, Non Tender, Non-Distended, No Hepato-splenomegaly Extremities: No edema, No Calf Tenderness Skin: No rashes, No breakdown Laboratory Results 03/25/19 16:36: POC Glucose 181 H 03/25/19 21:06: POC Glucose 238 H 03/26/19 05:16: WBC 9.2, RBC 4.96, Hgb 14.9, Hct 46.0, MCV 92.7, MCH 30.0, MCHC 32.4, RDW Std Deviation 46.5 H, RDW Coeff of Ni 13.7, Plt Count 160, MPV 10.8 03/26/19 05:16: Sodium 141, Potassium 4.5, Chloride 105, Carbon Dioxide 32.0, Anion Gap 4 L, BUN 74 H, Creatinine 1.58 H, Estim Creat Clear Calc 38.53, Est GFR (MDRD) Af Amer 55 L, Est GFR (MDRD) Non-Af 45 L, BUN/Creatinine Ratio 46.8 H, Glucose 219 H, Calcium 8.4 L 03/26/19 06:32: POC Glucose 165 H 03/26/19 11:30: POC Glucose 260 H Current Medications Atorvastatin Calcium (Lipitor) 40 mg PO QHS [facility] Last Admin: 03/25/19 21:09 Dose: 40 mg Documented by: Bacitracin (Bacitracin Ointment) 1 applic TOPICAL BID [facility]; Protocol Last Admin: 03/26/19 11:35 Dose: Not Given Documented by: Dexamethasone (Decadron) 4 mg PO BIDCM [facility] Last Admin: 03/26/19 08:15 Dose: 4 mg Documented by: Doxycycline Monohydrate (Doxycycline) 100 mg PO DAILY [facility] Last Admin: 03/26/19 09:25 Dose: 100 mg Documented by: Glucagon () 1 mg IM .X1 PRN PRN Reason: Hypoglycemia Heparin Sodium (Porcine) (Heparin Na) 5,000 unit SC Q12 [facility] Last Admin: 03/26/19 11:31 Dose: 5,000 unit Documented by: Dextrose (Dextrose 10%-Water) 250 mls @ 999 mls/hr IV .Q16M PRN; Protocol PRN Reason: HYPOGLYCEMIA Insulin Human Lispro (Humalog Kwikpen (Bkc)) 0 unit SC ACHS [facility]; Protocol Last Admin: 03/26/19 11:33 Dose: 6 u Documented by: Memantine (Namenda) 5 mg PO BID [facility] Stop: 03/30/19 22:01 Last Admin: 03/26/19 09:25 Dose: 5 mg Documented by: Memantine (Namenda) 10 mg PO DAILY [facility] Stop: 04/06/19 10:01 Memantine (Namenda) 5 mg PO DAILY@2200 [facility] Stop: 04/06/19 22:01 Memantine (Namenda) 10 mg PO BID [facility] Metoprolol Tartrate (Lopressor (Beta Vin)) 50 mg PO BID [facility] Last Admin: 03/26/19 09:25 Dose: 50 mg Documented by: Nitroglycerin (Nitrostat) 0.4 mg SUBLINGUAL Q5M PRN PRN Reason: CARDIAC/CHEST PAIN Nystatin (Mycostatin Powder) 1 applic TOPICAL BID [facility]; Protocol Last Admin: 03/26/19 11:32 Dose: 1 applicatio Documented by: Pantoprazole Sodium (Protonix) 20 mg PO DAILY [facility] Last Admin: 03/26/19 09:24 Dose: 20 mg Documented by: Pioglitazone HCl (Actos) 30 mg PO DAILY [facility] Last Admin: 03/26/19 09:25 Dose: 30 mg Documented by: Ramipril (Altace) 5 mg PO DAILY [facility] Last Admin: 03/26/19 09:25 Dose: 5 mg Documented by: Sodium Chloride () 10 - 40 ml IV UD PRN PRN Reason: SALINE FLUSH Last Admin: 03/24/19 21:00 Dose: 10 ml Documented by: Discharge Diet: 1800 Calorie Control Diet Disposition: [facility] facility Minutes spent on discharge:: 35 Patient Condition:: Stable Medical Necessity - Tobacco Use Smoking Status: Former smoker Tobacco Use: Cigarettes Meaningful Use Info Meaningful Use Diagnoses (Choose all that apply): None applicable Code Visit Inpatient E&M: 66327 Disch Hosp
[2019-03-26] MEDS: Heparin Injection (Vial) 5,000 UNIT/ML VIAL 5000 UNIT SC (11:31)
[2019-03-26] MEDS: Nystatin Powder 15gm Bottle 1 APPLIC TOPICAL (11:32)
[2019-03-26 11:51] LABS: Bedside Glucose 260 mg/dL (70-110)
--- NOTE | 2019-03-26 12:26 | PHA.DC.MR ---
Pharmacy Service has performed discharge medication reconciliation for this patient upon transfer to [facility]. The patient's discharge medication list was reviewed for discrepancies and discrepancies were resolved. Home Medications Doxycycline [Vibramycin] 100 mg PO DAILY 12/31/12 Nitroglycerin [Nitrolingual [place]] 0.4 mg SL PRN PRN 12/31/12 Atorvastatin Calcium [Lipitor] 40 mg PO QHS 02/12/19 Pioglitazone [Actos] 30 mg PO DAILY 02/12/19 Esomeprazole Mag Trihydrate [Nexium] 20 mg PO DAILY 02/14/19 Dexamethasone [Decadron] 4 mg PO BID 03/22/19 Memantine HCl 5 mg PO UD 03/22/19 Metoprolol Tartrate [Lopressor (beta annabel)] 50 mg PO BID 03/22/19 Ramipril [Altace] 5 mg PO DAILY 03/22/19
--- NOTE | 2019-03-26 12:34 | CASEMGMT ---
JOSS faxed orders to [facility]. JOSS spoke with [facility] and their pedicab driver can picker tender helper patient at 230. Convalescent was completed on [facility]. JOSS notified RN, engineering secretary, and patient's of d/c and picker tender helper time. Patient's said she already knew as her daughter called her. She thanked JOSS for calling. Plan: d/c to [facility] at [place] under skilled level of care on a convalescent stay. [facility] transport patient. Rina NOBLES MSW
[2019-03-26 13:29] VITALS: BP 100/51; PULSE 63; RESP 16; TEMP 36.4; O2SAT 98
== END 2019-03-26 14:39 | disposition skilled nursing facility (03) | DRG 841 ==
LOC: ED 14:55 → PCU 15:51
PROVIDERS: Internal Medicine; Admitting Provider Student in an Organized Health Care Education/Training Program; Emergency Provider Emergency Medicine; PCP Family Medicine Geriatric Medicine; Referring Provider Student in an Organized Health Care Education/Training Program
DX: C83.39 Diffuse large B-cell lymphoma, extranodal and solid organ sites (principal); E87.2 Acidosis; I44.2 Atrioventricular block, complete; N17.9 Acute kidney failure, unspecified; N18.3 Chronic kidney disease, stage 3 (moderate); E11.22 Type 2 diabetes mellitus with diabetic chronic kidney disease; I12.9 Hypertensive chronic kidney disease with stage 1 through stage 4 chronic kidney disease, or unspecified chronic kidney disease; I25.10 Atherosclerotic heart disease of native coronary artery without angina pectoris; R53.81 Other malaise; R29.6 Repeated falls; Z66 Do not resuscitate; E78.5 Hyperlipidemia, unspecified; K21.9 Gastro-esophageal reflux disease without esophagitis; I73.9 Peripheral vascular disease, unspecified; Z86.73 Personal history of transient ischemic attack (TIA), and cerebral infarction without residual deficits; Z92.3 Personal history of irradiation; Z95.0 Presence of cardiac pacemaker; Z95.1 Presence of aortocoronary bypass graft; Z79.84 Long term (current) use of oral hypoglycemic drugs; Z95.5 Presence of coronary angioplasty implant and graft; Z95.3 Presence of xenogenic heart valve; I35.9 Nonrheumatic aortic valve disorder, unspecified
CPT/HCPCS: 36415; 70450; 71046; 77280; 77307; 77334; 77412; 80048; 80053; 81001; 82962; 83605; 83735; 83880; 84484; 85025; 85027; 93005; 93306; 97110; 97116; 97162; 97166; 97530; 97535; 99283; J7030; A4216; J1940

== ENCOUNTER → 2019-06-20 13:30 | Outpatient (CLI) | payer MEDICARE, OTHER, SELFPAY ==
[2019-02-14 13:39] VITALS: BMI 29.3
[2019-04-23 11:53] VITALS: BMI 27.5
--- NOTE | 2019-06-20 13:32 | CT_ITS ---
STUDY: CT BRAIN WITH AND WITHOUT CONTRAST REASON FOR EXAM: Male, 78 years old. INJURY, CONFUSION, HX BRAIN BX RADIATION DOSAGE (If Supplied By Facility): CTDIvol = ( 44.99 ) mGy, DLP = ( 1614.72 ) mGycm TECHNIQUE: Transaxial CT imaging of the brain was performed pre and post contrast administration. The examination was performed with intravenous administration of IV 50mL Isovue-370. Individualized dose optimization techniques were used for this CT. COMPARISON: None. FINDINGS: Normal soft tissue structures. There is a hanny hole in the left parietal bone from prior brain biopsy. There is mild cerebral atrophy with widening of the extra-axial spaces and ventricular dilatation. There are areas of decreased attenuation within the white matter tracts of the supratentorial brain, consistent with microvascular disease changes. Normal basal ganglia and thalami. Normal brainstem. Normal cerebellum. There is no intracranial hemorrhage. There are no findings of an acute ischemic infarction. Normal visualized paranasal sinuses. CT/Brain/Head W/WO Contrast IMPRESSION: Chronic involutional changes of the brain. Electronically Signed: Bina Huber, at 14:07 EDT Tel , Service support ,
[2019-06-20 13:40] LABS: CREATININE FINGERSTICK 1.4 mg/dL (0.70-1.30)
== END ==
PROVIDERS: PCP Family Medicine Geriatric Medicine; Referring Provider Student in an Organized Health Care Education/Training Program; Visit Provider Student in an Organized Health Care Education/Training Program
DX: C85.89 Other specified types of non-Hodgkin lymphoma, extranodal and solid organ sites (principal)
CPT/HCPCS: 70470; Q9967

== ENCOUNTER → 2019-06-25 13:58 | Outpatient (CLI) | payer MEDICARE, OTHER, SELFPAY ==
[2019-02-14 13:39] VITALS: BMI 29.3
[2019-04-23 11:53] VITALS: BMI 27.5
[2019-06-25 15:40] LABS: Absolute Lymphocyte Count 1.49 X10^3/uL (0.83-4.51); Absolute Neutrophil Count 3.5 X10^3/uL (2.0-7.7); Basophil# 0.02 X10^3/uL; Basophil% 0.3 % (0-1); Eosinophil# 0.18 X10^3/uL; Eosinophils% 3.1 % (0-5); Hematocrit 40.3 % (40-54); Hemoglobin 12.7 g/dL (13.0-16.5); Lymphocyte # 1.49 X10^3/ul (4.0); Lymphocyte % 25.6 % (19-41); Mean Corp Hgb Conc 31.5 g/dL (32-36); Mean Corpuscular Hgb 30.8 pg (27.0-32.0); Mean Corpuscular Volume 97.8 fL (80-94); Mean Platelet Vol. 11.2 fl (6.2-12.0); Monocyte# 0.64 X10^3/uL; NRBC Flagged by Analyzer 0 % (0-5); Neutrophil # 3.48 X10^3/uL (2.7-7.7); Neutrophil % 59.8 % (47-70); Platelet Count 167 K/mm3 (150-450); RBC Distribution Width CV 12.2 % (11.6-14.6); RBC Distribution Width SD 43.8 fl (35.1-43.9); Red Blood Count 4.12 M/mm3 (4.6-6.2); White Blood Count 5.8 K/mm3 (4.4-11.0)
[2019-06-25 16:13] LABS: ALB/GLOB Ratio 0.8 RATIO (0.9-2.4); AST(SGOT) 14 U/L (15-37); Alanine Aminotransfer ALT/SGPT 16 U/L (16-61); Albumin, Serum 3.2 g/dL (3.2-5.0); Alkaline Phosphatase 107 U/L (45-117); Anion Gap 7 (5-15); BUN 17 mg/dL (7-18); Calcium,Total 9.1 mg/dL (8.5-10.1); Chloride 106 mmol/L (98-107); Creatinine, Serum 1.55 mg/dL (0.70-1.30); EST Glomerular Filtration Rate 46 mL/min (>60); Est Glom Filt Rate - Afr Amer 56 mL/min (>60); Glucose 141 mg/dL (74-106); Potassium 3.7 mmol/L (3.5-5.1); Protein, Total 7.2 g/dL (6.4-8.2); Sodium Level 140 mmol/L (136-145)
== END ==
PROVIDERS: PCP Family Medicine Geriatric Medicine; Referring Provider Family Medicine Geriatric Medicine; Visit Provider Family Medicine Geriatric Medicine
DX: E11.9 Type 2 diabetes mellitus without complications (principal); I10 Essential (primary) hypertension
CPT/HCPCS: 36415; 80053; 84443; 85025

== ENCOUNTER 2019-07-05 13:23 | Outpatient (RCR) | payer MEDICARE, OTHER, SELFPAY ==
[2019-02-14 13:39] VITALS: BMI 29.3
[2019-04-23 11:53] VITALS: BMI 27.5
[2019-07-05 13:52] LABS: Color, Urine Yellow (Yellow); Glucose, Dipstick Normal (Normal); Ketone-Dipstick Negative (Negative); Leukocyte Esterase-Dipstick Negative /ul (Negative); Nitrite-Dipstick Negative (Negative); Occult Blood-Urine Negative /ul (Negative); Protein-Dipstick 15 mg/dl (Negative); Urine Bilirubin Dipstick Negative (Negative); Urine Clarity Sl. Cloudy (Clear); Urine Urobilinogen Normal (Normal); Urine pH 6.5 (5.0 - 8.0)
== END 2019-07-05 18:00 | disposition home or self-care (01) ==
LOC: HHLAB 13:23
PROVIDERS: PCP Family Medicine Geriatric Medicine; Referring Provider Family Medicine Geriatric Medicine; Visit Provider Family Medicine Geriatric Medicine
DX: C83.30 Diffuse large B-cell lymphoma, unspecified site (principal); E11.22 Type 2 diabetes mellitus with diabetic chronic kidney disease; N18.9 Chronic kidney disease, unspecified; R41.0 Disorientation, unspecified
CPT/HCPCS: 81002; 87086; 87088